=== PATIENT | female | born 2000 | race Caucasian/White ===

== ENCOUNTER → 2020-06-24 08:52 | Outpatient (BNVA) | payer OTHER, SELFPAY | PROVIDERS: Visit Provider Advanced Practice Midwife | DX: Z30.42 Encounter for surveillance of injectable contraceptive (principal) | CPT/HCPCS: 96372 ==

== ENCOUNTER → 2020-09-22 14:47 | Outpatient (BNVA) | payer OTHER, SELFPAY | PROVIDERS: Visit Provider Advanced Practice Midwife | DX: Z30.42 Encounter for surveillance of injectable contraceptive (principal) | CPT/HCPCS: 96372; J1050 ==

== ENCOUNTER → 2020-12-08 09:03 | Outpatient (BNVA) | payer OTHER, SELFPAY | PROVIDERS: Visit Provider Advanced Practice Midwife | DX: Z30.42 Encounter for surveillance of injectable contraceptive (principal) | CPT/HCPCS: 96372; J1050 ==

== ENCOUNTER 2021-02-27 14:01 | Outpatient (REF) | payer OTHER, SELFPAY ==
[2021-02-28 02:37] LABS: CT PCR NOT DETECTED (Not Detect.); NG PCR NOT DETECTED (Not Detect.)
== END 2021-02-27 14:02 | disposition home or self-care (01) ==
LOC: HO.LAB 14:01
PROVIDERS: Visit Provider Advanced Practice Midwife
DX: Z30.42 Encounter for surveillance of injectable contraceptive (principal); Z20.2 Contact with and (suspected) exposure to infections with a predominantly sexual mode of transmission
CPT/HCPCS: 87491; 87591; 88142; 96372

== ENCOUNTER → 2021-05-17 09:12 | Outpatient (BNVA) | payer OTHER, SELFPAY | PROVIDERS: Visit Provider Advanced Practice Midwife | DX: Z30.9 Encounter for contraceptive management, unspecified (principal) | CPT/HCPCS: 96372 ==

== ENCOUNTER → 2021-08-09 14:53 | Outpatient (BNVA) | payer OTHER, SELFPAY | PROVIDERS: Visit Provider Advanced Practice Midwife | DX: Z30.42 Encounter for surveillance of injectable contraceptive (principal) | CPT/HCPCS: 96372 ==

== ENCOUNTER → 2021-10-26 09:07 | Outpatient (BNVA) | payer OTHER, SELFPAY | PROVIDERS: Visit Provider Advanced Practice Midwife | DX: Z30.42 Encounter for surveillance of injectable contraceptive (principal) | CPT/HCPCS: 96372 ==

== ENCOUNTER → 2022-01-17 08:48 | Outpatient (BNVA) | payer OTHER, SELFPAY | PROVIDERS: Visit Provider Advanced Practice Midwife | DX: Z30.42 Encounter for surveillance of injectable contraceptive (principal) | CPT/HCPCS: 96372 ==

== ENCOUNTER 2022-03-02 14:58 | Outpatient (REF) | payer OTHER, SELFPAY ==
[2022-03-03 05:22] LABS: CT PCR NOT DETECTED (Not Detect.); NG PCR NOT DETECTED (Not Detect.)
[2022-03-08 06:46] LABS: HPV mRNA E6/E7 rflx Not Detected (Not Detected)
== END 2022-03-02 14:59 | disposition home or self-care (01) ==
LOC: HO.LAB 14:58
PROVIDERS: Visit Provider Advanced Practice Midwife
DX: R87.610 Atypical squamous cells of undetermined significance on cytologic smear of cervix (ASC-US) (principal); R87.810 Cervical high risk human papillomavirus (HPV) DNA test positive
CPT/HCPCS: 87491; 87591; 87624; 88142

== ENCOUNTER → 2022-04-09 09:35 | Outpatient (BNVA) | payer OTHER, SELFPAY | PROVIDERS: Visit Provider Advanced Practice Midwife | DX: Z30.42 Encounter for surveillance of injectable contraceptive (principal) | CPT/HCPCS: 96372 ==

== ENCOUNTER → 2022-07-02 08:54 | Outpatient (BNVA) | payer OTHER, SELFPAY | PROVIDERS: PCP Physician Assistant; Visit Provider Advanced Practice Midwife | DX: Z30.42 Encounter for surveillance of injectable contraceptive (principal) | CPT/HCPCS: 96372 ==

== ENCOUNTER → 2022-09-24 08:59 | Outpatient (BNVA) | payer OTHER, SELFPAY | PROVIDERS: PCP Physician Assistant; Visit Provider Advanced Practice Midwife | DX: Z30.42 Encounter for surveillance of injectable contraceptive (principal) | CPT/HCPCS: 96372 ==

== ENCOUNTER → 2022-12-11 08:09 | Outpatient (BNVA) | payer OTHER, SELFPAY | PROVIDERS: PCP Physician Assistant; Visit Provider Advanced Practice Midwife | DX: Z30.42 Encounter for surveillance of injectable contraceptive (principal) | CPT/HCPCS: 96372 ==

== ENCOUNTER → 2023-02-28 08:59 | Outpatient (BNVA) | payer OTHER, SELFPAY | PROVIDERS: PCP Physician Assistant; Visit Provider Advanced Practice Midwife | DX: Z30.42 Encounter for surveillance of injectable contraceptive (principal) | CPT/HCPCS: 96372 ==

== ENCOUNTER 2023-04-19 14:06 | Outpatient (REF) | payer OTHER, SELFPAY ==
[2023-04-19 18:14] LABS: CT PCR NOT DETECTED (Not Detect.); NG PCR NOT DETECTED (Not Detect.)
== END 2023-04-19 14:07 | disposition home or self-care (01) ==
LOC: HO.LNP 14:06
PROVIDERS: PCP Physician Assistant; Visit Provider Advanced Practice Midwife
DX: Z20.2 Contact with and (suspected) exposure to infections with a predominantly sexual mode of transmission (principal)
CPT/HCPCS: 0353U

== ENCOUNTER → 2023-04-19 14:06 | Outpatient (AMB) | payer OTHER, SELFPAY ==
[2023-04-19 14:12] VITALS: BP 116/72; BMI 24.7
--- NOTE | 2023-04-19 14:12 | MHC.OFFVIS ---
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 Scribed for FELICITA Ortiz by Nolvia Tolentino medical intern, on 04/19/2023 at 2:30 pm EST. Hydroelectric Component Machinist Required: No Information Interpreted: non-clinical & clinical Hospital Supervisor: Hospital Supervisor Present (Ivana CLEMENT) Accompanied by: Self / Same As Patient Allergies No Known Allergies Allergy (Verified 04/19/23 14:17) Is last menstrual period known: No HPI HPI Comments History of Present Illness Details She is a premenopausal woman presenting for annual exam. She was recently admitted to ED for allergic reaction. She admits to eating healthy and tries to stay active with exercise. Currently sexually active. Uses Depo Provera for BC. Denies vaginal itching and irritation. STD screening offered; she accepts. STD blood work offered; she declines. Denies family hx of breast, colon and ovarian cancer. Last pap smear 03/06/22. She denies any contraindications to control such as: migraines with aura, history of DVT or pulmonary emboli, high blood pressure, liver disease, thrombolic disorders, Lupus, +JASON, or smoking. Reviewed use, side effects and warnings including ACHES. FMHx of DVT and pulmonary emboli. 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 Sexual orientation: Straight/Heterosexual Gender identity: Female Female Reproductive History Menstrual control method: progesterone injection Date of last pap smear: 03/06/22 History of abnormal pap smear: Yes (Ascus,HPV +) Physical Exam Vital Signs: Last Vital Signs BP 116/72 04/19/23 14:12 BMI result Body Mass Index 24.7 Const General: cooperative, healthy appearing, no acute distress, well developed and alert Orientation/consciousness: patient oriented x3 HEENT Head: Yes normal to inspection Eyes General: appearance normal, both eyes and all related structures Neck Neck: Yes normal visual inspection Thyroid: Thyroid normal Chest Chest palpation & inspection: normal inspection of the chest Breast/axilla inspection: normal inspection of the breasts (no puckering, dimpling, peau de orange, retraction, discharge, masses) Breast/axilla palpation: normal palpation of the breasts Resp Effort & Inspection: normal respiratory effort GI Inspection: Yes normal to inspection Palpation (GI): Soft to palpation (to palpation) Rectal Exam - Female: deferred General: Yes bladder normal to inspection External Female Exam: normal external appearance and normal appearance of the urethra Speculum Exam - Vagina: normal appearance of the vagina, normal palpation and normal vaginal discharge Speculum Exam - Cervix: normal appearance of the cervix and normal palpation Bimanual exam- vagina & uterus: normal palpation and normal palpation Bimanual Exam- Adnexa, other: normal adnexae and no masses Skin General skin exam: no rashes or lesions noted Neuro General: patient oriented x3 Cognition (Neuro): normal cognition Extrem General: Yes normal to inspection Psych Attitude: cooperative Thought process: Normal thought process present Assessment & Plan Assessment & Plan (1) Encounter for well woman exam: Code(s): Z01.419 - Encounter for gynecological examination (general) (routine) without abnormal findings Plan: Discussed: Current recommendations for pap smears per ASCCP guidelines Breast awareness and periodic self breast exams. Maintaining a healthy lifestyle including a well balanced diet and routine exercise. Advised to contact about fathers diagnosis of DVT. All of her questions and concerns were addressed to the best of my ability. RTO in one year for AG. She denies any contraindications to control such as: migraines with aura, history of DVT or pulmonary emboli, high blood pressure, liver disease, thrombolic disorders, Lupus, +JASON, or smoking. Reviewed use, side effects and warnings including ACHES. FMHx of DVT. (2) Surveillance for Depo-Provera contraception: Code(s): Z30.42 - Encounter for surveillance of injectable contraceptive Plan: She was instructed to go to ER if she develops loss of vision, severe headache that does not resolve, chest pain, difficulty breathing, abdominal pain, or pain or tenderness in extremity or new breast lumps. Call the office with any concerns. (3) Potential exposure to STD: Code(s): Z20.2 - Contact with and (suspected) exposure to infections with a predominantly sexual mode of transmission Plan: BV testing and GC/CT panel done today. Await results and treat accordingly. Orders: Orders CT NG by PCR Today Z20.2 - Contact with and (suspected) exposure to infections with a predominantly sexual mode of transmission Medications: Refilled medroxyprogesterone (Depo-Provera) 150 mg IM [id number] 1 mL 4RF Coding Level of Care Code Est Pt Prev Care 18-39y(25593) Diagnoses Encounter for well woman exam Z01.419 Surveillance for Depo-Provera contraception Z30.42 Potential exposure to STD Z20.2
== END ==
PROVIDERS: PCP Physician Assistant; Visit Provider Advanced Practice Midwife
DX: Z01.419 Encounter for gynecological examination (general) (routine) without abnormal findings (principal); Z20.2 Contact with and (suspected) exposure to infections with a predominantly sexual mode of transmission
CPT/HCPCS: 99395

== ENCOUNTER 2023-05-24 15:03 | Outpatient (AMB) | payer OTHER, SELFPAY ==
[2023-05-24 15:43] VITALS: BMI 24.9
--- NOTE | 2023-05-24 15:43 | AM.OFFVISNUR ---
Intake Vital Signs 05/24/23 15:43 Height 5 ft 4 in Weight 145 lb 2 oz BMI 24.9 Intake Visit Reasons: DEPO Technical Operations Specialist Required: No Allergies No Known Allergies Allergy (Verified 04/19/23 14:17) Is last menstrual period known: No Post menopausal: No Patient : No Nursing Note Pt is here for scheduled Depo Provera injection. No c/o. Pt tolerated injection well. Pt will schedule her next injection in 12 weeks. No further questions. Office Procedures Depo Questionnaire If YES to any of the following questions, please consult a provider. Date of last injection: 02/28/23 Date of last gynecology exam: 04/19/23 Menstrual pattern since last injection has been: Not Applicable Irregular bleeding?: No Breast lumps or other breast changes?: No Changes in weight or appetite?: No Depression or changes in mood?: No Abnormal hair growth or loss?: No Skin problems (rash, acne, discoloration)?: No Pain at the injection site?: No Headaches?: No Nervousness?: No Abdominal pain or cramping?: No Dizziness or nausea?: No Fatigue or weakness?: No Decrease in sexual drive?: No Chest pain or shortness of breath?: No Swelling in arms or legs?: No Form completed by?: Ginny Curtis licensed massage practitioner Meds Depo-Provera 150 mg/mL intramuscular syringe Performing Provider: Keara Lutz CNM [place] [facility] [place] [facility] Administered by: Ginny Curtis on 05/24/23 15:46 Dose Route Admin Location Dispensed Lot Number Expiration Date [facility] Pole Shaver Helper 150 mg IM left deltoid 1 mL [id number] 06/08/25 73306-227-45 [facility] Coding Level of Care Code Established Pt Est Pt Level 1 (34202) Patient Type Established History Problem Focused Medical Decision Making Straight Forward Time Spent (min) 12 Assessment & Plan Assessment & Plan Orders: Orders AMB Medroxyprogesterone Injection Patient Supplied Today Z30.42 - Encounter for surveillance of injectable contraceptive
== END 2023-05-24 15:40 | disposition home or self-care (01) ==
PROVIDERS: PCP Physician Assistant; Visit Provider Advanced Practice Midwife
DX: Z30.42 Encounter for surveillance of injectable contraceptive (principal)

== ENCOUNTER → 2023-05-24 15:03 | Outpatient (BNVA) | payer OTHER, SELFPAY | PROVIDERS: PCP Physician Assistant; Visit Provider Advanced Practice Midwife | DX: Z30.42 Encounter for surveillance of injectable contraceptive (principal) | CPT/HCPCS: 96372; 99211; J1050 ==

== ENCOUNTER 2023-08-14 09:07 | Outpatient (AMB) | payer OTHER, SELFPAY ==
--- NOTE | 2023-08-14 09:18 | AM.OFFVISNUR ---
Intake Vital Signs 08/14/23 09:19 Height 5 ft 4 in Weight 69.513 kg BMI 26.3 Intake Visit Reasons: DEPO Allergies No Known Allergies Allergy (Verified 04/19/23 14:17) Nursing Note Dania is here today for her scheduled Depo-Provera Inj. She denies any problems or concerns. Pt was advised to schedule her next appt for Inj. in 12 weeks. Office Procedures Depo Questionnaire If YES to any of the following questions, please consult a provider. Date of last injection: 05/24/23 Date of last gynecology exam: 04/19/23 Menstrual pattern since last injection has been: Not Applicable Irregular bleeding?: No Breast lumps or other breast changes?: No Changes in weight or appetite?: No Depression or changes in mood?: No Abnormal hair growth or loss?: No Skin problems (rash, acne, discoloration)?: No Pain at the injection site?: No Headaches?: No Nervousness?: No Abdominal pain or cramping?: No Dizziness or nausea?: No Fatigue or weakness?: No Decrease in sexual drive?: No Chest pain or shortness of breath?: No Swelling in arms or legs?: No Any other problems or concerns?: none voiced Form completed by?: Gigi cortez LPN Office Meds Depo-Provera 150 mg/mL intramuscular syringe Performing Provider: Keara Lutz CNM Performing Location: [facility] [place] [facility] Administered by: Soila Cortez LPN on 08/14/23 09:19 Dose Route Admin Location Dispensed Lot Number Expiration Date [facility] [place] Cook Vegetable 150 mg IM left deltoid 1 mL [id number] 10/09/25 44445-141-22 [facility] Coding Level of Care Code Established Pt Est Pt Level 1 (68606) Patient Type Established History Problem Focused Exam Problem Focused Medical Decision Making Straight Forward Time Spent (min) 15 Assessment & Plan Assessment & Plan Orders: Orders AMB Medroxyprogesterone Injection Patient Supplied Today Z30.42 - Encounter for surveillance of injectable contraceptive
[2023-08-14 09:19] VITALS: BMI 26.3
== END 2023-08-14 09:30 | disposition home or self-care (01) ==
LOC: HO.HWS 09:07
PROVIDERS: PCP Physician Assistant; Visit Provider Advanced Practice Midwife
DX: Z30.42 Encounter for surveillance of injectable contraceptive (principal)

== ENCOUNTER → 2023-08-14 09:07 | Outpatient (BNVA) | payer OTHER, SELFPAY | PROVIDERS: PCP Physician Assistant; Visit Provider Advanced Practice Midwife | DX: Z30.42 Encounter for surveillance of injectable contraceptive (principal) | CPT/HCPCS: 96372; 99211; J1050 ==

== ENCOUNTER 2023-11-05 08:54 | Outpatient (AMB) | payer OTHER, SELFPAY ==
[2023-11-05 09:34] VITALS: BMI 24.7
--- NOTE | 2023-11-05 09:34 | AM.OFFVISNUR ---
Intake Vital Signs 11/05/23 09:34 Height 5 ft 4 in Weight 65.317 kg BMI 24.7 Intake Visit Reasons: DEPO Allergies No Known Allergies Allergy (Verified 04/19/23 14:17) Nursing Note Ivette is here today for her scheduled Depo-provera inj. Pt denies any problems or concerns. Return in 12 wks for next inj. Office Procedures Depo Questionnaire If YES to any of the following questions, please consult a provider. Date of last injection: 08/14/23 Date of last gynecology exam: 04/19/23 Menstrual pattern since last injection has been: Not Applicable Irregular bleeding?: No Breast lumps or other breast changes?: No Changes in weight or appetite?: No Depression or changes in mood?: No Abnormal hair growth or loss?: No Skin problems (rash, acne, discoloration)?: No Pain at the injection site?: No Headaches?: No Nervousness?: No Abdominal pain or cramping?: No Dizziness or nausea?: No Fatigue or weakness?: No Decrease in sexual drive?: No Chest pain or shortness of breath?: No Swelling in arms or legs?: No Form completed by?: Gigi Huang LPN Office Meds Depo-Provera 150 mg/mL intramuscular syringe Performing Provider: Keara Lutz CNM Performing Location: [facility] [place] [facility] Administered by: Soila Huang LPN on 11/05/23 09:34 Dose Route Admin Location Dispensed Lot Number Expiration Date [facility] Motorcycle Service Technician 150 mg IM left deltoid 1 mL [id number] 08/08/24 85318-134-59 [facility] Coding Level of Care Code Established Pt Est Pt Level 1 (49124) Patient Type Established History Problem Focused Exam Problem Focused Medical Decision Making Straight Forward Time Spent (min) 20 Assessment & Plan Assessment & Plan Orders: Orders AMB Medroxyprogesterone Injection Patient Supplied Today Z30.42 - Encounter for surveillance of injectable contraceptive
== END 2023-11-05 09:26 | disposition home or self-care (01) ==
LOC: HO.HWS 08:55
PROVIDERS: PCP Physician Assistant; Visit Provider Advanced Practice Midwife
DX: Z30.42 Encounter for surveillance of injectable contraceptive (principal)

== ENCOUNTER → 2023-11-05 08:54 | Outpatient (BNVA) | payer OTHER, SELFPAY | PROVIDERS: PCP Physician Assistant; Visit Provider Advanced Practice Midwife | DX: Z30.42 Encounter for surveillance of injectable contraceptive (principal) | CPT/HCPCS: 96372; 99211; J1050 ==

== ENCOUNTER 2024-01-28 08:59 | Outpatient (AMB) | payer OTHER, SELFPAY ==
[2024-01-28 09:06] VITALS: BP 124/72; BMI 24.2
--- NOTE | 2024-01-28 09:06 | MHC.OFFVIS ---
Vital Signs 01/28/24 09:06 Height 5 ft 4 in Weight 141 lb BMI 24.2 BP 124/72 Blood Pressure Location Rt brachial Position Sitting Intake Visit Reasons: breast check/DEPO Allergies No Known Allergies Allergy (Verified 01/28/24 09:07) Is last menstrual period known: No (depo ) HPI Comments Details: Ronda is here today for an unscheduled visit while she was having her Depo-Provera she reported to the nurse she was having some breast discomfort. Pain on the left breast medial aspect at 09:00 o'clock for a month and a half, most days, no previous injury, breast biopsy, infection symptoms, nipple discharge or skin changes. Family history of breast cancer. Current Depo Provera use. 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 Sexual orientation: Straight/Heterosexual Gender identity: Female Review of Systems Const All systems reviewed & are unremarkable except as noted in HPI and below Reports as per HPI Eyes Reports no additional complaints ENT Reports no additional complaints Card Reports no additional complaints Resp Reports no additional complaints GI Reports as per HPI and Reports no additional complaints Reports as per HPI Musc Reports no additional complaints Skin/Breast Reports as per HPI Neuro Reports no additional complaints Psych Reports no additional complaints Endo Reports no additional complaints Lai/Lymph Reports no additional complaints Aller/Immun Reports no additional complaints Physical Exam Vital Signs: Last Vital Signs BP 124/72 01/28/24 09:06 BMI result Body Mass Index 24.2 Const General: cooperative, healthy appearing, no acute distress, well developed and alert Orientation/consciousness: patient oriented x3 HEENT Head: Yes normal to inspection Eyes General: appearance normal, both eyes and all related structures Neck Neck: Yes normal visual inspection Thyroid: Thyroid normal Chest Other: Tenderness to the medial aspect of the breast small palpable roundness not well defined at 09:00 o'clock position of left breast Chest palpation & inspection: normal inspection of the chest and other (no puckering, dimpling, peau de orange, retraction, discharge, masses) Breast/axilla inspection: normal inspection of the breasts Breast/axilla palpation: normal palpation of the breasts Resp Effort & Inspection: normal respiratory effort GI Inspection: Yes normal to inspection Palpation (GI): Soft to palpation Rectal Exam - Female: deferred General: Yes bladder normal to palpation External Female Exam: normal external appearance and normal appearance of the urethra Speculum Exam - Vagina: normal appearance of the vagina, normal palpation and normal vaginal discharge Speculum Exam - Cervix: normal appearance of the cervix and normal palpation Bimanual exam- vagina & uterus: normal bimanual exam, normal palpation, uterine size normal, bladder normal to palpation, normal palpation and non-tender Bimanual Exam- Adnexa, other: no masses Skin General skin exam: no rashes or lesions noted Rashes: no rashes Neuro General: patient oriented x3 Cognition (Neuro): normal cognition Extrem General: Yes normal to inspection Psych Attitude: cooperative Thought process: Normal thought process present Assessment & Plan Assessment & Plan (1) Breast pain, left: Code(s): N64.4 - Mastodynia Category: Medical Plan: . (2) Breast pain: Code(s): N64.4 - Mastodynia Category: Medical Plan Discussed common causes for breast pain, workup to include breast ultrasound, All of her questions and concerns were addressed to the best of my ability and shared decision making. She is agreeable to the plan of care. Scheduled breast ultrasound, follow up after to discuss results. If pain or lump area increases in size or is bothersome to call sooner for evaluation. This note is constructed using voice recognition software. While every effort has been made to ensure accuracy, free lance artist errors may have been included. Orders: Orders US breast LT complete Today N64.4 - Mastodynia Coding Level of Care Code Est Pt Level 3 (28784) Diagnoses Breast pain, left N64.4 Breast pain N64.4
== END 2024-01-28 09:19 | disposition home or self-care (01) ==
PROVIDERS: PCP Physician Assistant; Visit Provider Advanced Practice Midwife
DX: N64.4 Mastodynia (principal); Z30.9 Encounter for contraceptive management, unspecified
CPT/HCPCS: 99213

== ENCOUNTER → 2024-01-28 08:59 | Outpatient (BNVA) | payer OTHER, SELFPAY | PROVIDERS: PCP Physician Assistant; Visit Provider Advanced Practice Midwife | DX: Z30.42 Encounter for surveillance of injectable contraceptive (principal); N64.4 Mastodynia | CPT/HCPCS: 96372; J1050 ==

== ENCOUNTER 2024-02-17 12:51 | Outpatient (REF) | payer OTHER, SELFPAY ==
--- NOTE | ~2024-02-17 | US_ITS ---
EXAMINATION: US DIAGNOSTIC ULTRASOUND BREAST, LEFT CLINICAL INFORMATION: 24-year-old female, complaining of 2 left palpable lumps with associated tenderness, pea-sized, 9-10 o'clock axis axis x1 month as well as 4:00 axis. No significant family history. COMPARISON: None available. Baseline study. TECHNIQUE: Ultrasound of the breast is performed with real-time waldron scale imaging and color Doppler. Left breast was imaged from the 7:00 to 11:00 axis, at 1:00 to the 4:00 axis, with help from the patient indicating areas of concern. FINDINGS: Within the 11:00 axis of the left breast, 3 cm from the nipple, there is a minimally complicated cyst with low-level internal echoes, circumscribed borders, wider than tall, good through transmission, measuring 7 x 4 x 3 mm. No internal color Doppler flow seen. No surrounding distortion. This correlates with the upper area of palpable concern. This is probably benign, representing a minimally complicated cyst. Within the 4:00 axis of the left breast, 11 cm from the nipple, there is a benign-appearing intramammary lymph node measuring 5 mm in diameter, correlating with the second area of palpable concern. This has a prominent fatty hilum, thin cortex, and normal adiel morphology. This finding is benign and no further follow-up recommended. No additional abnormalities are detected. US/US breast LT limited mamm only IMPRESSION: 1. Benign lymph node 4:00 axis left breast measuring 5 mm. This correlates with the lateral axis palpable area of concern. 2. Minimally complicated cyst 11:00 axis left breast measuring 7 x 4 x 3 mm. This is probably benign, and represents the medial area of palpable concern. Six-month follow-up targeted left breast ultrasound recommended to ensure stability. Findings and recommendations discussed with the patient by the technologist. ASSESSMENT: BI-RADS 3: Probably Benign-6 month follow-up recommended RECOMMENDATION: Diagnostic targeted left ultrasound in 6 months.
== END 2024-02-17 12:52 | disposition home or self-care (01) ==
LOC: HO.MAMMO 12:51
PROVIDERS: PCP Internal Medicine; Visit Provider Advanced Practice Midwife
DX: N64.4 Mastodynia (principal)
CPT/HCPCS: 76642

== ENCOUNTER → 2024-02-17 13:00 | Outpatient (BNV) | payer OTHER, SELFPAY | PROVIDERS: PCP Internal Medicine; Visit Provider Radiology Diagnostic Radiology | DX: N63.25 Unspecified lump in the left breast, overlapping quadrants (principal) | CPT/HCPCS: 76642 ==

== ENCOUNTER 2024-04-14 09:00 | Outpatient (AMB) | payer OTHER, SELFPAY ==
[2024-04-14 09:09] VITALS: BMI 24.6
--- NOTE | 2024-04-14 09:09 | AM.OFFVISNUR ---
Vital Signs 04/14/24 09:09 Height 5 ft 4 in Weight 64.977 kg BMI 24.6 Intake Visit Reasons: Depo Allergies No Known Allergies Allergy (Verified 01/28/24 09:07) Nursing Note Dania is here today for her scheduled Depo-Provera INJ. NO c/o. pt has AG scheduled for 05/05/24 @ 1pm. Office Procedures Depo Questionnaire If YES to any of the following questions, please consult a provider. Date of last injection: 01/28/24 Date of last gynecology exam: 04/19/23 Menstrual pattern since last injection has been: Not Applicable Irregular bleeding?: No Breast lumps or other breast changes?: No Changes in weight or appetite?: No Depression or changes in mood?: No Abnormal hair growth or loss?: No Skin problems (rash, acne, discoloration)?: No Pain at the injection site?: No Headaches?: No Nervousness?: No Abdominal pain or cramping?: No Dizziness or nausea?: No Fatigue or weakness?: No Decrease in sexual drive?: No Chest pain or shortness of breath?: No Swelling in arms or legs?: No Form completed by?: Gigi Huang LPN Office Meds Depo-Provera 150 mg/mL intramuscular syringe Performing Provider: Keara Lutz CNM Performing Location: [facility] [place] [facility] Administered by: Soila Huang LPN on 04/14/24 09:10 Dose Route Admin Location Dispensed Lot Number Expiration Date [facility] Conceptor 150 mg IM left deltoid 1 mL [id number] 09/08/26 73335-582-48 [facility] Assessment & Plan Assessment & Plan Orders: Orders AMB Medroxyprogesterone Injection Patient Supplied Today Z30.42 - Encounter for surveillance of injectable contraceptive Medications: New Depo-Provera (medroxyprogesterone) 150 mg IM ONCE 1 mL 0RF NS Z30.42 - Encounter for surveillance of injectable contraceptive
== END 2024-04-14 09:08 | disposition home or self-care (01) ==
LOC: HO.HWS 09:00
PROVIDERS: PCP Internal Medicine; Visit Provider Advanced Practice Midwife
DX: Z30.42 Encounter for surveillance of injectable contraceptive (principal)

== ENCOUNTER → 2024-04-14 09:00 | Outpatient (BNVA) | payer OTHER, SELFPAY | PROVIDERS: PCP Internal Medicine; Visit Provider Advanced Practice Midwife | DX: Z30.42 Encounter for surveillance of injectable contraceptive (principal) | CPT/HCPCS: 96372; 99211; J1050 ==

== ENCOUNTER 2024-05-05 12:50 | Outpatient (AMB) | payer OTHER, SELFPAY ==
--- NOTE | 2024-05-05 12:54 | A.OFFVIS_ITS ---
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 Doing well with concerns: Left breast pain, history of left breast cyst and lymph gland, has six-month follow up booked. She tries to eat healthy, lactose intolerant, does not have calcium products in her diet regularly, and stays active with walking. No menses with Depo-Provera. Happy on the method wants to continue. She denies any contraindications to control such as: migraines with aura, history of DVT or pulmonary emboli, high blood pressure, liver disease, thrombolic disorders, Lupus, +JASON, breast cancer, or smoking. Currently is not sexually active. She denies vaginal itching and irritation. STI screening offered; she declines. Denies family history of breast, ovarian or colon cancer. Last pap smear 2021, negative, 2020 negative, prior HPV positive and ASCUS. 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 Sexual orientation: Straight/Heterosexual Gender identity: Female Female Reproductive History Menstrual control method: progesterone injection (Depo 04/14/24) Total pregnancies: 0 Date of last pap smear: 03/02/22 (neg pap and hpv) History of abnormal pap smear: Yes (01/26 ascus +hpv) Review of Systems Const All systems reviewed & are unremarkable except as noted in HPI and below Reports as per HPI Eyes Reports no additional complaints ENT Reports no additional complaints Card Reports no additional complaints Resp Reports no additional complaints GI Reports as per HPI and Reports no additional complaints Reports as per HPI Musc Reports no additional complaints Skin/Breast Reports as per HPI Neuro Reports no additional complaints Psych Reports no additional complaints Endo Reports no additional complaints Lai/Lymph Reports no additional complaints Aller/Immun Reports no additional complaints Physical Exam Vital Signs: Last Vital Signs BP 110/74 05/05/24 12:55 BMI result Body Mass Index 24.4 Const General: cooperative, healthy appearing, no acute distress, well developed and alert Orientation/consciousness: patient oriented x3 HEENT Head: Yes normal to inspection Eyes General: appearance normal, both eyes and all related structures Neck Neck: Yes normal visual inspection Thyroid: Thyroid normal Chest Other: Slight tenderness at the left breast medial aspect approximately 7 o'clock position Chest palpation & inspection: normal inspection of the chest and other (no puckering, dimpling, peau de orange, retraction, discharge, masses) Breast/axilla inspection: normal inspection of the breasts Breast/axilla palpation: normal palpation of the breasts Resp Effort & Inspection: normal respiratory effort GI Inspection: Yes normal to inspection Palpation (GI): Soft to palpation Rectal Exam - Female: deferred General: Yes bladder normal to palpation External Female Exam: normal external appearance and normal appearance of the urethra Speculum Exam - Vagina: normal appearance of the vagina, normal palpation and normal vaginal discharge Speculum Exam - Cervix: normal appearance of the cervix and normal palpation Bimanual exam- vagina & uterus: normal bimanual exam, normal palpation, uterine size normal, bladder normal to palpation, normal palpation and non-tender Bimanual Exam- Adnexa, other: no masses Skin General skin exam: no rashes or lesions noted Rashes: no rashes Neuro General: patient oriented x3 Cognition (Neuro): normal cognition Extrem General: Yes normal to inspection Psych Attitude: cooperative Thought process: Normal thought process present Results Reviewed Results Reviewed: [facility] [address] [place] [address] Ultrasound Report Signed Patient: Dania Ferreira MR#: [id number] : 2000 Acct:[id number] Age/Sex: 24 / F ADM Date: 02/17/24 Loc: HO.MAMMO Attending Dr: Keara Lutz CNM Ordering Physician: Keara Lutz CNM Date of Service: 02/17/24 Procedure(s): US breast LT limited mamm only Accession Number(s): [id number] cc: Keara Lutz CNM; Nihsi Thomson MD~ EXAMINATION: US DIAGNOSTIC ULTRASOUND BREAST, LEFT CLINICAL INFORMATION: 24-year-old female, complaining of 2 left palpable lumps with associated tenderness, pea-sized, 9-10 o'clock axis axis x1 month as well as 4:00 axis. No significant family history. COMPARISON: None available. Baseline study. TECHNIQUE: Ultrasound of the breast is performed with real-time waldron scale imaging and color Doppler. Left breast was imaged from the 7:00 to 11:00 axis, at 1:00 to the 4:00 axis, with help from the patient indicating areas of concern. FINDINGS: Within the 11:00 axis of the left breast, 3 cm from the nipple, there is a minimally complicated cyst with low-level internal echoes, circumscribed borders, wider than tall, good through transmission, measuring 7 x 4 x 3 mm. No internal color Doppler flow seen. No surrounding distortion. This correlates with the upper area of palpable concern. This is probably benign, representing a minimally complicated cyst. Within the 4:00 axis of the left breast, 11 cm from the nipple, there is a benign-appearing intramammary lymph node measuring 5 mm in diameter, correlating with the second area of palpable concern. This has a prominent fatty hilum, thin cortex, and normal adiel morphology. This finding is benign and no further follow-up recommended. No additional abnormalities are detected. US/US breast LT limited mamm only IMPRESSION: 1. Benign lymph node 4:00 axis left breast measuring 5 mm. This correlates with the lateral axis palpable area of concern. 2. Minimally complicated cyst 11:00 axis left breast measuring 7 x 4 x 3 mm. This is probably benign, and represents the medial area of palpable concern. Six-month follow-up targeted left breast ultrasound recommended to ensure stability. Findings and recommendations discussed with the patient by the technologist. ASSESSMENT: BI-RADS 3: Probably Benign-6 month follow-up recommended RECOMMENDATION: Diagnostic targeted left ultrasound in 6 months. 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 Pap due in 1 year. Breast awareness and periodic breast exams. Keep follow up in August for breast evaluation. Reviewed [id number] self-help measures 4 discomfort including Tylenol and arnica gel. Offered referral to breast operations consultant due to findings and ongoing discomfort, she would like to talk to her mom who is a nurse and then agrees to send me a message in her decision whether she would want a sooner consult or just keep the ultrasound follow up appointment. Maintain a healthy lifestyle including a well balanced diet and routine exercise. Discussed importance of calcium and weight-bearing exercises with Depo-Provera use. Reviewed some forms of calcium that can be taken as a supplement in d ietary, handout on calcium food sources provided today. Use condoms for STI and prevention. control hormone use warnings: go to ER if and loss of vision, blindness, severe headache, chest pain or difficulty breathing, severe abdominal pain, or any pain or swelling in an extremity. Rx sent to [facility] pharmacy for Depo-Provera. Patient verbalizes understanding and agrees to the plan of care. She was given opportunity to ask questions and all questions were answered to the best of my ability. 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 This note is constructed using voice recognition software. While every effort has been made to ensure accuracy, breakdown mill operator errors may have been included. Medications: Refilled medroxyprogesterone (Depo-Provera) 150 mg IM [id number] 1 mL 4RF Coding Level of Care Code Est Pt Prev Care 18-39y(31714) Diagnoses Encounter for well woman exam with routine gynecological exam Z01.419 Breast cyst N60.09 Surveillance for Depo-Provera contraception Z3042
[2024-05-05 12:55] VITALS: BP 110/74; BMI 24.4
== END 2024-05-05 14:26 | disposition home or self-care (01) ==
PROVIDERS: PCP Physician Assistant; Visit Provider Advanced Practice Midwife
DX: Z01.419 Encounter for gynecological examination (general) (routine) without abnormal findings (principal); N60.09 Solitary cyst of unspecified breast; Z30.42 Encounter for surveillance of injectable contraceptive
CPT/HCPCS: 99395

== ENCOUNTER → 2024-05-05 12:50 | Outpatient (BNVA) | payer OTHER, SELFPAY | PROVIDERS: PCP Physician Assistant; Visit Provider Advanced Practice Midwife ==

== ENCOUNTER 2024-06-30 08:58 | Outpatient (AMB) | payer OTHER, SELFPAY ==
[2024-06-30 09:15] VITALS: BMI 24.4
--- NOTE | 2024-06-30 09:15 | AM.OFFVISNUR ---
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 No c/o, pt tolerated injection well. She will schedule her next injection in 12 weeks. Pt verbalizes understanding and agrees with plan. No further questions. Office Procedures Depo Questionnaire If YES to any of the following questions, please consult a provider. Date of last injection: 04/14/24 Date of last gynecology exam: 05/05/24 Menstrual pattern since last injection has been: Not Applicable Irregular bleeding?: No Breast lumps or other breast changes?: No Changes in weight or appetite?: No Depression or changes in mood?: No Abnormal hair growth or loss?: No Skin problems (rash, acne, discoloration)?: No Pain at the injection site?: No Headaches?: No Nervousness?: No Abdominal pain or cramping?: No Dizziness or nausea?: No Fatigue or weakness?: No Decrease in sexual drive?: No Chest pain or shortness of breath?: No Swelling in arms or legs?: No Form completed by?: Ginny Curtis auto headlight mechanic Meds Depo-Provera 150 mg/mL intramuscular syringe Performing Provider: Keara Lutz CNM Performing Location[place] [facility] [place] [facility] Administered by: Ginny Curtis on 06/30/24 09:17 Dose Route Admin Location Dispensed Lot Number Expiration Date [facility] Stick Welder 150 mg IM right deltoid 1 mL [id number] 09/08/25 56544-626-03 REES46 Assessment & Plan Assessment & Plan (1) Depot contraception: Code(s): Z30.42 - Encounter for surveillance of injectable contraceptive Category: Medical Plan Schedule next injection in 12 weeks. Orders: Orders AMB Medroxyprogesterone Injection Patient Supplied Today Z30.42 - Encounter for surveillance of injectable contraceptive Medications: New Depo-Provera (medroxyprogesterone) 150 mg IM ONCE 1 mL 0RF NS Z30.42 - Encounter for surveillance of injectable contraceptive Patient Instructions: Schedule next injection in 12 weeks.
== END 2024-06-30 09:13 | disposition home or self-care (01) ==
LOC: HO.HWS 08:58
PROVIDERS: PCP Physician Assistant; Visit Provider Advanced Practice Midwife
DX: Z30.42 Encounter for surveillance of injectable contraceptive (principal)

== ENCOUNTER → 2024-06-30 08:58 | Outpatient (BNVA) | payer OTHER, SELFPAY | PROVIDERS: PCP Physician Assistant; Visit Provider Advanced Practice Midwife | DX: Z30.42 Encounter for surveillance of injectable contraceptive (principal) | CPT/HCPCS: 96372; 99211; J1050 ==

== ENCOUNTER 2024-09-21 08:53 | Outpatient (AMB) | payer OTHER, SELFPAY ==
[2024-09-21 09:13] VITALS: BMI 24.0
--- NOTE | 2024-09-21 09:13 | AM.OFFVISNUR ---
Vital Signs 09/21/24 09:13 Height 5 ft 4 in Weight 140 lb BMI 24.0 Intake Visit Reasons: DEPO Allergies No Known Allergies Allergy (Verified 05/05/24 12:55) Nursing Note Ivette is here today for her scheduled Depo-Provera inj. She denies any complaints at this time. Pt to return in 12 weeks for Next inj. Office Procedures Depo Questionnaire If YES to any of the following questions, please consult a provider. Date of last injection: 06/30/24 Date of last gynecology exam: 05/05/24 Menstrual pattern since last injection has been: Not Applicable Irregular bleeding?: No Breast lumps or other breast changes?: No Changes in weight or appetite?: No Depression or changes in mood?: No Abnormal hair growth or loss?: No Skin problems (rash, acne, discoloration)?: No Pain at the injection site?: No Headaches?: No Nervousness?: No Abdominal pain or cramping?: No Dizziness or nausea?: No Fatigue or weakness?: No Decrease in sexual drive?: No Chest pain or shortness of breath?: No Swelling in arms or legs?: No Form completed by?: Gigi Huang LPN Office Meds Depo-Provera 150 mg/mL intramuscular syringe Performing Provider: Keara Lutz CNM [place] [facility] [place] [facility] Administered by: Solia Huang LPN on 09/21/24 09:13 Dose Route Admin Location Dispensed Lot Number Expiration Date [facility] Administration Clerk 150 mg IM lt. deltoid 1 mL [id number] 12/07/25 35388-885-59 MYLAN Assessment & Plan Assessment & Plan Orders: Orders AMB Medroxyprogesterone Injection Patient Supplied Today Z30.42 - Encounter for surveillance of injectable contraceptive Medications: New Depo-Provera (medroxyprogesterone) 150 mg IM ONCE 1 mL 0RF NS Z30.42 - Encounter for surveillance of injectable contraceptive
== END 2024-09-21 09:27 | disposition home or self-care (01) ==
PROVIDERS: PCP Physician Assistant; Visit Provider Advanced Practice Midwife
DX: Z30.42 Encounter for surveillance of injectable contraceptive (principal)

== ENCOUNTER → 2024-09-21 08:53 | Outpatient (BNVA) | payer OTHER, SELFPAY | PROVIDERS: PCP Physician Assistant; Visit Provider Advanced Practice Midwife | DX: Z30.42 Encounter for surveillance of injectable contraceptive (principal) | CPT/HCPCS: 96372; 99211; J1050 ==

== ENCOUNTER 2024-12-14 08:49 | Outpatient (AMB) | payer OTHER, SELFPAY ==
[2024-12-14 09:05] VITALS: BMI 24.0
--- NOTE | 2024-12-14 09:05 | AM.OFFVISNUR ---
Vital Signs 12/14/24 09:05 Height 5 ft 4 in Weight 140 lb BMI 24.0 Intake Visit Reasons: DEPO Allergies No Known Allergies Allergy (Verified 05/05/24 12:55) Nursing Note Georgia is here today for her scheduled Depo-Provera INJ. She denies an y problems or concerns. Follow up in 12 weeks for next injection. Office Procedures Depo Questionnaire If YES to any of the following questions, please consult a provider. Date of last injection: 09/21/24 Date of last gynecology exam: 05/05/24 Menstrual pattern since last injection has been: Not Applicable Irregular bleeding?: Not Applicable Breast lumps or other breast changes?: No Changes in weight or appetite?: No Depression or changes in mood?: No Abnormal hair growth or loss?: No Skin problems (rash, acne, discoloration)?: No Pain at the injection site?: No Headaches?: No Nervousness?: No Abdominal pain or cramping?: No Dizziness or nausea?: No Fatigue or weakness?: No Decrease in sexual drive?: No Chest pain or shortness of breath?: No Swelling in arms or legs?: No Form completed by?: Gigi Huang LPN Office Meds Depo-Provera 150 mg/mL intramuscular syringe Performing Provider: Keara Lutz CNM Performing Location: [facility] [place] [facility] Administered by: Soila Huang LPN on 12/14/24 09:06 Dose Route Admin Location Dispensed Lot Number Expiration Date [facility] Channel Man 150 mg IM left deltoid 1 mL [id number] 01/06/26 83822-833-69 MYLAN Assessment & Plan Assessment & Plan Orders: Orders AMB Medroxyprogesterone Injection Patient Supplied Today Z30.9 - Encounter for contraceptive management, unspecified Medications: New Depo-Provera (medroxyprogesterone) 150 mg IM ONCE 1 mL 0RF NS Z30.9 - Encounter for contraceptive management, unspecified Coding Level of Care Code Established Pt Est Pt Level 1 (72660) Patient Type Established History Problem Focused Exam Problem Focused Medical Decision Making Straight Forward Time Spent (min) 20
--- OUTSIDE RECORDS SUMMARY | 2024-12-14 09:32 | XMS_ITS ---
Author Organization [facility] Address [address] [place] [address] Care Team Providers Care Manager Endoscopy Name Role Phone Nishi Thomson Primary Care Provider Celestine Sutherland Unavailable [phone] Allergies Allergen (clinical drug ingredient) Drug/Non Drug Allergy documented on EMR Reaction Allergy Type Onset Date Status Gluten Gluten Unknown Allergy Active lactose Lactose (Intolerance) Unknown Drug Allergy Active No Known Drug Allergy Unknown Drug Allergy Active REASON FOR VISIT migraine Medications Medication SIG (Take, Route, Frequency, Duration) Notes Start Date End Date Status Nortriptyline HCl 10 MG TAKE 2 CAPSULES BY MOUTH ONCE DAILY Oral Once a day for 90 days Active Nurtec 75 MG 1 tablet on the tongue and allow to dissolve Orally every other day for 30 days Active Emgality 120 MG/ML Inject 1 autoinjector Subcutaneous every 27-30 days for 90 days Active Propranolol HCl 20 MG 1 tablet Orally On ce a day at bedtime x1 week, then increase to twice a day and continue for 30 days 07/15/2024 Active predniSONE 20 MG standing order as directed Orally As needed per building materials sales attendant 01/10/2023 Active Famotidine 40 MG 1 tablet Orally Twice a day PRN Active Rizatriptan Benzoate 10 MG 1 tablet Oral prn at onset of migraine. May repeat once after 2 hrs if headache returns. for 30 days PRN 06/27/2021 Active Depo-Provera 150 MG/ML 1 ml Intramuscular last depo 08/09/21 Active EPINEPHrine (Anaphylaxis) 30 MG/30ML as directed Injection As needed for anaphylaxis per building materials sales attendant 01/10/2023 Active Xolair 150 MG/ML 2 injections Subcutaneous once per month per building materials sales attendant 12/27/2022 Active Ondansetron HCl 8 MG 1 tablet as needed Orally q6h prn nausea for 30 day(s) PRN Active ZyrTEC Allergy 10 MG 1 tablet Orally at bedtime Active Acetaminophen Extra Strength 500 MG 1 tablet as needed Orally every 6 hrs PRN Active Ibuprofen Childrens 100 MG/5ML 20 ml with food or milk as needed Orally prn headache difficulty swallowing pills Active Social History Tobacco Use: Social History Observation Description Date Details (start date - stop date) Never Smoker NA - NA Sex Assigned At : Social History Observation Description Sex Assigned At Female Tobacco Control (Standard) Question Answer Notes Tobacco use: Nonsmoker Problems Problem Type SNOMED Code ICD Code Onset Dates Problem Status W/U Status Risk Notes Problem Trigeminal neuralgia ([id number]) Trigeminal neuralgia (G50.0) Active confirmed Problem Myalgia of auxiliary muscles, 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 [address] [place] [address] 08/20/2024 Celestine Poole Migraine without aur a, intractable, without status migrainosus G43.019 ; Occipital neuralgia M54.81 ; Trigeminal neuralgia G50.0 and Myalgia of auxiliary muscles, head and neck M79.12 Assessments Encounter Date Diagnosis (ICD Code) Assessment Notes Treatment Notes Treatment Clinical Notes Section Notes 08/20/2024 Migraine without aura, intractable, without status migrainosus (ICD-10 - G43.019) Plan: -Continue above medications as prescribed. -Pt with tenderness to scalp and bilateral occipital nerves on exam causing radiating pain up over head into left eye. Pt pain pattern consistent with occipital neuralgia, will continue with occipital nerve block and trigger point injections. 08/20/2024 Occipital neuralgia (ICD-10 - M54.81) 08/20/2024 Trigeminal neuralgia (ICD-10 - G50.0) 08/20/2024 Myalgia of auxiliary muscles, head and neck (ICD-10 - M79.12) Plan Of Treatment Medication Medication Name Sig Start Date Stop Date Notes Nortriptyline HCl 10 MG TAKE 2 CAPSULES BY MOUTH ONCE DAILY Oral Once a day for 90 days Nurtec 75 MG 1 tablet on the tong ue and allow to dissolve Orally every other day for 30 days Emgality 120 MG/ML Inject 1 autoinjecto r Subcutaneous every 27-30 days for 90 days Treatment Notes Assessment Notes Migraine without aura, intra ctable, without status migrainosus Plan: -Continue above medications as prescribed. -Pt with tenderness to scalp and bilateral occipital nerves on exam causing radiating pain up over head into left eye. Pt pain pattern consistent with occipital neuralgia, will continue with occipital nerve block and trigger point injections. Next Appt Details Follow Up: 1 month, Reason: Procedure Notes * Category Sub-Category Detail Notes Trigeminal Block Consent Informed consen t obtained. The procedures are understood by the patient. The risks and benefits were discussed as explained on our consent form. All questions were answered to her satisfaction. Treatment In a sitting positio n, The area over the injection sites were prepped with alcohol utilizing sterile technique.Using a 30-gauge, 1/2 inch needle, I then injected the trigger point with approximately 4 mL of a solution containing equal parts of 2% buvivacaine, 40mg/mL Depomedrol, and 30 mg/mL Ketorolac. Negative aspiration was performed. Excellent hemostasis was maintained throughout. Post-injection precautions were reviewed with the patient., Injection sites , Inject 0.5 mL Left Frontalis x 4 site, Inject 0.5 mL Left Epicranial Eponeurosis x 2 sites, Inject 0.5 mL Left parietal x 2 sites Occipital Nerve Block Consent Informed c onsent obtained. The procedure risks, hazards and alternatives were discussed with the patient and proper consent was obtained. All questions were answered to the patients satisfaction.The procedures are understood by the patient. Treatment The skin was prepped in the usual sterile fashion. Using a 30-gauge, 1/2 inch needle. Using a 30-gauge, 1/2 inch needle, I then injected the sites with approximately 4 mL of a solution containing equal parts of 0.25% Bupivacaine 2.5 mg/mL, Methyprednisilone 40mg/mL and Ketorolac 30 mg/mLInjected into the lesser and greater Occipital sites , Patient information: Procedural Pause Procedural pause con ducted to verify: correct patient identity, procedure to be performed, correct side and site, correct patient position, and special requirements Post Procedure Following the proced ure, the patient noted a substantial reduction in the pre-procedure pain. They have been instructed in post-procedure care Progress Notes * Eric CANOOB: [birth year] (24 yo F)Acc No.[id number]:08/20/2024 Patient:?Dania CANO Provider:?Celestine Poole MD?Resourc e:[facility] :2000???Age:24 Y???Sex:Female D ate:08/20/2024 Address:[address] [place], [place] [id number] Pcp:Nishi Flores Subjective: * Chief Complaints: * ???Migraine * HPI: ???Headache:? Katherine is a 24 year old pleasant female here today for trigger point injections-nerve blocks.? She had no ae's from her first trigger point injections. Dania states that she had no headache for two weeks after.? After discussing the benefits of adding Ketorolac she agreed to add to the mix. She reports level 4/10 headache and stated her headache are in the occipital area and moves forward to the parietal and temporal regions on the left side only. We discussed the use for Nerve Blocks and the frequency of the treatment. * ROS:?General / Constitutional:?Patient denies?change in appetite, chills, fatigue, fever, headache, lightheadedness, sleep disturbance, weakness.? * Medical History:? * Surgical History:? * Hospitalization/Major Diagno stic Procedure:? * Social History:?Tobacco Use:?Tobacco Control (Standard)?Tobacco use:?Nonsmoker.? * Medications:?TakingZyrTEC Al lergy 10 MG Tablet 1 tablet Orally at bedtime Ondansetron HCl 8 MG Tablet 1 tablet as needed Orally q6h prn nausea , Notes to Pharmacist: PRNIbuprofen Childrens 100 MG/5ML Suspension 20 ml with food or milk as needed Orally prn headache , Notes to Pharmacist: difficulty swallowing pillsAcetaminophen Extra Strength 500 MG Tablet 1 tablet as needed Orally every 6 hrs , Notes to Pharmacist: PRNFamotidine 40 MG Tablet 1 tablet Orally Twice a day , Notes to Pharmacist: PRNDepo-Provera 150 MG/ML Suspension 1 ml Intramuscular , Notes to Pharmacist: last depo 08/09/21Rizatriptan Benzoate 10 MG Tablet 1 tablet Oral prn at onset of migraine. May repeat once after 2 hrs if headache returns. , Notes to Pharmacist: PRNXolair 150 MG/ML Solution Prefilled Syringe 2 injections Subcutaneous once per month per building materials sales attendant EPINEPHrine (Anaphylaxis) 30 MG/30ML Solution as directed Injection As needed for anaphylaxis per allergistpredniSONE 20 MG Tablet standing order as directed Orally As needed per allergistPropranolol HCl 20 MG Tablet 1 tablet Orally Once a day at bedtime x1 week, then increase to twice a day and continue Nurtec 75 MG Tablet Disintegrating 1 tablet on the tongue and allow to dissolve Orally every other day Nortriptyline HCl 10 MG Capsule TAKE 2 CAPSULES BY MOUTH ONCE DAILY Oral Once a day Emgality 120 MG/ML Solution Auto-injector Inject 1 autoinjector Subcutaneous every 27-30 days Medication List reviewed and reconciled with the patientTaking ZyrTEC Allergy 10 MG Tablet 1 tablet Orally at bedtime Taking Ondansetron HCl 8 MG Tablet 1 tablet as needed Orally q6h prn nausea , Notes to Pharmacist: PRNTaking Ibuprofen Childrens 100 MG/5ML Suspension 20 ml with food or milk as needed Orally prn headache , Notes to Pharmacist: difficulty swallowing pillsTaking Acetaminophen Extra Strength 500 MG Tablet 1 tablet as needed Orally every 6 hrs , Notes to Pharmacist: PRNTaking Famotidine 40 MG Tablet 1 tablet Orally Twice a day , Notes to Pharmacist: PRNTaking Depo-Provera 150 MG/ML Suspension 1 ml Intramuscular , Notes to Pharmacist: last depo 08/09/21Taking Rizatriptan Benzoate 10 MG Tablet 1 tablet Oral prn at onset of migraine. May repeat once after 2 hrs if headache returns. , Notes to Pharmacist: PRNTaking Xolair 150 MG/ML Solution Prefilled Syringe 2 injections Subcutaneous once per month per building materials sales attendant Taking EPINEPHrine (Anaphylaxis) 30 MG/30ML Solution as directed Injection As needed for anaphylaxis per allergistTaking predniSONE 20 MG Tablet standing order as directed Orally As needed per allergistTaking Propranolol HCl 20 MG Tablet 1 tablet Orally Once a day at bedtime x1 week, then increase to twice a day and continue Taking Nurtec 75 MG Tablet Disintegrating 1 tablet on the tongue and allow to dissolve Orally every other day Taking Nortriptyline HCl 10 MG Capsule TAKE 2 CAPSULES BY MOUTH ONCE DAILY Oral Once a day Taking Emgality 120 MG/ML Solution Auto- injector Inject 1 autoinjector Subcutaneous every 27-30 days Medication List reviewed and reconciled with the patient * Allergies:?No Known Drug All ergyGlutenLactose (Intolerance)no[Allergies Verified] Objective: * Vitals:? * Examination: ???General Examination: ?General appearance:?alert, pleasant, well-nourished and in no acute distress, female, comfortable, cooperative.?Neurology: ?Cortical functions:?alert and oriented x 3, comprehension and language intact, speech clear and coherent.?Cranial nerves:?cranial nerve II-XII function is normal.?Motor strength:?no evidence of atrophy, wasting and/or spasticity of muscles, movements are normal.?Reflexes:?normal and 1-2+ and symmetrical.?Cerebellar signs:?finger to nose test is normal.?Tremors:?absent.?Gait and station:?within normal limits.?Speech:?speech clear and coherent.? Assessment: * Assessment: 1.?Migraine without aura, in tractable, without status migrainosus - G43.019 (Primary)???2.?Occipital neuralgia - M54.81???3.?Trigeminal neuralgia - G50.0???4.?Myalgia of auxiliary muscles, head and neck - M79.12??? Plan: * Treatment: * Procedures:?Trigeminal Block:?Consent?Informed consent obtained. The procedures are understood by the patient. The risks and benefits were discussed as explained on our consent form. All questions were answered to her satisfaction..?Treatment?In a sitting position , The area over the injection sites were prepped with alcohol utilizing sterile technique. Using a 30-gauge, 1/2 inch needle, I then injected the trigger point with approximately 4 mL of a solution containing equal parts?of 2% buvivacaine, 40mg/mL Depomedrol, and 30 mg/mL Ketorolac. Negative aspiration was performed.? Excellent hemostasis was maintained throughout. Post-injection precautions were reviewed with the patient., .?Injection sites?,Inject 0.5 mL Left Frontalis x 4 site ,Inject 0.5 mL Left Epicranial Eponeurosis x 2 sites ,?Inject 0.5 mL Left?parietal x 2 sites .?Occipital Nerve Block:?Consent?Informed consent obtained. The procedure risks, hazards and alternatives were discussed with the patient and proper consent was obtained. All questions were answered to the patients satisfaction. The procedures are understood by the patient..?Treatment?The skin was prepped in the usual sterile fashion. Using a 30-gauge, 1/2 inch needle.?Using a 30-gauge, 1/2 inch needle, I then injected the sites with approximately 4 mL of a solution containing equal parts of 0.25% Bupivacaine 2.5 mg/mL, Methyprednisilone 40mg/mL and Ketorolac 30 mg/mL Injected into the lesser and greater Occipital sites , Patient information:?.?Post Procedure?Following the procedure, the patient noted a substantial reduction in the pre-procedure pain. They have been instructed in post-procedure care.?Procedural Pause?Procedural pause conducted to verify: correct patient identity, procedure to be performed, correct side and site, correct patient position, and special requirements.? * Procedure Codes:?43730 NERVE BLOCK,GR OCCIPITAL [id number] Injection, anesthetic agent, Trigeminal [id number] Inj, bupivacaine, nos, 0.5mg, Units: 2.00 J1010 INJ METHYLPREDNISOLONE ACTAT 1MG, Units: 40.00 J1885 TORODOL IM , PER 15 MG * Follow Up:?1 month * Billing Information: * Visit Code:? 35443 OFFICE VISIT,EST PT,LEVEL 3. Modifiers: 25 * Procedure Codes:? 84911 NERVE BLOCK,GR OCCIPITAL NERVE. 50050 Injection, anesthetic agent, Trigeminal Nerve. J0665 Inj, bupivacaine, nos, 0.5mg. Units: 2.00. J1010 INJ METHYLPREDNISOLONE ACTAT 1MG. Units: 40.00. J1885 TORODOL IM , PER 15 MG. * Sign off status: Completed true * Provider:?Celestine Poole MD Date:?08/09 Generated for Elena hernández/Morgan/eTransmitting on:?12/14/2024 09:32 AM EDT History and Physical Notes * Examination Category Sub-Category Detail Notes Category Not es Neurology Cortical functions: alert and or iented x 3, comprehension and language intact, speech clear and coherent Cranial nerves: cranial nerve II-XII function is normal Motor strength: no evidence of atrop hy, wasting and/or spasticity of muscles, movements are normal Reflexes: normal and 1-2+ and symmetrical Cerebellar signs: finger to nose test is normal Tremors: absent Gait and station: within normal limits Speech: speech clear and coh erent General Examination General appearance: alert, p leasant, well-nourished and in no acute distress, female, comfortable, cooperative
--- OUTSIDE RECORDS SUMMARY | 2024-12-14 09:32 | XMS_ITS ---
Author Organization [facility] Address [address] [place] [address] Care Team Providers Care Head Of Store Operations Name Role Phone Nishi Thomson Primary Care Provider Celestine Sutherland Unavailable [phone] Brenda Odonnell Unavailable [phone] Allergies Allergen (clinical drug ingredient) Drug/Non Drug Allergy documented on EMR Reaction Allergy Type Onset Date Status Gluten Gluten Unknown Allergy Active lactose Lactose (Intolerance) Unknown Drug Allergy Active No Known Drug Allergy Unknown Drug Allergy Active REASON FOR VISIT Migraine follow up Medications Medication SIG (Take, Route, Frequency, Duration) Notes Start Date End Date Status Ibuprofen Childrens 100 MG/5ML 20 ml with food or milk as needed Orally prn headache difficulty swallowing pills Active Ondansetron HCl 8 MG 1 tablet as needed Orally q6h prn nausea for 30 day(s) PRN Active Acetaminophen Extra Strength 500 MG 1 tablet as needed Orally every 6 hrs PRN Active Depo-Provera 150 MG/ML 1 ml Intramuscular last depo 08/09/21 Active Famotidine 40 MG 1 tablet Orally Twice a day PRN Active ZyrTEC Allergy 10 MG 1 tablet Orally at bedtime Active Propranolol HCl 20 MG 1 tablet Orally On ce a day at bedtime x1 week, then increase to twice a day and continue for 30 days 07/15/2024 Active Nurtec 75 MG 1 tablet on the tongue and allow to dissolve Orally every other day for 30 days Active Nortriptyline HCl 10 MG TAKE 2 CAPSULES BY MOUTH ONCE DAILY Oral Once a day for 90 days Active Emgality 120 MG/ML Inject 1 autoinjector Subcutaneous every 27-30 days for 90 days Active predniSONE 20 MG standing order as directed Orally As needed per alterations expert 01/10/2023 Active EPINEPHrine (Anaphylaxis) 30 MG/30ML as directed Injection As needed for anaphylaxis per alterations expert 01/10/2023 Active Xolair 150 MG/ML 2 injections Subcutaneous once per month per alterations expert 12/27/2022 Active Rizatriptan Benzoate 10 MG 1 tablet Oral prn at onset of migraine. May repeat once after 2 hrs if headache returns. for 30 days PRN 06/27/2021 Active Social History Tobacco Use: Social History Observation Description Date Details (start date - stop date) Never Smoker NA - NA Sex Assigned At : Social History Observation Description Sex Assigned At Female Tobacco Control (Standard) Question Answer Notes Tobacco use: Nonsmoker Encounters Encounter Location Date Provider Diagnosis [facility] [address] [place] [address] 08/25/2024 Brenda Odonnell Migraine without aur a, intractable, without status migrainosus G43.019 ; Occipital neuralgia M54.81 ; Trigeminal neuralgia G50.0 and Myalgia of auxiliary muscles, head and neck M79.12 Assessments Encounter Date Diagnosis (ICD Code) Assessment Notes Treatment Notes Treatment Clinical Notes Section Notes 08/25/2024 Migraine without aura, intractable, without status migrainosus (ICD-10 - G43.019) Plan: -Continue above medications as prescribed. -Pt with tenderness to scalp and bilateral occipital nerves on exam causing radiating pain up over head into left eye. Pt pain pattern consistent with occipital neuralgia, will continue with occipital nerve block and trigger point injections. Plan: -Continue above medications as prescribed. -Pt with tenderness to scalp and bilateral occipital nerves on exam causing radiating pain up over head into left eye. Pt pain pattern consistent with occipital neuralgia, will plan for occipital nerve block and trigger point injections. -Reviewed visit today and prior notes in detail with Dr. Poole. Pt has been c/o left sided headaches for many years. Dr. Poole advises adding propranolol titrating up until improvement of migraines at night and HR lowers. HR is typically ranging from high 80s to low 100s. Will call pt to update her on Dr. Poole's recommendations. Continue current medications as prescribed. Follow up next available for nerve block and then in 4W or sooner as needed. Patient agrees with plan. All questions and concerns addressed. Patient instructed to maintain headache log. Patient advised to contact office for any change in headache pattern, increase in headache frequency, duration, or severity. Medication reconciliation completed. Previous office visit note reviewed. Patient presents for evaluation and management. Pt was seen and evaluated by Brenda GUZMAN under the direct supervision of Dr. Celestine Poole who was consulted after the visit. He agrees with the assessment and plan. Pt consents to treatment in office. 08/25/2024 Occipital neuralgia (ICD-10 - M54.81) Patient presents for evaluation and management. Pt was seen and evaluated by Brenad GUZMAN under the direct supervision of Dr. Celestine Poole who was consulted after the visit. He agrees with the assessment and plan. Pt consents to treatment in office. 08/25/2024 Trigeminal neuralgia (ICD-10 - G50.0) Patient presents for evaluation and management. Pt was seen and evaluated by Brenda GUZMAN under the direct supervision of Dr. Celestine Poole who was consulted after the visit. He agrees with the assessment and plan. Pt consents to treatment in office. 08/25/2024 Myalgia of auxiliary muscles, head and neck (ICD-10 - M79.12) Patient presents for evaluation and management. Pt was seen and evaluated by Brenda GUZMAN under the direct supervision of Dr. Celestine Poole who was consulted after the visit. He agrees with the assessment and plan. Pt consents to treatment in office. Plan Of Treatment Medication Medication Name Sig Start Date Stop Date Notes Nurtec 75 MG 1 tablet on the tong ue and allow to dissolve Orally every other day for 30 days Nortriptyline HCl 10 MG TAKE 2 CAPSULES BY MOUTH ONCE DAILY Oral Once a day for 90 days Emgality 120 MG/ML Inject 1 autoinjecto [...] occipital nerve block and trigger point injections. Plan: -Continue above medications as prescribed. -Pt with tenderness to scalp and bilateral occipital nerves on exam causing radiating pain up over head into left eye. Pt pain pattern consistent with occipital neuralgia, will plan for occipital nerve block and trigger point injections. -Reviewed visit today and prior notes in detail with Dr. Poole. Pt has been c/o left sided headaches for many years. Dr. Poole advises adding propranolol titrating up until improvement of migraines at night and HR lowers. HR is typically ranging from high 80s to low 100s. Will call pt to update her on Dr. Poole's recommendations. Continue current medications as prescribed. Follow up next available for nerve block and then in 4W or sooner as needed. Patient agrees with plan. All questions and concerns addressed. Patient instructed to maintain headache log. Patient advised to contact office for any change in headache pattern, increase in headache frequency, duration, or severity. Medication reconciliation completed. Previous office visit note reviewed. Progress Notes * Eric CANOOB: [birth year] (24 yo F)Acc No.[id number]:08/25/2024 Progress Notes Patient:?Dania CANO Provider:?Brenda Odonnell, MSN, AUTOMATIC EQUIPMENT TECHNICIAN, AGNP-C :2000???Age:24 Y???Sex:Female D ate:08/25/2024 Address:[address] [place], [place] [id number] Pcp:Nishi Flores Subjective: * Chief Complaints: * ???1. Migraine follow up. * HPI: ???Headache:? Katherine is a 24 [...] Blocks and the frequency of the treatment. ? 24-year-old female presenting for migraine follow up. Last visit 01/15/24. Patient reports a significant decrease in migraines since switching from nurtec for abortive to Nurtec every other day. She is taking rizatriptan less since switching to Nurtec every other day. She reports a lot of pain free days. She continues with Emgailty monthly. Patient uses Tylenol as first line rescue which provides improvement. Will use Rizatriptan if at home, but uses sparingly due to increased fatigue. Triggers for patient include school, increased stress, candy, and lack of sleep.? She also takes nortriptyline 10mg 2 caps at bedtime for migraines for many years. She added this to emgality which helped improve effects of injection. She tried topamax but had significant weight loss. Migraines started in 2020, she had headaches as a child all the time. She denies h/o head injury or infection.? She does not remember exact moment they started. She had an MRI in 01/2021 which was normal, has not had imaging since then.? Headaches are usually left sided and if they get severe will migraine to right side.? She gets sound sensitivity. Pain is mostly left forehead and into left eyebrow and left eye which is a new location for her pain, this started in 04/2024. She has??pressure in her left eye. Denies any blurry vision, double vision, floaters or aura. Denies numbness, tingling, weakness, confusion, brain fog. Pain is rarely in occipital area, she does have neck tension. Pain will wake her up at night, and can be severe. Headaches most of the time wake her up at night, 90% of headaches, she states rarely 10% she will get them during the day.? H/A sometimes improve as the day goes on. Denies needing to prop her head up on pillows. She has to put pressure on her head . Propping up her head worsenings dizziness and nausea, movement aggravates pain and sx. Headaches have been waking her up at night for last year and a half. Pt is not sure if bending forward makes it worse.? Patient reports that she sleeping fair, averages about 5 or 6?hours per night, gets warm at night and moves in bed. She has tried melatonin without relief. Has not tried CBD gummies.? Denies medication changes or side effects Denies headache symptoms today.? Journals: Feb: 4x1=4 Total = 4 Mar: 4x1=4 Total = 4 Apr: 6x1=6, 4x1=4, 3x1=3 Total = 13 January: 3x2=6 April: 2x2, 3x1=7 March 2x4, 3x1 = 11 Aux1 =4 Sep: 0 Oct: 7x1 trigger was sugar drank some soda = 7 07/10-07/14: 4x1. * ROS:?General / Constitutional:?Patient denies?change in appetite, chills, fatigue, fever, headache, lightheadedness, sleep disturbance, weakness.?Neurologic:?Patient denies?balance difficulty, confusion, difficulty speaking, dizziness, fainting, gait abnormality, headache, irritability, tingling / numbness, tremor.? * Medical History:?Migraines, Unknown anaphylactic allergy, Insomnia. * Surgical History:?lacrimal d ucts 04/1999, [place] teeth removed , Ingrown toenails , Mole removal 08/19/23. 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 * Family History:?Father: marta malcolm 52 yrs, diagnosed with Essential hypertension.?Mother: alive 50 yrs.?Maternal Grand Father: diagnosed with Other malignant neoplasm without specification of site.?2 brother(s) , 1 sister(s) - healthy. .? Father- HTN maternal grandmother- Lung and liver cancer maternal grandfather-Kidney and bone cancer Paternal grandfather- Diabetes, pace maker,. * Social History:?Tobacco Use:?Tobacco Control (Standard)?Tobacco use:?Nonsmoker.? * Medications:?Taking ZyrTEC A llergy 10 MG Tablet 1 tablet Orally at bedtime , Taking Ondansetron HCl 8 MG Tablet 1 tablet as needed Orally q6h prn nausea , Notes to Pharmacist: PRN, Taking Ibuprofen Childrens 100 MG/5ML Suspension 20 ml with food or milk as needed Orally prn headache , Notes to Pharmacist: difficulty swallowing pills, Taking Acetaminophen Extra Strength 500 MG Tablet 1 tablet as needed Orally every 6 hrs , Notes to Pharmacist: PRN, Taking Famotidine 40 MG Tablet 1 tablet Orally Twice a day , Notes to Pharmacist: PRN, Taking Depo-Provera 150 MG/ML Suspension 1 ml Intramuscular , Notes to Pharmacist: last depo 12/01/21, Taking Rizatriptan Benzoate 10 MG Tablet 1 tablet Oral prn at onset of migraine. May repeat once after 2 hrs if headache returns. , Notes to Pharmacist: PRN, Taking Xolair 150 MG/ML Solution Prefilled Syringe 2 injections Subcutaneous once per month per alterations expert , Taking EPINEPHrine (Anaphylaxis) 30 MG/30ML Solution as directed Injection As needed for anaphylaxis per alterations expert, Taking predniSONE 20 MG Tablet standing order as directed Orally As needed per alterations expert, Taking Propranolol HCl 20 MG Tablet 1 tablet Orally Once a day at bedtime x1 week, then increase to twice a day and continue , Taking Nurtec 75 MG Tablet Disintegrating 1 tablet on the tongue and allow to dissolve Orally every other day , Taking Nortriptyline HCl 10 MG Capsule TAKE 2 CAPSULES BY MOUTH ONCE DAILY Oral Once a day , Taking Emgality 120 MG/ML Solution Auto-injector Inject 1 autoinjector Subcutaneous every 27-30 days * Allergies:?No Known Drug All ergy, Gluten, Lactose (Intolerance). Objective: * Vitals:? * Examination: ???General Examination: ?General appearance:?alert, pleasant, well-nourished and in no acute distress, female, comfortable, cooperative.?Neurology: ?Cortical functions:?alert and oriented x 3, comprehension and language intact, speech clear and coherent.?Motor strength:?no evidence of atrophy, wasting and/or spasticity of muscles, movements are normal.?Tremors:?absent.?Gait and station:?within normal limits.?Speech:?speech clear and coherent.? Assessment: * Assessment: 1.?Migraine without aura, in tractable, without status migrainosus - G43.019 (Primary)???2.?Occipital neuralgia - M54.81???3.?Trigeminal neuralgia - G50.0???4.?Myalgia of auxiliary muscles, head and neck - M79.12??? Patient presents for evaluat ion and management. Pt was seen and evaluated by Brneda GUZMAN under the direct supervision of Dr. Celestine Poole who was consulted after the visit. He agrees with the assessment and plan. Pt consents to treatment in office. Plan: * Treatment: * Billing Information: * Visit Code:? * Procedure Codes:? * Electronic signature of Brenda Odonnell APRN on 12/14/2024 at 09:32 AM EDT Sign off status: Pending * Provider:?RADHA Pemberton, FOUZIA, AGNP-C Date:?08/25/2024 Generated for Elena hernández/Morgan/eTransmitting on:?12/14/2024 09:32 AM EDT History and Physical Notes * HPI (History of Present Illness) Category Sub-Category Detail Notes Category Not es Headache 24-year-old female presenting for migraine follow up. Last visit 01/15/24. Patient reports a significant decrease in migraines since switching from nurtec for abortive to Nurtec every other day. She is taking rizatriptan less since switching to Nurtec every other day. She reports a lot of pain free days. She continues with Emgailty monthly. Patient uses Tylenol as first line rescue which provides improvement. Will use Rizatriptan if at home, but uses sparingly due to increased fatigue. Triggers for patient include school, increased stress, candy, and lack of sleep. She also takes nortriptyline 10mg 2 caps at bedtime for migraines for many years. She added this to emgality which helped improve effects of injection. She tried topamax but had significant weight loss. Migraines started in 2020, she had headaches as a child all the time. She denies h/o head injury or infection. She does not remember exact moment they started. She had an MRI in 01/2021 which was normal, has not had imaging since then. Headaches are usually left sided and if they get severe will migraine to right side. She gets sound sensitivity. Pain is mostly left forehead and into left eyebrow and left eye which is a new location for her pain, this started in 04/2024. She has pressure in her left eye. Denies any blurry vision, double vision, floaters or aura. Denies numbness, tingling, weakness, confusion, brain fog. Pain is rarely in occipital area, she does have neck tension. Pain will wake her up at night, and can be severe. Headaches most of the time wake her up at night, 90% of headaches, she states rarely 10% she will get them during the day. H/A sometimes improve as the day goes on. Denies needing to prop her head up on pillows. She has to put pressure on her head . Propping up her head worsenings dizziness and nausea, movement aggravates pain and sx. Headaches have been waking her up at night for last year and a half. Pt is not sure if bending forward makes it worse. Patient reports that she sleeping fair, averages about 5 or 6 hours per night, gets warm at night and moves in bed. She has tried melatonin without relief. Has not tried CBD gummies. Denies medication changes or side effects Denies headache symptoms today. Journals: Oct: 4x1=4 Total = 4 Mar: 4x1=4 Total = 4 Apr: 6x1=6, 4x1=4, 3x1=3 Total = 13 May: 3x2=6 April: 2x2, 3x1=7 March 2x4, 3x1 = 11 Aux1 =4 Sep: 0 Oct: 7x1 trigger was sugar drank some soda = 7 07/10-07/14: 4x1 Examination Category Sub-Category Detail Notes Category Not es Neurology Cortical functions: alert and or iented x 3, comprehension and language intact, speech clear and coherent Motor strength: no evidence of atrop hy, wasting and/or spasticity of muscles, movements are normal Tremors: absent Gait and station: within normal limits Speech: speech clear and coh erent General Examination General appearance: alert, p leasant, well-nourished and in no acute distress, female, comfortable, cooperative
--- OUTSIDE RECORDS SUMMARY | 2024-12-14 09:33 | XMS_ITS | Clinical Summary ---
Author Organization [facility] it Address [address] [place] [address] Care Team Providers Care Botany Laboratory Assistant Name Role Phone Nishi Foster MD Primary Care Prov ider Allergies No known active allergies Medications galcanezumab-gnlm (Emgality Pen) 120 mg/mL injection pen 4 Active omalizumab (Xolair) 150 mg/mL syringe subcutaneous syringe 4 Active rimegepant (Nurtec) 75 mg dispersible tablet PUT 1 TAB ON TONGUE & ALLOW TO DISSOLVE AT ONSET OF MIGRAINE FOR 30 DAYS. LIMIT 1 DOSE IN 24 HOURS 4 Active EPINEPHrine (EpiPen) 0.3 mg/0.3 mL injection Inject into the muscle. Active nortriptyline (PAMELOR) 10 mg capsule Take 1 capsule (10 mg total) by mouth at bedtime. 1 Active rizatriptan (MAXALT) 10 mg tablet Take 1 tablet (10 mg total) by mouth if needed. 1 Active FAMOTIDINE ORAL Take 25 mg by mouth at bedtime. Active ondansetron (ZOFRAN) 8 mg tablet Take 1 tablet (8 mg total) by mouth if needed. Active medroxyPROGESTERo ne 150 mg/mL injection Inject 1 mL into the muscle Every 3 Months. 8 Active Active Problems Problem Noted Date Diagnosed Date Lactose intolerance 06/13/2021 Migraine without status migrainosus, not intract able 06/13/2021 Immunizations Name Administration Dates Next Due Influenza Quadravalent, MDCK , 0.5ml, preservative free (Flucelvax) 6mo and older 06/13/2021 Tdap Tetanus diptheria acell ular pertussis (Boostrix; Adacel) 7yo and older 08/25/2020 Surgical History Surgery Date Site/Laterality Comments WISDOM TOOTH EXTRACTION PROCEDURE: HISTORICAL WISDOM TEETH EXTRACTION OTHER SURGICAL HISTORY PROCEDURE: RI WEDGE EXCISION SKIN NAIL FOLD OTHER SURGICAL HISTORY PROCEDURE: RI UNLISTED PROCEDURE LACRIMAL SYSTEM Medical History Medical History Date Comments Migraine headache DX:Migraine he adache Lactose intolerance DX:Lactose i ntolerance Family History Medical History Relation Name Comments No Known Problems Brother 1 No Known Problems Brother 2 Other: DVT Father Other: Pulm emb Father negative wor kup Other: DVT Father's side Other: CA Unknown Maternal Grandmother No Known Problems Mother Dementia Paternal Grandmother Other: Kidney Disease Paternal Grandmother No Known Problems Sister 1 No Known Problems Sister 2 Breast cancer Neg Hx Colon cancer Neg Hx Ovarian cancer Neg Hx Relation Name Status Comments Brother 1 Alive Brother 2 Alive Father Father's side Maternal Grandfather Maternal Grandmother Mother Alive Paternal Grandfather Alive Paternal Grandmother Sister 1 Alive Sister 2 Alive Social History Tobacco Use Types Packs/Day Years Used Date Smoking Tobacco: Never Smokeless Tobacco: Never Alcohol Use Standard Drinks/Week Comments No 0 (1 standard drink = 0.6 oz pur e alcohol) Comments Unknown Sex and Gender Information Value Date Recorded Sex Assigned at Not on file Legal Sex Female 11:01 AM EST Gender Identity Not on file Sexual Orientation Not on file Obstetrics History Last Filed Vital Signs Vital Sign Reading Time Taken Comments Blood Pressure 110/62 06/19/2024 7:43 AM EDT Pulse 110 06/19/2024 7:43 AM EDT Temperature - - Respiratory Rate - - Oxygen Saturation - - Inhaled Oxygen Concentration - - Weight 64.9 kg (143 lb) 06/19/2024 7:43 AM EDT Height 162.6 cm (5' 4 ) 06/19/2024 7:43 AM EDT Body Mass Index 24.55 06/19/2024 7:43 AM EDT Plan of Treatment Upcoming Encounters Date Type Department Care Team (Late st Contact Info) Description 06/18/2025 3:00 PM EDT Office Visit Adult Medicine [address] [phone] Nishi Foster MD [address] [place] [id number] Health Maintenance Due Date Last Done Comments HPV Vaccines (1 - 3-dose series) 2013 Hepatitis B Vaccines (1 of 3 - 19+ 3-dose series) 2017 Depression Screening 08/18/2022 HIV Screening 08/18/2022 Hepatitis C Screening 08/18/2022 Social Influencers of Health Screening 08/18/2022 COVID-19 Vaccine (3 - 2023-2 5 season) 2024 10/04/2020, 09/13/2020 Influenza Vaccine (Season Ended) 2025 06/13/2021 Cervical Cancer Screening: P ap Smear 06/19/2026 06/19/2023 Cholesterol Screening (Lipid Panel) 06/19/2029 06/19/2024, 06/19/2024 DTaP,Tdap,and Td Vaccines (2 - Td or Tdap) 08/25/2030 08/25/2020 HIB Vaccines Aged Out No longer eligi ble based on patient's age to complete this topic Hepatitis A Vaccines Aged Out No long er eligible based on patient's age to complete this topic IPV Vaccines Aged Out No longer eligi ble based on patient's age to complete this topic MMR Vaccines Aged Out No longer eligi ble based on patient's age to complete this topic Meningococcal ACWY Vaccine Aged Out N o longer eligible based on patient's age to complete this topic Meningococcal B Vacine Aged Out No lo nger eligible based on patient's age to complete this topic Pneumococcal Vaccine: Pediatrics (0 to 5 Years) and At-Risk Patients (6 to 64 Years) Aged Out No longer eligible b ased on patient's age to complete this topic RSV Immunization Patients Under 20 months Aged Out No longer eligible b ased on patient's age to complete this topic Varicella Vaccines Aged Out No longer eligible based on patient's age to complete this topic Procedures Procedure Name Priority Date/Time Associated Diagnosis Comments LIPID PANEL Routine 06/19/2024 HM PAP SMEAR Routine 06/19/2023 from Last 3 Months or Most Recently Relevant to Health Maintenance Results * Lipid panel (06/19/2024) LDL/HDL Ratio 3 0 - 4 Triglycerides 108 0 - 150 mg/dL Cholesterol 162 0 - 200 mg/dL HDL 48 >=40 mg/dL LDL Cholesterol 93 0 - 100 mg/dL Blood Venous blood specimen / Unknown us Historical Provider LAB BLOOD ORDERABLES Amy l Result * Hm Pap Smear (06/19/2023) HM Pap smear Abstracted, No Interpretation us Historical Provider HEALTH MAINTENANCE Final Result from Last 3 Months or Most Recently Relevant to Health Maintenance [place] [place] [address] Care Teams Botany Laboratory Assistant Relationship Specialty Start Date End Date Nishi Foster MD PCP - General Internal Medicine 06/18/22
--- OUTSIDE RECORDS SUMMARY | 2024-12-14 09:33 | XMS_ITS | Patient Health Record ---
Author Organization [facility] Address [address] [place] [address] Care Team Providers Care Assembler Lay Ups Name Role Phone Nishi Thomson Primary Care Provider Celestine Sutherland Unavailable [phone] Jennifer Martinez Unavailable [phone] Brenda Odonnell Unavailable [phone] Allergies Allergen (clinical drug ingredient) Drug/Non Drug Allergy documented on EMR Reaction Allergy Type Onset Date Status Gluten Gluten Unknown Allergy Active lactose Lactose (Intolerance) Unknown Drug Allergy Active No Known Drug Allergy Unknown Drug Allergy Active Reason For Referral No Information Medications Medication SIG (Take, Route, Frequency, Duration) Notes Start Date End Date Status Nurtec 75 MG 1 tablet on the tongue and allow to dissolve Orally every other day for 30 days Active Acetaminophen Extra Strength 500 MG 1 tablet as needed Orally every 6 hrs PRN Active Depo-Provera 150 MG/ML 1 ml Intramuscular last depo 08/09/21 Active Famotidine 40 MG 1 tablet Orally Twice a day PRN Active Nortriptyline HCl 10 MG TAKE 2 CAPSULES BY MOUTH ONCE DAILY Oral Once a day for 90 days Active Xolair 150 MG/ML 2 injections Subcutaneous once per month per corporate travel counselor 12/27/2022 Active Emgality 120 MG/ML Inject 1 autoinjector Subcutaneous every 27-30 days for 90 days Active Rizatriptan Benzoate 10 MG 1 tablet Oral prn at onset of migraine. May repeat once after 2 hrs if headache returns. for 30 days PRN 06/27/2021 Active predniSONE 20 MG standing order as directed Orally As needed per corporate travel counselor 01/10/2023 Active EPINEPHrine (Anaphylaxis) 30 MG/30ML as directed Injection As needed for anaphylaxis per corporate travel counselor 01/10/2023 Active ZyrTEC Allergy 10 MG 1 tablet Orally at bedtime Active Propranolol HCl 20 MG 1 tablet Orally On ce a day at bedtime x1 week, then increase to twice a day and continue for 30 days 07/15/2024 Active Ibuprofen Childrens 100 MG/5ML 20 ml with food or milk as needed Orally prn headache difficulty swallowing pills Active Ondansetron HCl 8 MG 1 tablet as needed Orally q6h prn nausea for 30 day(s) PRN Active Social History Tobacco Use: Social History Observation Description Date Details (start date - stop date) Never Smoker NA - NA Sex Assigned At : Social History Observation Description Sex Assigned At Female Tobacco Control (Standard) Question Answer Notes Tobacco use: Nonsmoker Section Notes: Level of disability Work loss in last 3 months: 4 days missed, 6-10 days. Partial days missed, 6-10 days. Days of bedrest in last 1 month: Full bed rest 1-to days. Partial bedrest 1-2 days. 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 Partial days missed, 6-10 days. Days of bedrest in last 1 month: Full bed rest 1-to days. Partial bedrest 1-2 days. 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 Partial days missed, 6-10 days. Days of bedrest in last 1 month: Full bed rest 1-to days. Partial bedrest 1-2 days. Problems Problem Type SNOMED Code ICD Code Onset Dates Problem Status W/U Status Risk Notes Problem Migraine without aura, not refractory (077407146) Migraine without aura, not intractable, without status migrainosus (G43.009) Active confirmed Problem Refractory migraine without aura (155794050) Migraine without aura, intractable, without status migrainosus (G43.019) Active confirmed Problem Insomnia (460209227) Insomnia, unspecified (G47.00) Active confirmed Problem Trigeminal neuralgia (91212273) Trigeminal neuralgia (G50.0) Active confirmed Problem Occipital neuralgia (86018988) Occipital neuralgia (M54.81) Active confirmed Problem Myalgia of auxiliary muscles, 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 [address] [place] [phone] 07/14/2024 Brenda Plazasamy Migraine without aur a, intractable, without status migrainosus G43.019 and Occipital neuralgia M54.81 [facility] [address] [place] [phone] 01/15/2024 Jennifer [place] Migraine without aur a, intractable, without status migrainosus G43.019 [facility] [address] [place] [phone] 07/21/2024 Celestine Poole Migraine without aur a, intractable, without status migrainosus G43.019 ; Occipital neuralgia M54.81 and Myalgia of auxiliary muscles, head and neck M79.12 [facility] [address] [place] [phone] 08/20/2024 Celestine Baileyley Migraine without aur a, intractable, without status migrainosus G43.019 ; Occipital neuralgia M54.81 ; Trigeminal neuralgia G50.0 and Myalgia of auxiliary muscles, head and neck M79.12 [facility] [address] [place] [address] 03/19/2024 Celestine Poole Migraine without aur a, not intractable, without status migrainosus G43.009 [facility] [address] [place] [address] 07/14/2024 Celestine Poole [facility]. [address] [place] [address] 07/14/2024 Brenda Odonnell Assessments Encounter Date Diagnosis (ICD Code) Assessment Notes Treatment Notes Treatment Clinical Notes Section Notes 01/15/2024 Migraine without aura, intractable, without status migrainosus (ICD-10 - G43.019) Continue current medications as prescribed. Follow up in 6 months or sooner as needed. Patient agrees with plan. All questions and concerns addressed. Patient instructed to maintain headache log. Patient advised to contact office for any change in headache pattern, increase in headache frequency, duration, or severity. Medication reconciliation completed. Previous office visit note reviewed. 03/19/2024 Migraine without aura, not intractable, without status migrainosus (ICD-10 - G43.009) 07/14/2024 Migraine without aura, intractable, without status migrainosus [...] plan. Pt consents to treatment in office. 07/14/2024 Occipital neuralgia (ICD-10 - M54.81) Patient presents for evaluation and management. Pt was seen and evaluated by Brenda GUZMAN under the direct supervision of Dr. Celestine Poole who was consulted after the visit. He agrees with the assessment and plan. Pt consents to treatment in office. 07/21/2024 Migraine without aura, intractable, without status migrainosus [...] plan. Pt consents to treatment in office. 07/21/2024 Occipital neuralgia (ICD-10 - M54.81) Patient presents for evaluation and management. Pt was seen and evaluated by Brenda GUZMAN under the direct supervision of Dr. Celestine Poole who was consulted after the visit. He agrees with the assessment and plan. Pt consents to treatment in office. 08/20/2024 Migraine without aura, intractable, without status [...] M54.81) 08/20/2024 Trigeminal neuralgia (ICD-10 - G50.0) 07/21/2024 Myalgia of auxiliary muscles, head and neck (ICD-10 - M79.12) Patient presents for evaluation and management. Pt was seen and evaluated by Brenda GUZMAN under the direct supervision of Dr. Celestine Poole who was consulted after the visit. He agrees with the assessment and plan. Pt consents to treatment in office. 08/20/2024 Myalgia of auxiliary muscles, head and neck (ICD-10 - M79.12) 08/25/2024 Patient presents for evaluation and management. Pt was seen and evaluated by Brenda GUZMAN under the direct supervision of Dr. Celestine Poole who was consulted after the visit. He agrees with the assessment and plan. Pt consents to treatment in office. Plan Of Treatment No Information Insurance Providers Payer Name Payer Address Payer Phone Subscriber Number Group Number Insured Name Patient Relationship to Insured Coverage Start Date Coverage End Date [facility] [address] [place] DE GUZMAN [id number] Dania Ferreira Self - patient is the insured Medical (General) History Medical History History ICD Code Migraines Unknown anaphylactic allergy Insomnia Surgical History Surgery Date(Month/Year) lacrimal ducts 04/1999 Hunter teeth removed Ingrown toenails Mole removal 08/19/23 Hospitalization History Reason Date(Month/Year) anaphylactic reaction 06/2022
--- OUTSIDE RECORDS SUMMARY | 2024-12-14 09:33 | XMS_ITS ---
Author Organization [facility] Address [address] [place] [address] Care Team Providers Care Coagulation Operator Name Role Phone Nishi Thomson Primary Care Provider Celestine Sutherland Unavailable [phone] Allergies Allergen (clinical drug ingredient) Drug/Non Drug Allergy documented on EMR Reaction Allergy Type Onset Date Status Gluten Gluten Unknown Allergy Active lactose Lactose (Intolerance) Unknown Drug Allergy Active No Known Drug Allergy Unknown Drug Allergy Active REASON FOR VISIT migraine Medications Medication SIG (Take, Route, Frequency, Duration) Notes Start Date End Date Status Xolair 150 MG/ML 2 injections Subcutaneous once per month per oncology nurse 12/27/2022 Active EPINEPHrine (Anaphylaxis) 30 MG/30ML as directed Injection As needed for anaphylaxis per oncology nurse 01/10/2023 Active predniSONE 20 MG standing order as directed Orally As needed per oncology nurse 01/10/2023 Active Nortriptyline HCl 10 MG TAKE 2 CAPSULES BY MOUTH ONCE DAILY Oral Once a day for 90 days Active Emgality 120 MG/ML Inject 1 autoinjector Subcutaneous every 27-30 days for 90 days Active Depo-Provera 150 MG/ML 1 ml Intramuscular last depo 08/09/21 Active Rizatriptan Benzoate 10 MG 1 tablet Oral prn at onset of migraine. May repeat once after 2 hrs if headache returns. for 30 days PRN 06/27/2021 Active Nurtec 75 MG 1 tablet on the tongue and allow to dissolve Orally every other day for 30 days Active Acetaminophen Extra Strength 500 MG 1 tablet as needed Orally every 6 hrs PRN Active Famotidine 40 MG 1 tablet Orally Twice a day PRN Active Ondansetron HCl 8 MG 1 tablet as needed Orally q6h prn nausea for 30 day(s) PRN Active Ibuprofen Childrens 100 MG/5ML 20 ml with food or milk as needed Orally prn headache difficulty swallowing pills Active Propranolol HCl 20 MG 1 tablet Orally On ce a day at bedtime x1 week, then increase to twice a day and continue for 30 days 07/15/2024 Active ZyrTEC Allergy 10 MG 1 tablet Orally at bedtime Active Social History Tobacco Use: Social History Observation Description Date Details (start date - stop date) Never Smoker NA - NA Sex Assigned At : Social History Observation Description Sex Assigned At Female Tobacco Control (Standard) Question Answer Notes Tobacco use: Nonsmoker Vital Signs Blood pressure systolic 120 mm Hg 07/21/20 24 Blood pressure diastolic 89 mm Hg 024 Heart Rate 97 /min 07/21/2024 Height 64 in 07/21/2024 Weight 136.4 lbs 07/21/2024 BMI 23.41 kg/m2 07/21/2024 Weight-kg 61.87 kg 07/21/2024 Encounters Encounter Location Date Provider [facility] [address] [place] [phone] 07/21/2024 Celestine Poole Migraine without aur a, intractable, without status migrainosus G43.019 ; Occipital neuralgia M54.81 and Myalgia of auxiliary muscles, head and neck M79.12 Assessments Encounter Date Diagnosis (ICD Code) Assessment Notes Treatment Notes Treatment Clinical Notes Section Notes 07/21/2024 Migraine without aura, intractable, without status [...] Pt consents to treatment in office. 07/21/2024 Myalgia of auxiliary muscles, head and [...] Subcutaneous every 27-30 days for 90 days Nurtec 75 MG 1 tablet on the tong ue and allow to dissolve Orally every other day for 30 days Treatment Notes Assessment Notes Migraine without [...] reconciliation completed. Previous office visit note reviewed. Next Appt Details Follow Up: 1 month, Reason: Procedure Notes * Category Sub-Category Detail Notes Trigger Point Injection Procedure: After e risks and benefits of the procedure were discussed with the patient and consent to treat was obtained., The skin was prepped in the usual sterile fashion. Using a 30-gauge, 1/2 inch needle, I then injected the trigger point with approximately 4 mL of a solution containing equal parts of 0.25% Bupivacaine 2.5 mg/mL, Methyprednisilone 40mg/mL. The needle was removed.Occipital trigger point injection, x 4Parietal trigger point injections, x 3Temporalis trigger poit injections, x 3Medication used:, 0.25% Bupivacaine 2.5 mg/mL,,, Methylprednisolone 40mg/mL, Patient information: Trigger point injections can help relieve pain so you can start to function. A combination of a local anesthetic and steroid compound can provide maximum relief and aid healing.How often: Most physicians recommend one injection every eight weeks for six months. We perfer every four to five weeks for migraine/headache., Progress Notes * Eric CANOOB: [birth year] (24 yo F)Acc No.[id number]:07/21/2024 Patient:?Dania CANO Provider:?Celestine Poole MD?Resourc e:Sarita Braxton :2000???Age:24 Y???Sex:Female D ate:07/21/2024 Address:[address] [place] [address], [facility] [place], [id number] Pcp:Nishi Flores Subjective: * Chief Complaints: * ???Migraine * HPI: ???Headache:? Katherine is a 24 year old female here today for trigger point injections- nerve blocks. She was referred to me from Brenda. She reports level 2/10 headache and stated her headache are in [...] 2 injections Subcutaneous once per month per oncology nurse EPINEPHrine (Anaphylaxis) 30 MG/30ML Solution as directed Injection As needed for anaphylaxis per allergistpredniSONE 20 MG Tablet standing order as directed Orally As needed per allergistNurtec 75 MG Tablet Disintegrating 1 tablet on the tongue and allow to dissolve Orally every other day , stop date 01/10/2025Nortriptyline HCl 10 MG Capsule TAKE 2 CAPSULES BY MOUTH ONCE DAILY Oral Once a day Emgality 120 MG/ML Solution Auto-injector Inject 1 autoinjector Subcutaneous every 27-30 days , stop date 07/09/2025Propranolol HCl 20 MG Tablet 1 tablet Orally Once a day at bedtime x1 week, then increase to twice a day and continue Medication List reviewed and reconciled with the [...] 2 injections Subcutaneous once per month per oncology nurse Taking EPINEPHrine (Anaphylaxis) 30 MG/30ML Solution as directed Injection As needed for anaphylaxis per allergistTaking predniSONE 20 MG Tablet standing order as directed Orally As needed per allergistTaking Nurtec 75 MG Tablet Disintegrating 1 tablet on the tongue and allow to dissolve Orally every other day , stop date 01/10/2025Taking Nortriptyline HCl 10 MG Capsule TAKE 2 CAPSULES BY MOUTH ONCE DAILY Oral Once a day Taking Emgality 120 MG/ML Solution Auto- injector Inject 1 autoinjector Subcutaneous every 27-30 days , stop date 07/09/2025Taking Propranolol HCl 20 MG Tablet 1 tablet Orally Once a day at bedtime x1 week, then increase to twice a day and continue Medication List reviewed and reconciled with the patient * Allergies:?No Known Drug All ergyGlutenLactose (Intolerance)no[Allergies Verified] Objective: * Vitals:?BP:120/89mm Hg, HR:9 7/min, Wt:136.4lbs, Wt-k.87 kg, Ht: 64 in, BMI:23.41Index, Body Surface Area: 1.67. * Examination: ???General Examination: ?General appearance:?alert, pleasant, [...] status migrainosus - G43.019 (Primary)???2.?Occipital neuralgia - M54.81???3.?Myalgia of auxiliary muscles, head and neck - M79.12??? Patient presents for evaluat ion and management. Pt was seen and evaluated by Brenda GUZMAN under the direct supervision of Dr. Celestine oPole who was consulted after the visit. He agrees with the assessment and plan. Pt consents to treatment in office. Plan: * Treatment: * Procedures:?Trigger Point Injection:?Procedure:?After the risks and benefits of the procedure were discussed with the patient and consent to treat was obtained. , The skin was prepped in the usual sterile fashion. Using a 30-gauge, 1/2 inch needle, I then injected the trigger point with approximately 4 mL of a solution containing equal parts of 0.25% Bupivacaine 2.5 mg/mL, Methyprednisilone 40mg/mL. The needle was removed. Occipital trigger point injection, x 4 Parietal trigger point injections, x 3 Temporalis trigger poit injections, x 3 Medication used:, 0.25% Bupivacaine 2.5 mg/mL,,, Methylprednisolone 40mg/mL , Patient information: Trigger point injections can help relieve pain so you can start to function. A combination of a local anesthetic and steroid compound can provide maximum relief and aid healing. How often: Most physicians recommend one injection every eight weeks for six months. We perfer every four to five weeks for migraine/headache., .? * Procedure Codes:?30498 RICHAR ER POINT,3 OR MORE [id number] Inj, bupivacaine, nos, 0.5ydW3929 INJ METHYLPREDNISOLONE ACTAT 1MG, Units: 40.00 * Follow Up:?1 month * Billing Information: * Visit Code:? 34485 OFFICE VISIT,EST PT,LEVEL 3. Modifiers: 25 * Procedure Codes:? 74982 TRIGGER POINT,3 OR MORE MUSCLE. J0665 Inj, bupivacaine, nos, 0.5mg. J1010 INJ METHYLPREDNISOLONE ACTAT 1MG. Units: 40.00. * Sign off status: Completed true * Provider:?Celestine Poole MD Date:?07/10 Generated for Elena hernández/Morgan/eTransmitting on:?12/14/2024 09:32 AM [...]
== END 2024-12-14 09:25 | disposition home or self-care (01) ==
LOC: HO.HWS 08:49
PROVIDERS: PCP Physician Assistant; Visit Provider Advanced Practice Midwife
DX: Z30.9 Encounter for contraceptive management, unspecified (principal)

== ENCOUNTER → 2024-12-14 08:49 | Outpatient (BNVA) | payer BC, SELFPAY | PROVIDERS: PCP Physician Assistant; Visit Provider Advanced Practice Midwife | DX: Z30.9 Encounter for contraceptive management, unspecified (principal) | CPT/HCPCS: 96372; 99211; J1050 ==

== ENCOUNTER 2025-03-11 08:58 | Outpatient (AMB) | payer BC, SELFPAY ==
--- OUTSIDE RECORDS SUMMARY | 2025-03-11 09:09 | XMS_ITS | Patient Health Record ---
Author Organization [facility] [place] Address [address] [place] [address] Care Team Providers Care Butcher Supervisor Name Role Phone Coral Lawrence MD Primary Care Provider Hiral Treviño Unavailable [phone] Reason For Referral No Information Medications Medication SIG (Take, Route, Frequency, Duration) Notes Start Date End Date Status Keflex 500 MG 1 capsule Orally abiola ry 12 hrs; Duration: 07 days 09/17/2017 Not-Taking Night Splint AFO - L1930 as directed 03/05/2017 Not-Taking Cephalexin 250 MG/5ML 10 ml Orally every 12 hrs; Duration: 07 days 02/05/2017 Not-Takin g Social History Tobacco Use: Social History Observation Description Date Details (start date - stop date) Never Smoker NA - NA Tobacco Use/Smoking Question Answer Notes Are you a: nonsmoker Additional Findings: Tobacco Non-User Current no n-smoker Alcohol Screen Question Answer Notes Did you have a drink containing alcohol in the p ast year? No Points 0 Interpretation Negative Tobacco use other than smoking: Question Answer Notes Are you an other tobacco user? No Problems Problem Type SNOMED Code ICD Code Onset Dates Problem Status W/U Status Risk Notes Problem Equinus contracture of right ankle (M24.571) Active confirmed Plan Of Treatment Pending Test Test Name Order Date X ray : Foot, right 3V 02/05/2017 88930-Bozbtjmh Plate 07/20/2015 36968-Ymqsrxld Plate 08/03/2015 28807-Znzazhla Plate 11/19/2016 34020-YMG 02/05/2017 91431-DHW 09/17/2017 24923- Debride <25 sq cm 10/02/2017 32838- Debride <25 sq cm 02/19/2017 Insurance Providers Payer Name Payer Address Payer Phone Subscriber Number Group Number Insured Name Patient Relationship to Insured Coverage Start Date [facility]age End Date [facility] [address] [place] [id number] Dania Ferreira Self - patient is the insured Medical (General) History Medical History History ICD Code Chicken pox Warts Surgical History Surgery Date(Month/Year) eye surgery, tear ducs Ingrown Toe Nail NICHOLAS great toes 09/17/17
--- OUTSIDE RECORDS SUMMARY | 2025-03-11 09:09 | XMS_ITS | Encounter Summary ---
Author Organization [facility] Address [address] [place] [address] Care Team Providers Care Load Dispatcher Local Name Role Phone Karen Sorto MD Primary Care Provider Nishi Adams MD Primary Care Prov ider Encounter Details Date Type Department Care Team Description 06/19/2021 Release of Information Medical Records [address] [place] [id number] Abstract, Provider Social History Tobacco Use Types Packs/Day Years Used Date Smoking Tobacco: Never Smokeless Tobacco: Never Alcohol Use Standard Drinks/Week Comments No 0 (1 standard drink = 0.6 oz pur e alcohol) Sex Assigned at Date Recorded Female 06/18/2022 9:50 AM E DT COVID-19 Exposure Response Date Recorded In the last month, have you been in contact with someone who was confirmed or suspected to have Coronavirus / COVID-19? No / Unsure 06/13/2021 1:59 PM EDT documented as of this encounter Plan of Treatment Not on file documented as of this encounter Visit Diagnoses Not on filedocumented in this encounter Care Teams Load Dispatcher Local Relationship Specialty Start Date End Date Karen Sorto MD PCP - General Internal Medicine 06/12/21 06/17/22 Nishi Thomson MD [address] [place] [id number] PCP - General Internal Medicine 06/18/22 documented as of this encounter
--- OUTSIDE RECORDS SUMMARY | 2025-03-11 09:09 | XMS_ITS | Clinical Summary ---
Author Organization [address] Address [address] [place] [phone] Phone Care Team Providers Care Telemarketer Name Role Phone Nishi Foster MD Primary [...] without status migrainosus, not intract able 06/13/2021 Encounters Date Type Department Care Team Description 01/13/2025 Telephone Adult Medicine [address], [place] [phone] Nishi Foster MD Referral (Neurology ) 01/11/2025 Telephone Adult Medicine [address] [phone] Nishi Foster MD Referral from Last 3 Months Immunizations Name Administration Dates Next Due Influenza Quadravalent, MDCK , 0.5ml, preservative free (Flucelvax) 6mo and older 06/13/2021 Tdap Tetanus diptheria acell ular pertussis (Boostrix; Adacel) 7yo and older 08/25/2020 Surgical History Surgery Date Site/Laterality Comments WISDOM TOOTH EXTRACTION PROCEDURE: HISTORICAL WISDOM TEETH EXTRACTION OTHER SURGICAL HISTORY PROCEDURE: DE WEDGE EXCISION SKIN NAIL FOLD OTHER SURGICAL HISTORY PROCEDURE: DE UNLISTED PROCEDURE LACRIMAL SYSTEM Medical History Medical [...] 3:00 PM EDT Office Visit Adult Medicine [facility] [address] [place] [address] Nishi Foster MD [address] [place] [address] Health Maintenance Due Date Last Done Comments Hepatitis B Vaccines (1 of 3 - [...] on patient's age to complete this topic HPV Vaccines Aged Out No longer eligi ble [...] age to complete this topic Meningococcal B Vaccine Aged Out No l onger eligible based on patient's age to complete [...] mg/dL Blood Venous blood specimen / Unknown Historical Provider LAB BLOOD ORDERABLES Amy l Result * Pap Smear (06/19/2023) Pap smear Abstracted, No Interpretation us Historical Provider HEALTH MAINTENANCE Final Result from Last 3 Months or Most Recently Relevant to Health Maintenance Insurance [facility] Care Teams Telemarketer Relationship Specialty Start Date End Date Nishi Foster MD PCP - General Internal Medicine 06/18/22
--- OUTSIDE RECORDS SUMMARY | 2025-03-11 09:09 | XMS_ITS | Patient Health Record ---
Author Organization [facility] Address [address] [place] [address] Care Team Providers Care First Aid Nurse Name Role Phone Nishi Thomson Primary Care Provider Celestine Sutherland Unavailable [phone] Brenda Odonnell Unavailable [phone] Allergies Allergen (clinical drug ingredient) Drug/Non Drug Allergy documented on EMR Reaction Allergy Type Onset Date Status Gluten Gluten Unknown Allergy Active lactose Lactose (Intolerance) Unknown Drug Allergy Active No Known Drug Allergy Unknown Drug Allergy Active Reason For Referral Reason OFFICE VISIT Diagnosis 1 Migraine without aur a, not intractable, without status migrainosus (G43.009) Referred Organization [facility]. Referred Provider Celestine Poole Referred Address [address] [place] [phone], Referred Provider Specialty Neurology Referral Priority Routine Medications Medication SIG (Take, Route, Frequency, Duration) Notes Start Date End Date Status Ondansetron 8 MG 1 tablet on the tongue and allow to dissolve as needed Orally Once a day for nausea for 30 days Active Promethazine HCl 25 MG 1 tablet as needed Orally every 6 hours for 30 days Monitor for drowsiness. OK to take with ondansetron as needed Active Famotidine 40 MG 1 tablet Orally Twice a day PRN Active Depo-Provera 150 MG/ML 1 ml Intramuscular Active Xolair 150 MG/ML 2 injections Subcutaneous once per month per hog scalder 12/27/2022 Active acetaZOLAMIDE 125 MG As directed Orally 1 tablet in AM and 2 tablets at bedtime for 90 days Active EPINEPHrine (Anaphylaxis) 30 MG/30ML as directed Injection As needed for anaphylaxis per hog scalder 01/10/2023 Active Nortriptyline HCl 10 MG 3 capsules Oral Once a day at bedtime for 90 days Active predniSONE 20 MG As directed, every morning with food. Orally 3 tabs for 4 days, 2 tabs for 4 days, 1 tab for 4 days, 1/2 tab for 4 days. for 30 days Not-Taking predniSONE 20 MG standing order as directed Orally As needed per hog scalder 01/10/2023 Not-Taking Ajovy 225 MG/1.5ML Inject 1 autoinjector Subcutaneous q27-30 days for 30 days 02/18/2025 Active Rizatriptan Benzoate 10 MG 1/2 to 1 tablet along with 2 tabs ibuprofen Oral as needed at onset of migraine. May repeat once after 2 hrs if headache returns. for 30 days PRN 06/27/2021 Not-Taking ZyrTEC Allergy 10 MG 1 tablet Orally at bedtime Active Ondansetron HCl 8 MG 1 tablet as needed Orally q6h prn nausea for 30 day(s) PRN Not-Taking Ibuprofen Childrens 100 MG/5ML 20 ml with food or milk as needed Orally prn headache difficulty swallowing pills Active Nurtec 75 MG 1 tablet on the tongue and allow to dissolve Orally every other day for 30 days May take up to 18 tabs per month Active Acetaminophen Extra Strength 500 MG 1 tablet as needed Orally every 6 hrs PRN Active Social History Tobacco Use: Social [...] Partial bedrest 1-2 days. Works at an [employer], in school, studying accounting no smoking Level of disability Work loss in last 3 months: 4 days missed, 6-10 days. Partial days missed, 6-10 days. Days of bedrest in last 1 month: Full bed rest 1-to days. Partial bedrest 1-2 days. Works at an [employer], in school, studying accounting no smoking Level of disability Work loss in last 3 months: 1 day missed Days of bedrest in last 3 months: Full bed rest 1 day. Works at an [employer], in school, studying accounting no smoking Level of disability Work loss in last 3 months: 1 day missed Days of bedrest in last 3 months: Full bed rest 1 day. 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 Works at an [employer], in school, studying accounting no smoking Level of disability Work loss in last 3 months: 1 day missed Days of bedrest in last 3 months: Full bed rest 1 day. Works at an [employer], in school, studying accounting no smoking Lives with her parents and y ounger siblings Level of disability Work loss in last 3 months: 4 days missed, 6-10 days. Partial days missed, 6-10 days. Days of bedrest in last 1 month: Full bed rest 1-to days. Partial bedrest 1-2 days. 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, Problems Problem Type SNOMED Code ICD Code Onset Dates Problem Status W/U Status Risk Notes Problem Migraine without aura, not refractory (388062925) Migraine without aura, not intractable, without status migrainosus (G43.009) Active confirmed Problem Refractory migraine without aura (083511782) Migraine without aura, intractable, without status migrainosus (G43.019) Active confirmed Problem Chronic intractable migraine without aura (729375799513863) Chronic migraine without aura, intractable, without status migrainosus (G43.719) Active confirmed Problem Insomnia (371182782) Insomnia, unspecified (G47.00) Active confirmed Problem Trigeminal neuralgia (60572063) Trigeminal neuralgia (G50.0) Active confirmed Problem Occipital neuralgia (80042830) Occipital neuralgia (M54.81) Active confirmed Problem Screening for cardiovascular system disease (832419255) Encounter for screening for cardiovascular disorders (Z13.6) Active confirmed Problem Myalgia of auxiliary muscles, 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 [address] [place] [address] 12/29/2024 Celestine Poole Occipital neuralgia M54.81 ; Trigeminal neuralgia G50.0 ; Myalgia of auxiliary muscles, head and neck M79.12 and Chronic migraine without aura, intractable, without status migrainosus G43.719 [facility] [address] [place] [phone] 07/21/2024 Celestine Poole Migraine without aur a, intractable, without status migrainosus G43.019 ; Occipital neuralgia M54.81 and Myalgia of auxiliary muscles, head and neck M79.12 [facility] [address] [place] [phone] 08/20/2024 Celestine Poole Migraine without aur a, intractable, without status migrainosus G43.019 ; Occipital neuralgia M54.81 ; Trigeminal neuralgia G50.0 and Myalgia of auxiliary muscles, head and neck M79.12 [facility] [address] [place] [address] 01/11/2025 Brenda Jaegle Occipital neuralgia M54.81 ; Chronic migraine without aura, intractable, without status migrainosus G43.719 ; Trigeminal neuralgia G50.0 and Myalgia of auxiliary muscles, head and neck M79.12 [facility] [address] [place] [address] 01/21/2025 Brenda Jaegle Occipital neuralgia M54.81 ; Chronic migraine without aura, intractable, without status migrainosus G43.719 ; Trigeminal neuralgia G50.0 and Myalgia of auxiliary muscles, head and neck M79.12 [facility] [address] [place] [address] 01/26/2025 Brenda Jaegle Occipital neuralgia M54.81 ; Chronic migraine without aura, intractable, without status migrainosus G43.719 ; Trigeminal neuralgia G50.0 ; Myalgia of auxiliary muscles, head and neck M79.12 and Encounter for screening for cardiovascular disorders Z13.6 [facility] [address] [place] [address] 02/04/2025 Brenda Jaegle Occipital neuralgia M54.81 ; Chronic migraine without aura, intractable, without status migrainosus G43.719 ; Trigeminal neuralgia G50.0 ; Myalgia of auxiliary muscles, head and neck M79.12 and Syncope and collapse R55 [facility] [address] [place] [address] 02/18/2025 Brenda Jaegle Occipital neuralgia M54.81 ; Chronic migraine without aura, intractable, without status migrainosus G43.719 ; Trigeminal neuralgia G50.0 ; Myalgia of auxiliary muscles, head and neck M79.12 and Syncope and collapse R55 [facility] [address] [place] [address] 03/19/2024 Celestine Poole Migraine without aur a, not intractable, without status migrainosus G43.009 [facility] [address] [place] [address] 07/14/2024 Celestine Poole [facility] [address] [place] [address] 07/14/2024 Brenda Odonnell [facility] [address] [place] [address] 01/19/2025 Celestine Poole [facility] [address] [place] [address] 01/20/2025 Celestine Poole [facility] [address] [place] [address] 02/03/2025 Celestine Poole [facility] [address] [place] [address] 02/10/2025 Celestine Poole [facility] [address] [place] [address] 02/10/2025 Celestine Poole [facility] [address] [place] [address] 02/18/2025 Celestine Poole [facility] [address] [place] [address] 02/18/2025 Celestine Poole [facility] [address] [place] [address] 03/04/2025 Celestine Poole Assessments Encounter Date Diagnosis (ICD Code) Assessment Notes Treatment Notes Treatment Clinical Notes Section Notes 03/19/2024 Migraine without aura, not intractable, without [...] injections. 08/20/2024 Occipital neuralgia (ICD-10 - M54.81) 12/29/2024 Trigeminal neuralgia (ICD-10 - G50.0) Patient presents for evaluation and management. Pt was seen and evaluated by Brenda GUZMAN under the direct supervision of Dr. Celestine Poole who was consulted after the visit. He agrees with the assessment and plan. Pt consents to treatment in office. 12/29/2024 Occipital neuralgia (ICD-10 - M54.81) Patient presents for evaluation and management. Pt was seen and evaluated by Brenda GUZMAN under the direct supervision of Dr. Celestine Poole who was consulted after the visit. He agrees with the assessment and plan. Pt consents to treatment in office. 01/11/2025 Chronic migraine without aura, intractable, without status migrainosus (ICD-10 - G43.719) Pt with poorly controlled migraines over the past 6 months. She is getting some temporary relief from nerve blocks. Pt does not recall her last headache free day. Will send in prednisone taper 8 day as pt responded to this in the past. Pt will call office if she would like to extend taper. -Prednisone taper 8 day -Continue Emgality monthly -Continue Nurtec every other day, advised to take additional 2 tabs per month as abortive, samples given. NTE 1 tab in 24h. -Continue Rizatriptan for now. Advised taking 1/2 tab with 2 tabs Ibuprofen during day time to reduce side effects. -Zavzpret sample given in office with some immediate relief, pt will call for prescription if needed -Continue with Nerve block PRN -Start ondansetron dissolvable tabs due to vomiting. F/U: 2W telehealth. Patient agrees with plan. All questions and concerns addressed. Patient instructed to maintain headache logs. Patient advised to contact office for any change in headache pattern, increase in frequency, duration, or severity of headaches. Medication reconciliation completed. Previous office visit note reviewed. Patient presents for evaluation and management. Pt was seen and evaluated by Brenda GUZMAN under the supervision of Dr. Celestine Poole who was in the office at the time of the visit and available for consultation as needed. Pt consents to treatment in office. 01/11/2025 Occipital neuralgia (ICD-10 - M54.81) Patient presents for evaluation and management. Pt was seen and evaluated by Brenda GUZMAN under the supervision of Dr. Celestine Poole who was in the office at the time of the visit and available for consultation as needed. Pt consents to treatment in office. 01/21/2025 Occipital neuralgia (ICD-10 - M54.81) Patient presents for evaluation and management. Pt was seen and evaluated by Brenda GUZMAN under the direct supervision of Dr. Celestine Poole who was consulted after the visit. He agrees with the assessment and plan. Pt consents to treatment via telehealth. 01/26/2025 Occipital neuralgia (ICD-10 - M54.81) Patient presents for evaluation and management. Pt was seen and evaluated by Brenda GUZMAN under the direct supervision of Dr. Celestine Poole who was consulted after the visit and agrees with treatment plan. Sarita Braxton RN performed nerve block procedures. 02/04/2025 Occipital neuralgia (ICD-10 - M54.81) Patient presents for evaluation and management. Pt was seen and evaluated by Brenda GUZMAN under the direct supervision of Dr. Poole who was consulted after the visit and agrees with the plan. Pt consents to virtual visit. 02/18/2025 Occipital neuralgia (ICD-10 - M54.81) Patient presents for evaluation and management. Pt was seen and evaluated by Brenda GUZMAN under the direct supervision of Dr. Poole who was consulted after the visit and agrees with the plan. Pt consents to virtual visit. 02/18/2025 Chronic migraine without aura, intractable, without status migrainosus (ICD-10 - G43.719) Pt with worsening pain over the past 2 weeks, she did have slight improvement in severity with increase in acetazolamide to 125mg BID; however, pain is still debilitating. She is not able to work due to severe pain, needing to lie down for at least half the day. She is not able to look at her phone for more than a few minutes due to screens triggering a migraine. -Pt would benefit from changing from Emgality to Ajovy as Emgality is no longer providing any improvement in migraines. Will send in Rx, educated on use. -Pt will also retrial slow titration upward of acetazolamide given that she is not experiencing any side effects at current dose. She will increase to 1 tab in AM and 2 tabs at bedtime -Continue Nortriptyline 30mg, cannot titrate up due to side effects. Would not taper off due to insomnia. Advised pt contact her PCP regarding management of insomnia as this can be a trigger for migraines. -Pt will email our office [place] paperwork. -MRI and MRV scheduled 02/27/25. Given that pt has had a change in severity and in headache pattern will obtain an MRI of brain w/wo contrast. Additionally, pt has a family history of DVT and PE in her father and 2 paternal uncles. Will order MRV to r/o thrombosis as cause of pain. -Continue promethazine 25mg oral tab every 6 hours for nausea and vomiting. -Continue Nurtec every other day, advised to take additional 2 tabs per month as abortive, samples given at last visit. NTE 1 tab in 24h. -Continue with Nerve block PRN -Continue ondansetron dissolvable tabs due to vomiting. OK to take prior to promethazine if needed -Consider Botox if no improvement with above. Reviewed procedure with patient. F/U: 4W or sooner PRN. Patient agrees with plan. All questions and concerns addressed. Patient instructed to maintain headache logs. Patient advised to contact office for any change in headache pattern, increase in frequency, duration, or severity of headaches. Medication reconciliation completed. Previous office visit note reviewed. Patient presents for evaluation and management. Pt was seen and evaluated by Brenda GUZMAN under the direct supervision of Dr. Poole who was consulted after the visit and agrees with the plan. Pt consents to virtual visit. 02/04/2025 Chronic migraine without aura, intractable, without status migrainosus (ICD-10 - G43.719) Pt with significant improvement in migraine 2 days after receiving nerve block and 1 day after starting acetazolamide 125mg 1 tab at bedtime. She does continue on prednisone taper. Pt now with very minimal pain, peak pain 3/10, easily aborted with Tylenol. Previously she had poorly controlled migraines over the past 6 months with an intractable migraine since 01/15/25 with pain as high as 8-9/10 up until 01/28. It is concerning that pt is having significant side effects from her current medication regimen including disturbing nightmares, very bothersome dry mouth, tachycardia and chest pain. Most of these symptoms are likely due to temporary dose escalation of nortriptyline. Will continue to titrate down from 40mg to 30mg. Pt previously was on 20mg without side effects. Will reduce acetazolamide given syncopal episodes started after starting medication, reduce down to 125mg 1 tab at bedtime. Discussed patient and evaluation with Dr. Poole, he agrees with above plan. I discussed with the patient and with Dr. Poole that her syncopal episodes are consistent with POTS. Pt would benefit from evaluation by a POTS specialist/cardio logist. She will call her PCP about these episodes. She has a h/o syncopal episodes but has not been evaluated. We discussed she possibly has EDS as this syndrome is commonly seen with POTS and migraine. Pt denies hypermobility, will eval further at next visit. Given that pt has had a change in severity and in headache pattern will obtain an MRI of brain w/wo contrast. Additionally, pt has a family history of DVT and PE in her father and 2 paternal uncles. Will order MRV to r/o thrombosis as cause of pain. -Reduce Acetazolamide 125mg to 1 tab at bedtime -Continue Prednisone taper done 02/11/25, recommended by Dr. Poole -Continue promethazine 25mg oral tab every 6 hours for nausea and vomiting. -Continue Nurtec every other day, advised to take additional 2 tabs per month as abortive, samples given at last visit. NTE 1 tab in 24h. -Continue with Nerve block PRN -Continue ondansetron dissolvable tabs due to vomiting. OK to take prior to promethazine if needed -Reduce nortriptyline to 30mg at bedtime. Reassuring EKG showed sinus tachycardia reviewed by Dr. Poole. Will continue to titrate down medication until side effects resolve. -Consider Botox or changing Emgality to Ajovy -Order MRI of brain w/wo contrast and MRV. Will f/u on PA. -Pt to look into [facility] paperwork and will call our office to have us complete. F/U: Next week via telehealth. Patient agrees with plan. All questions and concerns addressed. Patient instructed to maintain headache logs. Patient advised to contact office for any change in headache pattern, increase in frequency, duration, or severity of headaches. Medication reconciliation completed. Previous office visit note reviewed. Patient presents for evaluation and management. Pt was seen and evaluated by Brenda GUZMAN under the direct supervision of Dr. Poole who was consulted after the visit and agrees with the plan. Pt consents to virtual visit. 02/04/2025 Trigeminal neuralgia (ICD-10 - G50.0) Patient presents for evaluation and management. Pt was seen and evaluated by Brenda GUZMAN under the direct supervision of Dr. Poole who was consulted after the visit and agrees with the plan. Pt consents to virtual visit. 01/26/2025 Chronic migraine without aura, intractable, without status migrainosus (ICD-10 - G43.719) Pt with poorly controlled migraines over the past 6 months with an intractable migraine since 01/15/25 with pain as high as 8-9/10, now reduced to 5-6/10 though still vomiting 2x per day. Pt unsure of trigger, typically is stress or sugar. She does feel migraine location has migrated mostly focused to left V1 area, typically her migraines were her entire left head. Neuro exam performed WNL except for bilateral fine hand tremor she states she has had for 2 months. Given that pt has had a change in severity and in headache pattern will obtain an MRI of brain w/wo contrast. Additionally, pt has a family history of DVT and PE in her father and 2 paternal uncles. Will order MRV to r/o thrombosis as cause of pain. Will also start pt on acetazolamide. Pt did have occipital nerve block today as she did have tenderness to palpation of bilateral occipital grooves L>R causing radiating pain overhead. Will f/u next week on effectiveness. -Start Acetazolamide 125mg 1 tab at bedtime x3 days, then increase to 2 tabs at bedtime x3 days, then increase to 1 tab in AM and 2 tabs at bedtime -Continue Prednisone taper by 16 days, recommended by Dr. Poole -Continue promethazine 25mg oral tab every 6 hours for nausea and vomiting. If pt unable to tolerate she will call in for suppository. -Continue Nurtec every other day, advised to take additional 2 tabs per month as abortive, samples given at last visit. NTE 1 tab in 24h. -Continue with Nerve block PRN -Continue ondansetron dissolvable tabs due to vomiting. OK to take prior to promethazine if needed -Reduce nortriptyline to 40mg at bedtime. EKG performed today due to pt reporting occasional chest pain and palpitations and heart rate monitoring alarming HR in 120s multiple times per day. Dr. Poole reviewed EKG which showed sinus tachycardia. -Consider Botox or changing Emgality to Ajovy -Order MRI of brain w/wo contrast and MRV. F/U: Next week via telehealth. Patient agrees with plan. All questions and concerns addressed. Patient instructed to maintain headache logs. Patient advised to contact office for any change in headache pattern, increase in frequency, duration, or severity of headaches. Medication reconciliation completed. Previous office visit note reviewed. Patient presents for evaluation and management. Pt was seen and evaluated by Brenda GUZMAN under the direct supervision of Dr. Celestine Poole who was consulted after the visit and agrees with treatment plan. Sarita Braxton RN performed nerve block procedures. 01/26/2025 Trigeminal neuralgia (ICD-10 - G50.0) Patient presents for evaluation and management. Pt was seen and evaluated by Brenda GUZMAN under the direct supervision of Dr. Celestine Poole who was consulted after the visit and agrees with treatment plan. Sarita Braxton RN performed nerve block procedures. 01/21/2025 Chronic migraine without aura, intractable, without status migrainosus (ICD-10 - G43.719) Pt with poorly controlled migraines over the past 6 months and is now in an intractable severe migraine rating 8-9/10 with vomiting episodes throughout the day since Saturday01/15/25. Pt unsure of trigger, typically is stress or sugar. No new neurological or red flag symptoms. Pt denies any chance she is . Advised test as pt does not get her period. Pt does not recall her last headache free day. -Pt would benefit from IV fluids and IV medication to treat acutely such as Zofran and toradol, unfortunately she does not live close to our office. Recommended going to the ER. Pt declies. -Extend Prednisone taper by 16 days, recommended by Dr. Poole -Start promethazine 25mg oral tab every 6 hours for nausea and vomiting. If pt unable to tolerate she will call in for suppository. -Continue Nurtec every other day, advised to take additional 2 tabs per month as abortive, samples given at last visit. NTE 1 tab in 24h. -Continue with Nerve block PRN -Continue ondansetron dissolvable tabs due to vomiting. OK to take prior to promethazine if needed -Increase nortriptyline to 50mg at bedtime. Reviewed side effects of drowsiness and tachycardia/palpi tations. -Consider Botox or changing Emgality to Ajovy -Consider imaging to evaluate for secondary headache causes as there is no clear reasoning for why headaches have increased. Will perform neurologic exam next week. F/U: Next week in office. Patient agrees with plan. All questions and concerns addressed. Patient instructed to maintain headache logs. Patient advised to contact office for any change in headache pattern, increase in frequency, duration, or severity of headaches. Medication reconciliation completed. Previous office visit note reviewed. Patient presents for evaluation and management. Pt was seen and evaluated by Brenda GUZMAN under the direct supervision of Dr. Celestine Poole who was consulted after the visit. He agrees with the assessment and plan. Pt consents to treatment via telehealth. 01/11/2025 Trigeminal neuralgia (ICD-10 - G50.0) Patient presents for evaluation and management. Pt was seen and evaluated by Brenda GUZMAN under the supervision of Dr. Celestine Poole who was in the office at the time of the visit and available for consultation as needed. Pt consents to treatment in office. 12/29/2024 Myalgia of auxiliary muscles, head and neck (ICD-10 - M79.12) Patient presents for evaluation and management. Pt was seen and evaluated by Brenda GUZMAN under the direct supervision of Dr. Celestine Poole who was consulted after the visit. He agrees with the assessment and plan. Pt consents to treatment in office. 08/20/2024 Trigeminal neuralgia (ICD-10 - G50.0) 07/21/2024 [...] muscles, head and neck (ICD-10 - M79.12) 01/21/2025 Trigeminal neuralgia (ICD-10 - G50.0) Patient presents for evaluation and management. Pt was seen and evaluated by Brenda GUZMAN under the direct supervision of Dr. Celestine Poole who was consulted after the visit. He agrees with the assessment and plan. Pt consents to treatment via telehealth. 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 Pt was seen and evaluated by Brenda GUZMAN under the supervision of Dr. Celestine Poole who was in the office at the time of the visit and available for consultation as needed. Pt consents to treatment in office. 12/29/2024 Chronic migraine without aura, intractable, without status migrainosus (ICD-10 - G43.719) Patient presents for evaluation and management. Pt was seen and evaluated by Brenda GUZMAN under the direct supervision of Dr. Celestine Poole who was consulted after the visit. He agrees with the assessment and plan. Pt consents to treatment in office. 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 Pt was seen and evaluated by Brenda GUZMAN under the direct supervision of Dr. Celestine Poole who was consulted after the visit and agrees with treatment plan. Sarita Braxton RN performed nerve block procedures. 02/18/2025 Trigeminal neuralgia (ICD-10 - G50.0) Patient presents for evaluation and management. Pt was seen and evaluated by Brenda GUZMAN under the direct supervision of Dr. Poole who was consulted after the visit and agrees with the plan. Pt consents to virtual visit. 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 Pt was seen and evaluated by Brenda GUZMAN under the direct supervision of Dr. Poole who was consulted after the visit and agrees with the plan. Pt consents to virtual visit. 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 Pt was seen and evaluated by Brenda GUZMAN under the direct supervision of Dr. Poole who was consulted after the visit and agrees with the plan. Pt consents to virtual visit. 02/04/2025 Syncope and collapse (ICD-10 - R55) See above. Advise pt f/u with PCP regarding syncopal episodes. We will reduce her medications. She needs to be evaluated for POTS. Patient presents for evaluation and management. Pt was seen and evaluated by Brenda GUZMAN under the direct supervision of Dr. Poole who was consulted after the visit and agrees with the plan. Pt consents to virtual visit. 01/26/2025 Encounter for screening for cardiovascular disorders (ICD-10 - Z13.6) See above. ECG performed and reviewed by Dr. Poole given palpitations and report of occasional chest pains. Patient presents for evaluation and management. Pt was seen and evaluated by Brenda GUZMAN under the direct supervision of Dr. Celestine Poole who was consulted after the visit and agrees with treatment plan. Sarita Braxton RN performed nerve block procedures. 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 Pt was seen and evaluated by Brenda GUZMAN under the direct supervision of Dr. Celestine Poole who was consulted after the visit. He agrees with the assessment and plan. Pt consents to treatment via telehealth. 02/18/2025 Syncope and collapse (ICD-10 - R55) See above. Advise pt f/u with PCP regarding syncopal episodes. She has not had any further episodes since reducing nortriptyline. Patient presents for evaluation and management. Pt was seen and evaluated by Brenda GUZMAN under the direct supervision of Dr. Poole who was consulted after the visit and agrees with the plan. Pt consents to virtual visit. 01/11/2025 Other Patient presents for evaluation and management. Pt was seen and evaluated by Brenda GUZMAN under the supervision of Dr. Celestine Poole who was in the office at the time of the visit and available for consultation as needed. Pt consents to treatment in office. 02/04/2025 Other Patient presents for evaluation and management. Pt was seen and evaluated by Brenda GUZMAN under the direct supervision of Dr. Poole who was consulted after the visit and agrees with the plan. Pt consents to virtual visit. 08/25/2024 Patient presents for evaluation and management. Pt was seen and evaluated by Brenda GUZMAN under the direct supervision of Dr. Celestine Poole who was consulted after the visit. He agrees with the assessment and plan. Pt consents to treatment in office. Plan Of Treatment Next Appt Details Provider Name:Brenda Blas, 0 03/18/2025 03:30:00 PM, [address] [place] [address], [phone], Insurance Providers Payer Name Payer Address Payer Phone Subscriber Number Group Number Insured Name Patient Relationship to Insured Coverage Start Date Coverage End Date [place] OF [place] [address] [place], [place] [id number] Dania Ferreira Self - patient is the insured Medical (General) History Medical History History ICD Code Migraines Unknown anaphylactic allergy Insomnia Surgical History Surgery Date(Month/Year) lacrimal ducts 04/1999 [place] teeth removed Ingrown toenails Mole removal 08/19/23 Hospitalization History Reason Date(Month/Year) anaphylactic reaction 06/2022
[2025-03-11 09:11] VITALS: BMI 23.3
--- NOTE | 2025-03-11 09:11 | AM.OFFVISNUR ---
Vital Signs 03/11/25 09:11 Height 5 ft 4 in Weight 135 lb 8 oz BMI 23.3 Intake Visit Reasons: DEPO Allergies No Known Allergies Allergy (Verified 05/05/24 12:55) Nursing Note Dania is here today for her scheduled Depo-provera inj. She denies any problems or concerns. Pt is scheduled for her AG in the next few months. Follow up in 12 wks for next inj. Office Procedures Depo Questionnaire If YES to any of the following questions, please consult a provider. Date of last injection: 12/14/24 Date of last gynecology exam: 05/05/24 Menstrual pattern since last injection has been: Not Applicable Irregular bleeding?: No Breast lumps or other breast changes?: No Changes in weight or appetite?: Yes (lost 2 lbs) Depression or changes in mood?: No Abnormal hair growth or loss?: No Skin problems (rash, acne, discoloration)?: No Pain at the injection site?: No Headaches?: No Nervousness?: No Abdominal pain or cramping?: No Dizziness or nausea?: No Fatigue or weakness?: No Decrease in sexual drive?: No Chest pain or shortness of breath?: No Swelling in arms or legs?: No Any other problems or concerns?: none voiced Form completed by?: Gigi Huang LPN Office Meds Depo-Provera 150 mg/mL intramuscular syringe Performing Provider: Keara Lutz CNM Performing Location: [facility] Administered by: Soila Huang LPN on 03/11/25 09:11 Dose Route Admin Location Dispensed Lot Number Expiration Date [facility] Barrel Filler 150 mg IM rt. deltoid 1 mL [id number] 01/06/26 65376-583-76 MYLAN Total Dispensed Waste 1 mL 0 % Assessment & Plan Assessment & Plan Orders: Orders AMB Medroxyprogesterone Injection Patient Supplied Today Z30.9 - Encounter for contraceptive management, unspecified Coding Level of Care Code Established Pt Est Pt Level 1 (06399) Patient Type Established History Problem Focused Exam Problem Focused Medical Decision Making Straight Forward Time Spent (min) 20
== END 2025-03-11 09:44 | disposition home or self-care (01) ==
PROVIDERS: PCP Physician Assistant; Visit Provider Advanced Practice Midwife
DX: Z30.9 Encounter for contraceptive management, unspecified (principal)

== ENCOUNTER → 2025-03-11 08:58 | Outpatient (BNVA) | payer BC, SELFPAY | PROVIDERS: PCP Physician Assistant; Visit Provider Advanced Practice Midwife | DX: Z30.013 Encounter for initial prescription of injectable contraceptive (principal) | CPT/HCPCS: 96372; 99211; J1050 ==

== ENCOUNTER 2025-04-07 14:16 | Outpatient (REF) | payer BC, SELFPAY ==
[2025-04-07 22:31] LABS: CT PCR NOT DETECTED (Not Detect.); NG PCR NOT DETECTED (Not Detect.)
[2025-04-07 23:30] LABS: Bacterial Vaginosis PCR NEGATIVE (Negative); Candida Group PCR NOT DETECTED (Not Detect); Candida glab krusei PCR DETECTED (Not Detect); Trichomonas vaginalis PCR NOT DETECTED (Not Detect)
== END 2025-04-07 14:17 | disposition home or self-care (01) ==
LOC: HO.LNP 14:16
PROVIDERS: PCP Physician Assistant; Visit Provider Advanced Practice Midwife
DX: Z01.419 Encounter for gynecological examination (general) (routine) without abnormal findings (principal); R19.00 Intra-abdominal and pelvic swelling, mass and lump, unspecified site; Z11.3 Encounter for screening for infections with a predominantly sexual mode of transmission; Z11.51 Encounter for screening for human papillomavirus (HPV)
CPT/HCPCS: 81515; 87491; 87591; 87626; 88175

== ENCOUNTER 2025-04-07 14:16 | Outpatient (AMB) | payer BC, SELFPAY ==
[2025-04-07 14:22] VITALS: BP 98/60; BMI 22.9
--- NOTE | 2025-04-07 14:22 | MHC.OFFVIS ---
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/do not carmelita Sales Estimator Required: No Allergies No Known Allergies Allergy (Verified 04/07/25 14:25) Medication List - Last Reconciled 04/07/25 by Soila Huang LPN acetazolamide 125 mg PO BID acetazolamide ER 2,000 mg PO DAILY cetirizine (Zyrtec) 10 mg PO DAILY PRN epinephrine IM famotidine 20 mg PO BID fremanezumab-vfrm (Ajovy Syringe) 225 mg subcut QMONTH medroxyprogesterone (Depo-Provera) 150 mg IM [id number] nortriptyline 20 mg PO BEDTIME omalizumab (Xolair) mg subcut rizatriptan take 1 tab at onset of headache; if no relief may repeat 1 tab after at least 2 hrs; max = 3 tabs/24 hr PO Is last menstrual period known: No Post menopausal: No Patient : No Do you need a note to return to daycare/school/sports/work: No HPI Comments Details: Patient is a premenopausal woman presenting for annual examination. Life Skills Trainer concerns: none. Current Depo user. Currently is sexually active, uses condoms consistently. She denies vaginal itching or irritation. STI screening offered; she accepts, declines blood work. She denies any contraindications to control such as: migraines with aura, history of DVT or pulmonary emboli, high blood pressure, liver disease, thrombolic disorders, Lupus, +JASON, breast cancer, or smoking. She tries to eat healthy and stays active with exercise. No history of constipation, pelvic pain, rectal pain or bleeding, denies any changes in stool of including dark tarry stools. Denies family history of ovarian or colon cancer. FH breast cancer. Last pap smear 2021, negative. 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 Sexual orientation: Straight/Heterosexual Gender identity: Female Review of Systems Const All systems reviewed & are unremarkable except as noted in HPI and below Reports as per HPI Eyes Reports no additional complaints ENT Reports no additional complaints Card Reports no additional complaints Resp Reports no additional complaints GI Reports as per HPI and Reports no additional complaints Reports as per HPI Musc Reports no additional complaints Skin/Breast Reports as per HPI Neuro Reports no additional complaints Psych Reports no additional complaints Endo Reports no additional complaints Lai/Lymph Reports no additional complaints Aller/Immun Reports no additional complaints Physical Exam Vital Signs: Last Vital Signs BP 98/60 04/07/25 14:22 BMI result Body Mass Index 22.9 Const General: cooperative, healthy appearing, no acute distress, well developed and alert Orientation/consciousness: patient oriented x3 HEENT Head: Yes normal to inspection Eyes General: appearance normal, both eyes and all related structures Neck Neck: Yes normal visual inspection Thyroid: Thyroid normal Chest Chest palpation & inspection: normal inspection of the chest and other (no puckering, dimpling, peau de orange, retraction, discharge, masses) Breast/axilla inspection: normal inspection of the breasts Breast/axilla palpation: normal palpation of the breasts Resp Effort & Inspection: normal respiratory effort GI Inspection: Yes normal to inspection Palpation (GI): Soft to palpation Rectal Exam - Female: deferred General: Yes bladder normal to palpation External Female Exam: normal external appearance and normal appearance of the urethra Speculum Exam - Vagina: normal appearance of the vagina, normal palpation and normal vaginal discharge Speculum Exam - Cervix: normal appearance of the cervix and normal palpation Bimanual exam- vagina & uterus: normal bimanual exam, normal palpation, uterine size normal, bladder normal to palpation, normal palpation and non-tender Bimanual Exam- Adnexa, other: no masses and Other (2 cm firm rubbery mass noted midline deep pelvis) Skin General skin exam: no rashes or lesions noted Rashes: no rashes Neuro General: patient oriented x3 Cognition (Neuro): normal cognition Extrem General: Yes normal to inspection Psych Attitude: cooperative Thought process: Normal thought process present Assessment & Plan Assessment & Plan (1) Encounter for well woman exam with routine gynecological exam: Code(s): Z01.419 - Encounter for gynecological examination (general) (routine) without abnormal findings Category: Medical Plan: Discussed: Current recommendations for pap smears per ASCCP guidelines. Pap obtained, GC chlamydia and BV panel obtained. Breast awareness and periodic breast exams. Maintain a healthy lifestyle including a well balanced diet and routine exercise. Use condoms for STI and prevention. Patient verbalizes understanding and agrees to the plan of care. She was given opportunity to ask questions and all questions were answered to the best of my ability. 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 This note is constructed using voice recognition software. While every effort has been made to ensure accuracy, cafe attendant errors may have been included. (2) Surveillance for Depo-Provera contraception: Code(s): Z30.42 - Encounter for surveillance of injectable contraceptive Category: Medical Plan: Continue with Depo-Provera. control hormone use warnings: go to ER if and loss of vision, blindness, severe headache, chest pain or difficulty breathing, severe abdominal pain, or any pain or swelling in an extremity. The patient expressed understanding and agreement with the plan of care. All of her questions and concerns were addressed to the best of my ability. (3) Pelvic mass: Code(s): R19.00 - Intra-abdominal and pelvic swelling, mass and lump, unspecified site Category: Medical Plan Plan pelvic ultrasound, report any abnormal symptoms including rectal pain, bleeding, abdominal pain. Follow up pending results. The patient expressed understanding and agreement with the plan of care. All of her questions and concerns were addressed to the best of my ability. Total time I personally spent on visit and management today: ?15 minutes. Time spent included review of pertinent office notes in the electronic health record; review of laboratory and imaging results; review of personal family medical history; performing physical exam; discussing diagnosis and plan of care with the patient; documenting the encounter in the EMR. Orders: Orders US pelvic and transvaginal Today R19.00 - Intra-abdominal and pelvic swelling, mass and lump, unspecified site Medications: Refilled medroxyprogesterone (Depo-Provera) 150 mg IM [id number] 1 mL 4RF Coding Level of Care Code Est Pt Prev Care 18-39y(91214) Diagnoses Encounter for well woman exam with routine gynecological exam Z01.419 Surveillance for Depo-Provera contraception Z30.42 Pelvic mass R19.00
--- OUTSIDE RECORDS SUMMARY | 2025-04-07 14:57 | XMS_ITS | Encounter Summary ---
Author Organization [facility] Address [address] [place] [address] Care Team Providers Care Server Engineer Name Role Phone Karen Sorto MD Primary Care Provider Nishi Adams MD Primary Care Prov ider Encounter Details Date Type Department Care Team Description 06/19/2021 Release of Information Medical Records [address] [place] [id number] Abstract, Provider Social History Tobacco Use Types [...] on filedocumented in this encounter Care Teams Server Engineer Relationship Specialty Start Date End Date Karen Sorto MD PCP - General Internal Medicine 06/12/21 06/17/22 Nishi Thomson MD [address] [place] [id number] PCP - General Internal Medicine 06/18/22 documented as of this encounter
--- OUTSIDE RECORDS SUMMARY | 2025-04-07 14:58 | XMS_ITS | Clinical Summary ---
Author Organization [address] Address [address] [place] [phone] Phone Care Team Providers Care Herb Digger Name Role Phone Nishi Foster MD Primary [...] Care Team Description 01/13/2025 Telephone Adult Medicine [address], [place] [phone] Nishi Foster MD Referral (Neurology ) 01/11/2025 Telephone Adult Medicine [address] [phone] Nishi Foster MD Referral from Last 3 Months Immunizations Name Administration Dates Next Due Influenza Quadravalent, MDCK , 0.5ml, preservative free (Flucelvax) 6mo and older 06/13/2021 Tdap Tetanus diptheria acell ular pertussis (Boostrix; Adacel) 7yo and older 08/25/2020 Surgical History Surgery Date Site/Laterality Comments WISDOM TOOTH EXTRACTION PROCEDURE: HISTORICAL WISDOM TEETH EXTRACTION OTHER SURGICAL HISTORY PROCEDURE: [place] WEDGE EXCISION SKIN NAIL FOLD OTHER SURGICAL HISTORY PROCEDURE: [place] UNLISTED PROCEDURE LACRIMAL SYSTEM Medical History Medical [...] 3:00 PM EDT Office Visit Adult Medicine [facility] [address] [place] [phone] Nishi Foster MD [address] [place] [address] Health Maintenance Due Date Last Done Comments Hepatitis B Vaccines (1 of 3 - 19+ 3-dose series) 2017 HIV Screening 08/18/2022 Hepatitis C Screening 08/18/2022 Social Influencers of Health Screening 08/18/2022 COVID-19 Vaccine ( - 2023-2 5 season) 2024 10/04/2020, 09/13/2020 Depression Screening 09/09/2024 Influenza Vaccine (#1) 2025 06/13/2021 Cervical Cancer Screening: P ap [...] 5 Years) and At-Risk Patients (6 to 49 Years) Aged Out No longer eligible b [...] Most Recently Relevant to Health Maintenance Insurance [facility] Care Teams Herb Digger Relationship Specialty Start Date End Date Nishi Foster MD PCP - General Internal Medicine 06/18/22
--- OUTSIDE RECORDS SUMMARY | 2025-04-07 14:58 | XMS_ITS | Patient Health Record ---
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 [address] [place] [id number] Dania Ferreira Self - patient is the insured Medical (General) History Medical History History ICD Code Chicken pox Warts Surgical History Surgery Date(Month/Year) eye surgery, tear ducs Ingrown Toe Nail NICHOLAS great toes 09/17/17
== END 2025-04-07 15:11 | disposition home or self-care (01) ==
LOC: HO.HWS 14:17
PROVIDERS: PCP Physician Assistant; Visit Provider Advanced Practice Midwife
DX: Z01.419 Encounter for gynecological examination (general) (routine) without abnormal findings (principal); Z30.42 Encounter for surveillance of injectable contraceptive; R19.00 Intra-abdominal and pelvic swelling, mass and lump, unspecified site
CPT/HCPCS: 99395; 99459

== ENCOUNTER 2025-04-08 13:53 | Outpatient (REF) | payer BC, SELFPAY ==
--- OUTSIDE RECORDS SUMMARY | 2025-04-06 06:00 | XMS_ITS ---
Author Organization [facility] Address [address] [place] [address] Care Team Providers Care Garbage Collector Name Role Phone Nishi Thomson Primary Care Provider Celestine Sutherland Unavailable [phone] REASON FOR VISIT NB Medications Medication SIG (Take, Route, Frequency, Duration) Notes Start Date End Date Status Rizatriptan Benzoate 10 MG 1/2 to 1 tablet along with 2 tabs ibuprofen Oral as needed at onset of migraine. May repeat once after 2 hrs if headache returns.; Duration: 30 days PRN 06/27/2021 Not-Taking predniSONE 20 MG standing order as directed Orally As needed per agricultural consultant 01/10/2023 Not-Taking predniSONE 20 MG As directed, every morning with food. Orally 3 tabs for 4 days, 2 tabs for 4 days, 1 tab for 4 days, 1/2 tab for 4 days.; Duration: 30 days Not-Taking Ondansetron HCl 8 MG 1 tablet as needed Orally q6h prn nausea; Duration: 30 day(s) PRN Not-Taking EPINEPHrine (Anaphylaxis) 30 MG/30ML as directed Injection As needed for anaphylaxis per agricultural consultant 01/10/2023 Active Acetaminophen Extra Strength 500 MG 1 tablet as needed Orally every 6 hrs PRN Active Ibuprofen Childrens 100 MG/5ML 20 ml with food or milk as needed Orally prn headache difficulty swallowing pills Active Xolair 150 MG/ML 2 injections Subcutaneous once per month per agricultural consultant 12/27/2022 Active Depo-Provera 150 MG/ML 1 ml Intramuscular Active Famotidine 40 MG 1 tablet Orally Twice a day PRN Active ZyrTEC Allergy 10 MG 1 tablet Orally at bedtime Active Promethazine HCl 25 MG 1 tablet as needed Orally every 6 hours; Duration: 30 days Monitor for drowsiness. OK to take with ondansetron as needed Not-Taking Eletriptan Hydrobromide 40 MG 1/2 tablet to 1 tablet at onset of migraine with 2 tabs Ibuprofen Orally as needed, may repeat 2nd tab 2 hours later if migraine persists; Duration: 30 days Do not combine triptans Stopping rizatriptan Active acetaZOLAMIDE 125 MG As directed Orally 2 tabs in AM and 4 tabs at bedtime x1 week, then increase to 3 tabs in AM and 4 tabs at bedtime x1 week, then increase to 4 tabs twice a day and continue. Only increase as tolerated.; Duration: 30 days Active Ajovy 225 MG/1.5ML Inject 1 autoinjector Subcutaneous q27-30 days; Duration: 90 days Active Nortriptyline HCl 10 MG 3 capsules Oral Once a day at bedtime; Duration: 90 days Active Ondansetron 8 MG 1 tablet on the tongue and allow to dissolve as needed Orally Once a day for nausea; Duration: 30 days Active Nurtec 75 MG 1 tablet on the tongue and allow to dissolve Orally every other day; Duration: 30 days May take up to 18 tabs per month Active Social History Sex Assigned At : Social History Observation Description Sex Assigned At Female Vital Signs Blood pressure systolic 110 mm Hg 04/06/20 25 Blood pressure diastolic 88 mm Hg 025 Heart Rate 119 /min 04/06/2025 Height 64 in 04/06/2025 Weight 131.7 lbs 04/06/2025 BMI 22.6 kg/m2 04/06/2025 Weight-kg 59.74 kg 04/06/2025 Encounters Encounter Location Date Provider Diagnosis [facility], [address] [place] [phone] 04/06/2025 Celestine Poole Plan Of Treatment Next Appt Details Provider Name:Brenda Odonnell, 0 05/05/2025 02:30:00 PM, [address] [place] [address], [phone], Progress Notes * Eric CANOOB: [birth year] (25 yo F)Acc No.[id number]:04/06/2025 Patient: Dania PORTILLO Provider: Reinier Poole MD Resource:Sarita Braxton :2000 A ge:25 Y S ex:Female Date:04/06/2025 Address:[address] [place] [address] [place], [phone] Pcp:Nishi Flores Subjective: * Chief Complaints: * 1 . NB. * Medical History: * Medications: T aking Nurtec 75 MG Tablet Disintegrating 1 tablet on the tongue and allow to dissolve Orally every other day May take up to 18 tabs per month, Taking Ondansetron 8 MG Tablet Disintegrating 1 tablet on the tongue and allow to dissolve as needed Orally Once a day for nausea , Taking Nortriptyline HCl 10 MG Capsule 3 capsules Oral Once a day at bedtime , Taking Ajovy 225 MG/1.5ML Solution Auto-injector Inject 1 autoinjector Subcutaneous q27-30 days , Taking acetaZOLAMIDE 125 MG Tablet As directed Orally 2 tabs in AM and 4 tabs at bedtime x1 week, then increase to 3 tabs in AM and 4 tabs at bedtime x1 week, then increase to 4 tabs twice a day and continue. Only increase as tolerated. , Taking Eletriptan Hydrobromide 40 MG Tablet 1/2 tablet to 1 tablet at onset of migraine with 2 tabs Ibuprofen Orally as needed, may repeat 2nd tab 2 hours later if migraine persists Do not combine triptans, Notes to Pharmacist: Stopping rizatriptan, Taking ZyrTEC Allergy 10 MG Tablet 1 tablet Orally at bedtime , Taking Ibuprofen Childrens 100 MG/5ML Suspension 20 [...] 150 MG/ML Suspension 1 ml Intramuscular , Taking Xolair 150 MG/ML Solution Prefilled Syringe 2 injections Subcutaneous once per month per agricultural consultant , Taking EPINEPHrine (Anaphylaxis) 30 MG/30ML Solution as directed Injection As needed for anaphylaxis per agricultural consultant, Not-Taking Promethazine HCl 25 MG Tablet 1 tablet as needed Orally every 6 hours Monitor for drowsiness. OK to take with ondansetron as needed, Not-Taking Ondansetron HCl 8 MG Tablet 1 tablet as needed Orally q6h prn nausea , Notes to Pharmacist: PRN, Not-Taking predniSONE 20 MG Tablet As directed, every morning with food. Orally 3 tabs for 4 days, 2 tabs for 4 days, 1 tab for 4 days, 1/2 tab for 4 days. , Not-Taking predniSONE 20 MG Tablet standing order as directed Orally As needed per agricultural consultant, Not-Taking Rizatriptan Benzoate 10 MG Tablet 1/2 to 1 tablet along with 2 tabs ibuprofen Oral as needed at onset of migraine. May repeat once after 2 hrs if headache returns. , Notes to Pharmacist: PRN Objective: * Vitals: B P:110/88mm Hg, HR:119/min, Wt:131.7lbs, Wt-k.74 kg, Ht: 64 in, BMI:22.6Index, Body Surface Area: 1.64. Assessment: Plan: * Treatment: * Billing Information: * Visit Code: * Procedure Codes: * [place], [id number] on 04/08/2025 at 02:05 PM EDT Sign off status: Pending * Provider: Reinier Poole MD Date: 04/06/2025 Generated for Elena hernández/Morgan/Jvitting on: 04/08/2025 02:05 PM EDT
--- NOTE | ~2025-04-08 | US_ITS ---
EXAMINATION: US PELVIS TRANSABDOMINAL AND TRANSVAGINAL HISTORY: R19.00 - Intra-abdominal and pelvic swelling, mass and lump, unspecified... COMPARISON: There are no prior studies available for comparison. TECHNIQUE: Transabdominal and endovaginal real-time 2D waldron-scale ultrasound was performed. FINDINGS: Uterus: The uterus is normal in size, measuring 5.1 x 2.3 x 4.0 cm. Myometrium has a normal echotexture. No fibroids are identified. Endometrium: The endometrial stripe measures 4 mm in thickness. Right ovary: The right ovary measures 3.2 x 1.8 x 1.9 cm. The right ovary is normal in size and echotexture. Left ovary: The left ovary measures 2.7 x 1.7 x 2.0 cm. The left ovary is normal in size and echotexture. Pelvic fluid: none. US/US pelvic and transvaginal IMPRESSION: Unremarkable pelvic ultrasound. Electronically signed by: Pratik Marroquin MD 04/08/2025 02:40 PM EDT
--- OUTSIDE RECORDS SUMMARY | 2025-04-08 14:06 | XMS_ITS | Clinical Summary ---
Author Organization [address] Address [address] [place] [phone] Phone Care Team Providers Care Yeast Maker Name Role Phone Nishi Foster MD Primary [...] Care Team Description 01/13/2025 Telephone Adult Medicine [address], [place] [phone] Nishi Foster MD Referral (Neurology ) 01/11/2025 Telephone Adult Medicine [address] [phone] Nishi Foster MD Referral from Last 3 [...] 3:00 PM EDT Office Visit Adult Medicine [facility] [address] [place] [address] Nishi Foster MD [address] [place] [address] Health Maintenance Due Date Last Done Comments [...] Recently Relevant to Health Maintenance Insurance [facility] Care Teams Yeast Maker Relationship Specialty Start Date End Date Nishi Foster MD PCP - General Internal Medicine 06/18/22
== END 2025-04-08 13:54 | disposition home or self-care (01) ==
LOC: HO.HMGCX 13:53
PROVIDERS: PCP Internal Medicine; Visit Provider Advanced Practice Midwife
DX: R19.00 Intra-abdominal and pelvic swelling, mass and lump, unspecified site (principal)
CPT/HCPCS: 76830; 76856

== ENCOUNTER → 2025-04-08 13:59 | Outpatient (BNV) | payer BC, SELFPAY | PROVIDERS: PCP Internal Medicine; Visit Provider Radiology Diagnostic Radiology | DX: R19.00 Intra-abdominal and pelvic swelling, mass and lump, unspecified site (principal) | CPT/HCPCS: 76830; 76856 ==

== ENCOUNTER 2025-04-13 12:03 | Outpatient (AMB) | payer BC, SELFPAY ==
--- NOTE | 2025-04-13 12:05 | A.OFFVIS_ITS ---
Intake Visit Reasons: U/S f/u Allergies No Known Allergies Allergy (Verified 04/07/25 14:25) HPI Comments Details: Patient is here today for a follow up on her pelvic ultrasound. History of a pelvic mass noted on last exam. She reports she has had UTI symptoms since the test after experiencing a full bladder for the procedure. Overall she denies any pelvic pain symptoms. 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 Sexual orientation: Straight/Heterosexual Gender identity: Female Review of Systems Const All systems reviewed & are unremarkable except as noted in HPI and below Physical Exam Const General: cooperative, healthy appearing and no acute distress Orientation/consciousness: patient oriented x3 GI Inspection: Yes normal to inspection Palpation (GI): Soft to palpation and Other GI palpation findings present (Nontender) Rectal Exam - Female: visual inspection normal General: Yes bladder normal to palpation External Female Exam: normal appearance of the urethra Speculum Exam - Vagina: normal appearance of the vagina, normal palpation and normal vaginal discharge Speculum Exam - Cervix: normal appearance of the cervix and normal palpation Bimanual exam- vagina & uterus: normal bimanual exam, normal palpation, uterine size normal, bladder normal to palpation, normal palpation, uterine shape normal and non-tender Bimanual Exam- Adnexa, other: normal adnexae and Other (1cm firm, rubbery mass posterior, mid deep pelvis) Neuro General: patient oriented x3 Results AMB Urinalysis, Automated UA Leukoctes Pal/uL Last Edit by Soila Huang LPN on 04/13/25 12:33 UA Nitrite Last Edit by Soila Huang LPN on 04/13/25 12:33 UA Urobilinogen mg/dL Last Edit by Soila Huang LPN on 04/13/25 12: 33 UA Protein 0.3 mg/dL Last Edit by Soila Huang LPN on 04/13/25 12:33 UA pH Last Edit by Soila Huang LPN on 04/13/25 12:33 UA Blood Sai/uL Last Edit by Soila Huang LPN on 04/13/25 12:33 UA Specific [place] 1.025 Last Edit by Soila Huang LPN on 04/13/25 12:33 UA Ketone Positive Last Edit by Soila Huang LPN on 04/13/25 12:33 UA Bilirubin 17 mg/dL Last Edit by Soila Huang LPN on 04/13/25 12:3 3 UA Glucose mg/dL Last Edit by Soila Huang LPN on 04/13/25 12:33 Results Reviewed Results Reviewed: [facility] [address] [place] [address] [place] [address] Ultrasound Report Signed Patient: Dania Ferreira MR#: [id number] : 2000 Acct:[id number] Age/Sex: 25 / F ADM Date: 04/08/25 Loc: HO.HMGCX Attending Dr: Keara Lutz CNM Ordering Physician: Keara Lutz CNM Date of Service: 04/08/25 Procedure(s): US pelvic and transvaginal Accession Number(s): [id number] cc: Keara Lutz CNM; Nishi Thomson MD~ EXAMINATION: US PELVIS TRANSABDOMINAL AND TRANSVAGINAL HISTORY: R19.00 - Intra-abdominal and pelvic swelling, mass and lump, unspecified... COMPARISON: There are no prior studies available for comparison. TECHNIQUE: Transabdominal and endovaginal real-time 2D waldron-scale ultrasound was performed. FINDINGS: Uterus: The uterus is normal in size, measuring 5.1 x 2.3 x 4.0 cm. Myometrium has a normal echotexture. No fibroids are identified. Endometrium: The endometrial stripe measures 4 mm in thickness. Right ovary: The right ovary measures 3.2 x 1.8 x 1.9 cm. The right ovary is normal in size and echotexture. Left ovary: The left ovary measures 2.7 x 1.7 x 2.0 cm. The left ovary is normal in size and echotexture. Pelvic fluid: none. US/US pelvic and transvaginal IMPRESSION: Unremarkable pelvic ultrasound. Electronically signed by: Pratik Marroquin MD 04/08/2025 02:40 PM EDT RP Dictated By: Pratik Marroquin MD Signed By: <Electronically signed by Pratik Marroquin MD in OV> 04/08/25 1440 DD/ 1408 TD/TT: 04/08/25 1429 Specialist Physician: Assessment & Plan Assessment & Plan (1) Pelvic mass: Code(s): R19.00 - Intra-abdominal and pelvic swelling, mass and lump, unspecified site Category: Medical Plan: Discussed: Ultrasound findings- Unremarkable findings. Due to exam findings, possible limitations with ultrasound in locating area of concern, plan pelvic MRI for further evaluation. Await results for plan of care. The patient expressed understanding and agreement with the plan of care. All of her questions and concerns were addressed to the best of my ability. (2) Sensation of pressure in bladder area: Code(s): R39.89 - Other symptoms and signs involving the genitourinary system Plan Urine dip does not indicate any leukocytes, blood or nitrates. Advised to hydrate well, and to avoid any bladder irritants, consider use of [id number] bladder medication, follow up if bladder symptoms persist. The patient expressed understanding and agreement with the plan of care. All of her questions and concerns were addressed to the best of my ability. This note is constructed using voice recognition software. While every effort has been made to ensure accuracy, marina manager errors may have been included. Orders: Orders MR pelvis wo/w con Today R19.00 - Intra-abdominal and pelvic swelling, mass and lump, unspecified site AMB Urinalysis Automated Today R39.14 - Feeling of incomplete bladder emptying Coding Level of Care Code Est Pt Level 3 (41557) Diagnoses Pelvic mass R19.00 Sensation of pressure in bladder area R39.89
--- OUTSIDE RECORDS SUMMARY | 2025-04-13 12:51 | XMS_ITS | Encounter Summary ---
Author Organization [facility] Address [address] [place] [address] Care Team Providers Care Jewellery Designer Name Role Phone Karen Sorto MD Primary Care Provider Nishi Adams MD Primary Care Prov ider Encounter Details Date Type Department Care Team Description 06/19/2021 Release of Information Medical Records [address] [place] [id number] Abstract, Provider Social History Tobacco Use Types [...] on filedocumented in this encounter Care Teams Jewellery Designer Relationship Specialty Start Date End Date Karen Sorto MD PCP - General Internal Medicine 06/12/21 06/17/22 Nishi Thomson MD [address] [place] [id number] PCP - General Internal Medicine 06/18/22 documented as of this encounter
--- OUTSIDE RECORDS SUMMARY | 2025-04-13 12:51 | XMS_ITS | Patient Health Record ---
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 Name Role Phone Coral Lawrence MD Primary Care Provider Hiral Treviño Unavailable [phone] Reason For Referral No Information Medications Medication [...] Problem Status W/U Status Risk Notes Problem Plantarflexion deformity of right foot (finding) (2558834519721534) Equinus contracture of right ankle (M24.571) Active confirmed Plan Of Treatment Pending Test Test Name Order Date X ray : Foot, right 3V 02/05/2017 [id number] Plate 07/20/2015 [id number]-Ywqsfcbn Plate 08/03/2015 90178-Udxeuagk Plate 11/19/2016 [id number] 02/05/2017 [id number] 09/17/2017 07667- Debride <25 sq cm 10/02/2017 63122- Debride <25 sq cm 02/19/2017 Insurance Providers Payer Name Payer Address Payer Phone Subscriber Number Group Number Insured Name Patient Relationship to Insured Coverage Start Date Coverage End Date [employer] ([facility]) [address] [place] [id number] Dania Ferreira Self - patient is the insured Medical (General) History Medical History History ICD Code Chicken pox Warts Surgical History Surgery Date(Month/Year) eye surgery, tear ducs Ingrown Toe Nail NICHOLAS great toes 09/17/17
--- OUTSIDE RECORDS SUMMARY | 2025-04-13 12:51 | XMS_ITS | Patient Health Record ---
Author Organization [facility] Address [address] [place] [address] Care Team Providers Care Body Masker Name Role Phone Nishi Thomson Primary Care Provider Celestine Sutherland Unavailable [phone] Brenda Odonnell Unavailable [phone] Allergies Allergen (clinical drug ingredient) Drug/Non Drug Allergy documented on EMR Reaction Allergy Type Onset Date Status Gluten Gluten Unknown Allergy Active lactose Lactose (Intolerance) Unknown Drug Allergy Active No Known Drug Allergy Unknown Drug Allergy Active Reason For Referral Reason OFFICE VISIT Diagnosis 1 Migraine without aur a, not intractable, without status migrainosus (G43.009) Referred Organization [employer]. 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 OK to take with ondansetron as needed Not-Taking Rizatriptan Benzoate 10 MG 1/2 to 1 tablet along with 2 tabs ibuprofen Oral as needed at onset of migraine. May repeat once after 2 hrs if headache returns.; Duration: 30 days PRN 06/27/2021 Not-Taking predniSONE 20 MG standing order as directed Orally As needed per crushing machine operator 01/10/2023 Not-Taking predniSONE 20 MG As directed, every morning with food. Orally 3 tabs for 4 days, 2 tabs for 4 days, 1 tab for 4 days, 1/2 tab for 4 days.; Duration: 30 days Not-Taking Ondansetron HCl 8 MG 1 tablet as needed Orally q6h prn nausea; Duration: 30 day(s) PRN Not-Taking Nurtec 75 MG 1 tablet on the tongue and allow to dissolve Orally every other day; Duration: 30 days May take up to 18 tabs per month Active Nortriptyline HCl 10 MG 3 capsules Oral Once a day at bedtime; Duration: 90 days Active Ondansetron 8 MG 1 tablet on the tongue and allow to dissolve as needed Orally Once a day for nausea; Duration: 30 days Active acetaZOLAMIDE 125 MG As directed Orally 2 tabs in AM and 4 tabs at bedtime x1 week, then increase to 3 tabs in AM and 4 tabs at bedtime x1 week, then increase to 4 tabs twice a day and continue. Only increase as tolerated.; Duration: 30 days Active Ajovy 225 MG/1.5ML Inject 1 autoinjector Subcutaneous q27-30 days; Duration: 90 days Active Eletriptan Hydrobromide 40 MG 1/2 tablet to 1 tablet at onset of migraine with 2 tabs Ibuprofen Orally as needed, may repeat 2nd tab 2 hours later if migraine persists; Duration: 30 days Do not combine triptans Stopping rizatriptan Active Social History Tobacco Use: Social History [...] Partial bedrest 1-2 days. 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 Partial days missed, 6-10 days. Days of bedrest in last 1 month: Full bed rest 1-to days. Partial bedrest 1-2 days. Works at an [employer], in school, studying accounting no smoking Level of disability Work loss in last 3 months: 1 day missed Days of bedrest in last 3 months: Full bed rest 1 day. Works at an [employer], in school, studying accounting no smoking Level of disability Work loss in last 3 months: 1 day missed Days of bedrest in last 3 months: Full bed rest 1 day. Works at an [employer], in school, studying accounting no smoking Level of disability Work loss in last 3 months: 1 day missed Days of bedrest in last 3 months: Full bed rest 1 day. Works at an [employer], in school, studying accounting no smoking Level of disability Work loss in last 3 months: 1 day missed Days of bedrest in last 3 months: Full bed rest 1 day. 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, Problems Problem Type SNOMED Code ICD Code Onset Dates Problem Status W/U Status Risk Notes Problem Migraine without aura, not refractory (873397330) Migraine without aura, not intractable, without status migrainosus (G43.009) Active confirmed Problem Refractory migraine without aura (823694780) Migraine without aura, intractable, without status migrainosus (G43.019) Active confirmed Problem Chronic intractable migraine without aura (713525947074355) Chronic migraine without aura, intractable, without status migrainosus (G43.719) Active confirmed Problem Insomnia (543653748) Insomnia, unspecified (G47.00) Active confirmed Problem Trigeminal neuralgia (75732777) Trigeminal neuralgia (G50.0) Active confirmed Problem Occipital neuralgia (58462042) Occipital neuralgia (M54.81) Active confirmed Problem Screening for cardiovascular system disease (303355507) Encounter for screening for cardiovascular disorders (Z13.6) Active confirmed Problem Myalgia of auxiliary muscles, 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) Active confirmed Vital Signs Heart Rate 119 /min 04/06/2025 Blood pressure diastolic 88 mm Hg 04/06/2025 Weight-kg 59.74 kg 04/06/2025 Height 64 in 04/06/2025 Blood pressure systolic 110 mm Hg 04/06/2025 Weight 131.7 lbs 04/06/2025 BMI 22.6 kg/m2 04/06/2025 Encounters Encounter Location Date [facility] [address] [place] [phone] 07/14/2024 Brenda Jaegnahid Migraine without aur a, intractable, without status migrainosus G43.019 and Occipital neuralgia M54.81 [facility] [address] [place] [phone] 12/29/2024 Celestine Baileyley Occipital neuralgia M54.81 ; Trigeminal neuralgia G50.0 ; Myalgia of auxiliary muscles, head and neck M79.12 and Chronic migraine without aura, intractable, without status migrainosus G43.719 [facility] [address] [place] [phone] 07/21/2024 Celestine Poole Migraine without aur a, intractable, without status migrainosus G43.019 ; Occipital neuralgia M54.81 and Myalgia of auxiliary muscles, head and neck M79.12 [facility] [address] [place] [phone] 08/20/2024 Celestine Virgilio Migraine without aur a, intractable, without status migrainosus G43.019 ; Occipital neuralgia M54.81 ; Trigeminal neuralgia G50.0 and Myalgia of auxiliary muscles, head and neck M79.12 [facility] [address] [place] [phone] 01/11/2025 Brenda Jaegle Occipital neuralgia M54.81 ; Chronic migraine without aura, intractable, without status migrainosus G43.719 ; Trigeminal neuralgia G50.0 and Myalgia of auxiliary muscles, head and neck M79.12 [facility] [place] [address] [place] [phone] 01/21/2025 Brenda Jaegle Occipital neuralgia M54.81 ; Chronic migraine without aura, intractable, without status migrainosus G43.719 ; Trigeminal neuralgia G50.0 and Myalgia of auxiliary muscles, head and neck M79.12 [facility] [place] [address] [place] [phone] 01/26/2025 Brenda Jaegle Occipital neuralgia M54.81 ; Chronic migraine without aura, intractable, without status migrainosus G43.719 ; Trigeminal neuralgia G50.0 ; Myalgia of auxiliary muscles, head and neck M79.12 and Encounter for screening for cardiovascular disorders Z13.6 [facility] [address] [place] [phone] 02/04/2025 Brenda Jaegle Occipital neuralgia M54.81 ; Chronic migraine without aura, intractable, without status migrainosus G43.719 ; Trigeminal neuralgia G50.0 ; Myalgia of auxiliary muscles, head and neck M79.12 and Syncope and collapse R55 [facility] [address] [place] [phone] 02/18/2025 Brenda Jaegle Occipital neuralgia M54.81 ; Chronic migraine without aura, intractable, without status migrainosus G43.719 ; Trigeminal neuralgia G50.0 ; Myalgia of auxiliary muscles, head and neck M79.12 and Syncope and collapse R55 [facility] [address] [place] [phone] 03/18/2025 Brenda Jaegle Occipital neuralgia M54.81 ; Chronic migraine without aura, intractable, without status migrainosus G43.719 ; Trigeminal neuralgia G50.0 and Myalgia of auxiliary muscles, head and neck M79.12 [facility] [address] [place] [phone] 04/01/2025 Brenda Jaegle Occipital neuralgia M54.81 ; Chronic migraine without aura, intractable, without status migrainosus G43.719 ; Trigeminal neuralgia G50.0 and Myalgia of auxiliary muscles, head and neck M79.12 [facility] [address] [place] [address] 04/06/2025 Celestine Poole Occipital neuralgia M54.81 ; Chronic migraine without aura, intractable, without status migrainosus G43.719 ; Trigeminal neuralgia G50.0 and Myalgia of auxiliary muscles, head and neck M79.12 [facility] [address] [place] [address] 07/14/2024 Celestine Poole [facility] [address] [place] [phone] 07/14/2024 Brenda Odonenll [facility] [address] [place] [phone] 01/19/2025 Celestine Poole [facility] [address] [place] [phone] 01/20/2025 Celestine Poole [facility] [address] [place] [phone] 02/03/2025 Celestine Poole [facility] [address] [place] [phone] 02/10/2025 Celestine Poole [facility] [address] [place] [phone] 02/10/2025 Celestine Poole [facility] [address] [place] [phone] 02/18/2025 Celestine Poole [facility] [address] [place] [phone] 02/18/2025 Celestine Poole [facility] [address] [place] [phone] 03/04/2025 Celestine Poole Assessments Encounter Date Diagnosis (ICD Code) Assessment Notes Treatment Notes Treatment Clinical Notes Section Notes 07/14/2024 Migraine without aura, intractable, without status [...] the plan. Pt consents to virtual visit. 03/18/2025 Occipital neuralgia (ICD-10 - M54.81) Patient presents for evaluation and management. Pt was seen and evaluated by Brenda GUZMAN. Pt consents to virtual visit. 04/01/2025 Occipital neuralgia (ICD-10 - M54.81) Patient presents for evaluation and management. Pt was seen and evaluated by Brenda GUZMAN. Pt consents to virtual visit. 04/06/2025 Chronic migraine without aura, intractable, without status migrainosus (ICD-10 - G43.719) Pt with improvement in migraine severity and respond to rescue medications since starting Ajovy and increasing acetazolamide. She does continue with daily migraines scoring them 4-5/10 which is an improvement from 5-6/10. -Increase Acetazolamide 125mg 2 tabs in AM and 4 tabs HS x1 week, then increase by 1 tab each week to goal of 4 tabs BID and continue. Will convert to 250mg tabs once stabilized. -Schedule nerve block next week per patient request as she responded well to her last injections on 01/26/25. Pt aware she should have moderate pain at time of procedure. -Continue Ajovy, pt has only had 2 injections so far, due next week, tolerating well. -Continue Nortriptyline 30mg, cannot titrate up due to side effects. Would not taper off due to insomnia. Pt will try melatonin. Advised pt contact her PCP regarding management of insomnia as this can be a trigger for migraines. Would like to have her come off nortriptyline ultimately to help with nightmares. -Start Eletriptan instead of rizatriptan PRN migraine due to sedating side effects of rizatriptan. Pt aware not to take both triptans. -Continue promethazine 25mg oral tab every 6 hours for nausea and vomiting. -Continue Nurtec every other day, advised to take additional 2 tabs per month as abortive, samples given at last visit. NTE 1 tab in 24h. -Continue ondansetron dissolvable tabs due to vomiting. OK to take prior to promethazine if needed -Consider Botox if no improvement with above. Reviewed procedure with patient. F/U: next week for nerve block, 4W for office visit. Patient agrees with plan. All questions and concerns addressed. Patient instructed to maintain headache logs. Patient advised to contact office for any change in headache pattern, increase in frequency, duration, or severity of headaches. Medication reconciliation completed. Previous office visit note reviewed. Patient presents for evaluation and management. Pt was seen and evaluated by Brenda GUZMAN. Pt consents to virtual visit. 04/06/2025 Occipital neuralgia (ICD-10 - M54.81) Patient presents for evaluation and management. Pt was seen and evaluated by Brenda GUZMAN. Pt consents to virtual visit. 04/06/2025 Trigeminal neuralgia (ICD-10 - G50.0) Patient presents for evaluation and management. Pt was seen and evaluated by Brenda GUZMAN. Pt consents to virtual visit. 04/01/2025 Chronic migraine without aura, intractable, without status migrainosus (ICD-10 - G43.719) Pt with improvement in migraine severity and respond to rescue medications since starting Ajovy and increasing acetazolamide. She does continue with daily migraines scoring them 4-5/10 which is an improvement from 5-6/10. -Increase Acetazolamide 125mg 2 tabs in AM and 4 tabs HS x1 week, then increase by 1 tab each week to goal of 4 tabs BID and continue. Will convert to 250mg tabs once stabilized. -Schedule nerve block next week per patient request as she responded well to her last injections on 01/26/25. Pt aware she should have moderate pain at time of procedure. -Continue Ajovy, pt has only had 2 injections so far, due next week, tolerating well. -Continue Nortriptyline 30mg, cannot titrate up due to side effects. Would not taper off due to insomnia. Pt will try melatonin. Advised pt contact her PCP regarding management of insomnia as this can be a trigger for migraines. Would like to have her come off nortriptyline ultimately to help with nightmares. -Start Eletriptan instead of rizatriptan PRN migraine due to sedating side effects of rizatriptan. Pt aware not to take both triptans. -Continue promethazine 25mg oral tab every 6 hours for nausea and vomiting. -Continue Nurtec every other day, advised to take additional 2 tabs per month as abortive, samples given at last visit. NTE 1 tab in 24h. -Continue ondansetron dissolvable tabs due to vomiting. OK to take prior to promethazine if needed -Consider Botox if no improvement with above. Reviewed procedure with patient. F/U: next week for nerve block, 4W for office visit. Patient agrees with plan. All questions and concerns addressed. Patient instructed to maintain headache logs. Patient advised to contact office for any change in headache pattern, increase in frequency, duration, or severity of headaches. Medication reconciliation completed. Previous office visit note reviewed. Patient presents for evaluation and management. Pt was seen and evaluated by Brenda GUZMAN. Pt consents to virtual visit. 03/18/2025 Chronic migraine without aura, intractable, without status migrainosus (ICD-10 - G43.719) Pt with improvement in migraine severity and respond to rescue medications since starting Ajovy and increasing acetazolamide. She does continue with daily migraines scoring them 5-6/10. We reviewed her MRI and MRV findings today in detail. We discussed that Dr. 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 No acute clot. Given these findings will continue to increase acetazolamide as pt is tolerating well to see if she responds. We also discussed hematology consult given concern for old thrombosis and family history of DVT in her father and paternal uncles. Pt will ask her father where he went to see a leadite worker and will plan to refer there for a genetic work up. -Increase Acetazolamide 125mg 2 tabs BID x1 week, then increase to 2 tabs in AM and 3 tabs at bedtime x1 week , then increase to 2 tabs in AM and 4 tabs at bedtime and continue. Will convert to 250mg tabs once stabilized. -Schedule nerve block next week per patient request as she responded well to her last injections on 01/26/25. -Continue Ajovy, pt has only had 1 injection so far, due next week, tolerating well. -Continue Nortriptyline 30mg, cannot titrate up due to side effects. Would not taper off due to insomnia. Pt will try melatonin. Advised pt contact her PCP regarding management of insomnia as this can be a trigger for migraines. Would like to have her come off nortriptyline ultimately to help with nightmares. -Start Eletriptan instead of rizatriptan PRN migraine due to sedating side effects of rizatriptan. Pt aware not to take both triptans. -Continue promethazine 25mg oral tab every 6 [...] with above. Reviewed procedure with patient. F/U: 2W or sooner PRN. Patient agrees with plan. All questions and concerns addressed. Patient instructed to maintain headache logs. Patient advised to contact office for any change in headache pattern, increase in frequency, duration, or severity of headaches. Medication reconciliation completed. Previous office visit note reviewed. Patient presents for evaluation and management. Pt was seen and evaluated by Brenda GUZMAN. Pt consents to virtual visit. 03/18/2025 Trigeminal neuralgia (ICD-10 - G50.0) Patient presents for evaluation and management. Pt was seen and evaluated by Brenda GUZMAN. Pt consents to virtual visit. 02/18/2025 Chronic [...] for migraines. -Pt will email our office FMLA paperwork. -MRI and MRV scheduled 02/27/25. Given [...] f/u on PA. -Pt to look into [facility] paperwork and will call our office [...] the plan. Pt consents to virtual visit. 04/01/2025 Trigeminal neuralgia (ICD-10 - G50.0) Patient presents for evaluation and management. Pt was seen and evaluated by Brenda GUZMAN. Pt consents to virtual visit. 03/18/2025 Myalgia of auxiliary muscles, head and neck (ICD-10 - M79.12) Patient presents for evaluation and management. Pt was seen and evaluated by Brenda GUZMAN. Pt consents to virtual visit. 04/06/2025 Myalgia of auxiliary muscles, head and neck (ICD-10 - M79.12) Patient presents for evaluation and management. Pt was seen and evaluated by Brenda GUZMAN. Pt consents to virtual visit. 04/01/2025 Myalgia of auxiliary muscles, head and neck (ICD-10 - M79.12) Patient presents for evaluation and management. Pt was seen and evaluated by Brenda GUZMAN. Pt consents to virtual visit. 02/18/2025 Myalgia [...] the plan. Pt consents to virtual visit. 03/18/2025 Other See above. Advi se pt f/u with PCP regarding syncopal episodes. She has not had any further episodes since reducing nortriptyline. Patient presents for evaluation and management. Pt was seen and evaluated by Brenda GUZMAN. Pt consents to virtual visit. 08/25/2024 Patient presents for evaluation and management. Pt was seen and evaluated by Brenda GUZMAN under the direct supervision of Dr. Celestine Poole who was consulted after the visit. He agrees with the assessment and plan. Pt consents to treatment in office. Plan Of Treatment Next Appt Details Provider Name:Brenda Odonnell, Deep 05/05/2025 02:30:00 PM, [address] [place], [phone], Insurance Providers Payer Name Payer Address Payer Phone Subscriber Number Group Number Insured Name Patient Relationship to Insured Coverage Start Date Coverage End Date BC OF MD/O [address] [place], [place] [id number] Dania Ferreira Self - patient is the insured Medical (General) History Medical History History ICD Code Migraines Unknown anaphylactic allergy Insomnia Surgical History Surgery Date(Month/Year) lacrimal ducts 04/1999 [place] teeth removed Ingrown toenails Mole removal 08/19/23 Hospitalization History Reason Date(Month/Year) anaphylactic reaction 06/2022
== END 2025-04-13 12:30 | disposition home or self-care (01) ==
LOC: HO.HWS 12:03
PROVIDERS: PCP Physician Assistant; Visit Provider Advanced Practice Midwife
DX: R19.00 Intra-abdominal and pelvic swelling, mass and lump, unspecified site (principal); R39.89 Other symptoms and signs involving the genitourinary system; R39.14 Feeling of incomplete bladder emptying
CPT/HCPCS: 99213

== ENCOUNTER → 2025-04-13 12:03 | Outpatient (BNVA) | payer BC, SELFPAY | PROVIDERS: PCP Physician Assistant; Visit Provider Advanced Practice Midwife | DX: R39.89 Other symptoms and signs involving the genitourinary system (principal) | CPT/HCPCS: 81003 ==

== ENCOUNTER → 2025-05-13 15:55 | Outpatient (BNV) | payer BC, SELFPAY | PROVIDERS: Visit Provider Radiology Diagnostic Radiology | DX: R19.00 Intra-abdominal and pelvic swelling, mass and lump, unspecified site (principal) | CPT/HCPCS: 72197 ==

== ENCOUNTER 2025-05-13 15:56 | Outpatient (REF) | payer BC, SELFPAY ==
--- NOTE | ~2025-05-13 | MR_ITS ---
CLINICAL HISTORY: R19.00 - Intra-abdominal and pelvic swelling, mass and lump, unspecified... U/S in 03/2025 was negative. Per pt, the doctor felt a mass when performing exam manually in 04/2025 MRI of the pelvis with and without IV contrast. COMPARISON: US pelvis dated 04/08/25 at 14:05 EDT FINDINGS: Anteverted uterus appears normal in size. No focal uterine mass identified. Endometrium is normal in thickness with endometrial stripe measuring up to 5 mm. Multiple normal physiologic appearing follicles present on the ovaries bilaterally. Right ovary measures 2.9 x 2.1 x 2.1 cm. Left ovary measures 2.5 x 1.3 x 1.7 cm. No surrounding inflammatory changes. No adnexal mass identified. Visualized portions of the bowel in the lower abdomen/pelvis are unremarkable. No bowel obstruction. No inguinal pelvic lymphadenopathy. Visualized bones are unremarkable. No abnormal enhancement. IMPRESSION: 1. No cause for patient's symptoms identified. No uterine or adnexal mass identified. No abnormal enhancement. This document has been electronically signed by: Lamin Pappas MD on 05/13/2025 17:07:58
--- OUTSIDE RECORDS SUMMARY | 2025-05-13 16:37 | XMS_ITS | Clinical Summary ---
Author Organization [facility] [address] [place] [address] [place] [phone] Phone Care Team Providers Care Home Health Caregiver Name Role Phone Nishi Foster MD Primary [...] WISDOM TEETH EXTRACTION OTHER SURGICAL HISTORY PROCEDURE: MN WEDGE EXCISION SKIN NAIL FOLD OTHER SURGICAL HISTORY PROCEDURE: MN UNLISTED PROCEDURE LACRIMAL SYSTEM Medical History Medical [...] Upcoming Encounters Date Type Department Care Team ([facility] st Contact Info) Description 06/18/2025 3:00 PM EDT Office Visit Adult Medicine [address] [phone] Nishi Foster MD [address] [place] [phone] Health Maintenance Due Date Last Done Comments [...] Procedure Name Priority Date/Time Associated Diagnosis Comments ..LAB TO CALL RESULTS Routine 04/08/2025 3:06 PM EDT PELVIC ULTRASOUND Routine 04/08/2025 7:0 6 AM EDT EXTERNAL CLINICAL LAB 04/07/2025 LIPID PANEL Routine 06/19/2024 HM PAP SMEAR Routine 06/19/2023 from Last 3 Months or Most Recently Relevant to Health Maintenance Results * Lab use only - Non-affiliated results notification (04/08/2025 3:06 PM EDT) Other Topography unknown / Unknown [facility] LAB BLOOD ORDERABLES Amy l Result * Pelvic Ultrasound (04/08/2025 7:06 AM EDT) Result Camryn Hallie Sutherland MD IN CLINIC/BEDSIDE ORDERAB LES Final Result * External clinical lab (04/07/2025) [facility] LAB BLOOD ORDERABLES Fin al Result * Lipid panel (06/19/2024) LDL/HDL Ratio 3 0 - 4 Triglycerides 108 0 - 150 mg/dL Cholesterol 162 0 - 200 mg/dL HDL 48 >=40 mg/dL LDL Cholesterol 93 0 - 100 mg/dL Blood Venous blood specimen / Unknown Result Camryn Hallie Sutherland MD LAB BLOOD ORDERABLES Amy l Result * Pap Smear (06/19/2023) Pap smear Abstracted, No Interpretation Hallie Sutherland MD HEALTH MAINTENANCE Final Result from Last 3 Months or Most Recently Relevant to Health Maintenance Insurance [facility] Care Teams Home Health Caregiver Relationship Specialty Start Date End Date Nishi Foster MD PCP - General Internal Medicine 06/18/22
--- OUTSIDE RECORDS SUMMARY | 2025-05-13 16:37 | XMS_ITS | Patient Health Record ---
Author Organization [facility] kelvin [place] Address [address] [facility] [place] [address] Care Team Providers Care Box Toe Cementer Name Role Phone Coral aLwrence MD Primary Care Provider Hiral Treviño Unavailable [phone] Reason For Referral No Information Medications Medication [...] Problem Plantarflexion deformity of right foot (finding) (3029183118205901) Equinus contracture of right ankle (M24.571) Active confirmed Plan Of Treatment Pending Test Test Name Order Date X ray : Foot, right 3V 02/05/2017 [id number] Plate 07/20/2015 [id number] Plate 08/03/2015 [id number] Plate 11/19/2016 [id number] 02/05/2017 [id number] 09/17/2017 43208- Debride <25 sq cm 10/02/2017 23336- Debride <25 sq cm 02/19/2017 Insurance Providers Payer Name Payer Address Payer Phone Subscriber Number Group Number Insured Name Patient Relationship to Insured Coverage Start Date Coverage End Date [employer] ([facility]) [address] [place] [id number] Dania Ferreira Self - patient is the insured Medical (General) History Medical History History ICD Code Chicken pox Warts Surgical History Surgery Date(Month/Year) eye surgery, tear ducs Ingrown Toe Nail NICHOLAS great toes 09/17/17
--- OUTSIDE RECORDS SUMMARY | 2025-05-13 16:38 | XMS_ITS | Patient Health Record ---
Author Organization [facility] Address [address] [place] [address] Care Team Providers Care Hat Braider Name Role Phone Nishi Thomson Primary Care Provider Celestine Sutherland Unavailable [phone] Brenda Odonnell Unavailable [phone] Allergies Allergen (clinical drug ingredient) Drug/Non Drug Allergy documented on EMR Reaction Allergy Type Onset Date Status Gluten Gluten Unknown Allergy Active lactose Lactose (Intolerance) Unknown Drug Allergy Active No Known Drug Allergy Unknown Drug Allergy Active Reason For Referral Reason OFFICE VISIT Diagnosis 1 Migraine without aur a, not intractable, without status migrainosus (G43.009) Referred Organization [employer] Referred Provider Celestine Poole Referred Address [address] [place], [place],[address], Referred Provider Specialty Neurology Referral Priority Routine Medications Medication SIG (Take, Route, Frequency, Duration) Notes Start Date End Date Status Nurtec 75 MG 1 tablet on the tongue and allow to dissolve Orally every other day; Duration: 30 days May take up to 18 tabs per month Active Depo-Provera 150 MG/ML 1 ml Intramuscular Active predniSONE 20 MG As directed, every morning with food. Orally 3 tabs for 4 days, 2 tabs for 4 days, 1 tab for 4 days, 1/2 tab for 4 days.; Duration: 30 days Not-Taking Famotidine 40 MG 1 tablet Orally Twice a day PRN Active Ondansetron HCl 8 MG 1 tablet as needed Orally q6h prn nausea; Duration: 30 day(s) PRN Not-Taking Xolair 150 MG/ML 2 injections Subcutaneous once per month per parachute manufacturing supervisor 12/27/2022 Active acetaZOLAMIDE 250 MG 2 tablets Orally twice a day; Duration: 90 days Active ZyrTEC Allergy 10 MG 1 tablet Orally at bedtime Active Ajovy 225 MG/1.5ML Inject 1 autoinjector Subcutaneous q27-30 days; Duration: 90 days Active Acetaminophen Extra Strength 500 MG 1 tablet as needed Orally every 6 hrs PRN Active Promethazine HCl 25 MG 1 tablet as needed Orally every 6 hours; Duration: 30 days Monitor for drowsiness. OK to take with ondansetron as needed Not-Taking Nortriptyline HCl 10 MG 3 capsules Oral Once a day at bedtime; Duration: 90 days Active Ibuprofen Childrens 100 MG/5ML 20 ml with food or milk as needed Orally prn headache difficulty swallowing pills Active Eletriptan Hydrobromide 40 MG 1/2 tablet to 1 tablet at onset of migraine with 2 tabs Ibuprofen Orally as needed, may repeat 2nd tab 2 hours later if migraine persists; Duration: 30 days Do not combine triptans Stopping rizatriptan Not-Taking Rizatriptan Benzoate 10 MG 1/2 to 1 tablet along with 2 tabs ibuprofen Oral as needed at onset of migraine. May repeat once after 2 hrs if headache returns.; Duration: 30 days PRN 06/27/2021 Active EPINEPHrine (Anaphylaxis) 30 MG/30ML as directed Injection As needed for anaphylaxis per parachute manufacturing supervisor 01/10/2023 Active predniSONE 20 MG standing order as directed Orally As needed per parachute manufacturing supervisor 01/10/2023 Not-Taking Ondansetron 8 MG 1 tablet on the tongue and allow to dissolve as needed Orally Once a day for nausea; Duration: 30 days Active Social History Tobacco Use: Social History [...] Partial bedrest 1-2 days. 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 Partial days missed, 6-10 days. Days of bedrest in last 1 month: Full bed rest 1-to days. Partial bedrest 1-2 days. Works at an [employer], in school, studying accounting no smoking Level of disability Work loss in last 3 months: 1 day missed Days of bedrest in last 3 months: Full bed rest 1 day. Works at an [employer], in school, studying accounting no smoking Level of disability Work loss in last 3 months: 1 day missed Days of bedrest in last 3 months: Full bed rest 1 day. Works at an [employer], in school, studying accounting no smoking Level of disability Work loss in last 3 months: 1 day missed Days of bedrest in last 3 months: Full bed rest 1 day. Works at an [employer], in school, studying accounting no smoking Level of disability Work loss in last 3 months: 1 day missed Days of bedrest in last 3 months: Full bed rest 1 day. 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 Partial days missed, 6-10 days. Days of bedrest in last 1 month: Full bed rest 1-to days. Partial bedrest 1-2 days. 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, Problems Problem Type SNOMED Code ICD Code Onset Dates Problem Status W/U Status Risk Notes Problem Migraine without aura, not refractory (938719206) Migraine without aura, not intractable, without status migrainosus (G43.009) Active confirmed Problem Refractory migraine without aura (016866611) Migraine without aura, intractable, without status migrainosus (G43.019) Active confirmed Problem Chronic intractable migraine without aura (678108197027652) Chronic migraine without aura, intractable, without status migrainosus (G43.719) Active confirmed Problem Insomnia (353770800) Insomnia, unspecified (G47.00) Active confirmed Problem Trigeminal neuralgia (23899220) Trigeminal neuralgia (G50.0) Active confirmed Problem Occipital neuralgia (68108465) Occipital neuralgia (M54.81) Active confirmed Problem Screening for cardiovascular system disease (395993345) Encounter for screening for cardiovascular disorders (Z13.6) Active confirmed Problem Myalgia of auxiliary muscles, 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) Active confirmed Vital Signs Heart Rate 104 /min 05/05/2025 Blood pressure diastolic 80 mm Hg 05/05/2025 Weight-kg 57.06 kg 05/05/2025 Height 64 in 05/05/2025 Blood pressure systolic 98 mm Hg 05/05/2025 Weight 125.8 lbs 05/05/2025 BMI 21.59 kg/m2 05/05/2025 Encounters Encounter Location Date [facility] [address] [place] [phone] 07/14/2024 Brenda Jaegnahid Migraine without aur a, intractable, without status migrainosus G43.019 and Occipital neuralgia M54.81 [facility] [address] [place] [phone] 12/29/2024 Celestine Baileyley Occipital neuralgia M54.81 ; Trigeminal neuralgia G50.0 ; Myalgia of auxiliary muscles, head and neck M79.12 and Chronic migraine without aura, intractable, without status migrainosus G43.719 [facility] [address] [place] [phone] 07/21/2024 Celestine Poole Migraine without aur a, intractable, without status migrainosus G43.019 ; Occipital neuralgia M54.81 and Myalgia of auxiliary muscles, head and neck M79.12 [facility] [address] [place] [phone] 08/20/2024 Celestine Poole Migraine without aur a, intractable, without status migrainosus G43.019 ; Occipital neuralgia M54.81 ; Trigeminal neuralgia G50.0 and Myalgia of auxiliary muscles, head and neck M79.12 [facility] [address] [place] [phone] 01/11/2025 Brenda Blas Occipital neuralgia M54.81 ; Chronic migraine without aura, intractable, without status migrainosus G43.719 ; Trigeminal neuralgia G50.0 and Myalgia of auxiliary muscles, head and neck M79.12 [facility] [address] [place] [phone] 01/21/2025 Brenda Jaegle Occipital neuralgia M54.81 ; Chronic migraine without aura, intractable, without status migrainosus G43.719 ; Trigeminal neuralgia G50.0 and Myalgia of auxiliary muscles, head and neck M79.12 [facility] [address] [place] [phone] 01/26/2025 Brenda Jaegle Occipital neuralgia M54.81 ; Chronic migraine without aura, intractable, without status migrainosus G43.719 ; Trigeminal neuralgia G50.0 ; Myalgia of auxiliary muscles, head and neck M79.12 and Encounter for screening for cardiovascular disorders Z13.6 [facility] [address] [place] [phone] 02/04/2025 Brenda Jaegle Occipital neuralgia M54.81 ; Chronic migraine without aura, intractable, without status migrainosus G43.719 ; Trigeminal neuralgia G50.0 ; Myalgia of auxiliary muscles, head and neck M79.12 and Syncope and collapse R55 [facility] [address] [place] [phone] 02/18/2025 Brenda Jaegle Occipital neuralgia M54.81 ; Chronic migraine without aura, intractable, without status migrainosus G43.719 ; Trigeminal neuralgia G50.0 ; Myalgia of auxiliary muscles, head and neck M79.12 and Syncope and collapse R55 [facility] [address] [place] [phone] 03/18/2025 Brenda Jaegle Occipital neuralgia M54.81 ; Chronic migraine without aura, intractable, without status migrainosus G43.719 ; Trigeminal neuralgia G50.0 and Myalgia of auxiliary muscles, head and neck M79.12 [facility] [employer] [address] [place] [phone] 04/01/2025 Brenda Jaegle Occipital neuralgia M54.81 ; Chronic migraine without aura, intractable, without status migrainosus G43.719 ; Trigeminal neuralgia G50.0 and Myalgia of auxiliary muscles, head and neck M79.12 [facility] [employer] [employer] [address] [place] [address] 04/06/2025 Celestine Poole Occipital neuralgia M54.81 ; Chronic migraine without aura, intractable, without status migrainosus G43.719 ; Trigeminal neuralgia G50.0 and Myalgia of auxiliary muscles, head and neck M79.12 [facility] [address] [place] [phone] 05/05/2025 Brenda Odonnell Occipital neuralgia M54.81 ; Chronic migraine without aura, intractable, without status migrainosus G43.719 ; Trigeminal neuralgia G50.0 and Myalgia of auxiliary muscles, head and neck M79.12 [facility] [address] [place] [phone] 07/14/2024 Celestine Poole [facility] [address] [place] [phone] 07/14/2024 Brenda Odonnell [facility] [address] [place] [phone] 01/19/2025 Celestine Poole [facility] [address] [place] [phone] 01/20/2025 [facility] [address] [place] [phone] [facility] [address] [place] [phone] 02/10/2025 [facility] [address] [place] [phone] 02/10/2025 [facility] [address] [place] [phone] 02/18/20[facility] [address] [place] [phone] 02/18/2025 [facility] [address] [place] [phone] 03/04/2025 Celestine Poole Assessments Encounter Date Diagnosis [...] Brenda GUZMAN. Pt consents to virtual visit. 05/05/2025 Occipital neuralgia (ICD-10 - M54.81) Patient presents for evaluation and management. Pt was seen and evaluated by Brenda GUZMAN under the supervision of Dr. Celestine Poole who was in the office at the time of the visit and available for consultation as needed. Pt consents to treatment in office. 05/05/2025 Chronic migraine without aura, intractable, without status migrainosus (ICD-10 - G43.719) Pt with improvement in migraine severity and respond to rescue medications since starting Ajovy and increasing acetazolamide. She does continue with daily migraines but severity has reduced to 4/10 on average. Will not increase acetazolamide further due to decreased appetite and 6lb weight loss over the past month, possibly a side effect. Will have pt f/u in 1 month and check weight. She did have a nerve block today which she has been responding well too. -Continue Acetazolamide 500mg BID, sent in 250mg tabs, pt will take 2 twice a day. -Plan to repeat nerve block next month . -Continue Ajovy, pt has only had 3 injections so far, due next week, tolerating well. -Continue Nortriptyline 30mg, cannot titrate up due to side effects. Would not taper off due to insomnia and pt feels it is helping. Continue Melatonin. Would like to have her come off nortriptyline ultimately to help with nightmares. -Continue Rizatriptan 1/2 tab to 1 tab. Will give her Ubrelvy samples to try instead. Patient information handout provided and instructed on use. -Continue promethazine 25mg oral tab every 6 hours for nausea and vomiting. -Continue Nurtec every other day, advised to take additional 2 tabs per month as abortive, samples given at last visit. NTE 1 tab in 24h. -Continue ondansetron dissolvable tabs due to vomiting. OK to take prior to promethazine if needed -Consider addition of Gabapentin or Botox if no improvement with above. Reviewed procedure with patient at last visit. F/U:4W for nerve block and evaluate pain. Patient agrees with plan. All questions and [...] needed. Pt consents to treatment in office. 04/06/2025 Trigeminal neuralgia (ICD-10 - G50.0) Patient [...] father where he went to see a undergraduate advisor and will plan to refer there for [...] f/u on PA. -Pt to look into [facility] paperwork and will call our office [...] Brenda GUZMAN. Pt consents to virtual visit. 05/05/2025 Trigeminal neuralgia (ICD-10 - G50.0) Patient presents for evaluation and management. Pt was seen and evaluated by Brenda GUZMAN under the supervision of Dr. Celestine Poole who was in the office at the time of the visit and available for consultation as needed. Pt consents to treatment in office. 04/06/2025 Myalgia of auxiliary muscles, head and [...] plan. Pt consents to treatment via telehealth. 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 Pt was seen and evaluated by Brenda GUZMAN under the supervision of Dr. Celestine Poole who was in the office at the time of the visit and available for consultation as needed. Pt consents to treatment in office. 02/18/2025 Syncope and collapse (ICD-10 - R55) [...] Treatment Next Appt Details Provider Name:Brenda Blas, Deep 06/02/2025 02:00:00 PM, [address] [place] [address], [phone], Insurance Providers Payer Name Payer Address Payer Phone Subscriber Number Group Number Insured Name Patient Relationship to Insured Coverage Start Date Coverage End Date [employer] [place] [address] [place], [place] [id number] Dania Ferreira Self - patient is the insured Medical (General) History Medical History History ICD Code Migraines Unknown anaphylactic allergy Insomnia Surgical History Surgery Date(Month/Year) lacrimal ducts 04/1999 [place] teeth removed Ingrown toenails Mole removal 08/19/23 Hospitalization History Reason Date(Month/Year) anaphylactic reaction 06/2022
== END 2025-05-13 15:57 | disposition home or self-care (01) ==
LOC: HO.MRI 15:56
PROVIDERS: Visit Provider Advanced Practice Midwife
DX: R19.00 Intra-abdominal and pelvic swelling, mass and lump, unspecified site (principal)
CPT/HCPCS: 72197; A9585

== ENCOUNTER 2025-06-02 09:28 | Outpatient (REF) | payer BC, SELFPAY ==
[2025-06-02 16:49] LABS: Bacterial Vaginosis PCR POSITIVE (Negative); Candida Group PCR DETECTED (Not Detect); Candida glab krusei PCR NOT DETECTED (Not Detect); Trichomonas vaginalis PCR NOT DETECTED (Not Detect)
[2025-06-02 17:18] LABS: CT PCR NOT DETECTED (Not Detect.); NG PCR NOT DETECTED (Not Detect.)
== END 2025-06-02 09:29 | disposition home or self-care (01) ==
LOC: HO.LNP 09:28
PROVIDERS: Visit Provider Advanced Practice Midwife
DX: N89.8 Other specified noninflammatory disorders of vagina (principal); R30.0 Dysuria; R35.0 Frequency of micturition; Z20.2 Contact with and (suspected) exposure to infections with a predominantly sexual mode of transmission; Z71.2 Person consulting for explanation of examination or test findings
CPT/HCPCS: 81515; 87086; 87088; 87186; 87491; 87591

== ENCOUNTER 2025-06-02 09:28 | Outpatient (AMB) | payer BC, SELFPAY ==
[2025-06-02 09:38] VITALS: BP 114/62
--- NOTE | 2025-06-02 09:38 | MHC.OFFVIS ---
Vital Signs 06/02/25 09:38 Height 5 ft 4 in BP 114/62 Blood Pressure Location Rt brachial Position Sitting Intake Visit Reasons: MRI Results Allergies No Known Allergies Allergy (Verified 04/07/25 14:25) HPI Comments Details: Patient is here today for a follow up MRI results, history posterior pelvic mass noted with last exam not found on prior ultrasound. She denies any pelvic pain, admits to dysuria and frequency today, I think I have a UTI . 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 Sexual orientation: Straight/Heterosexual Gender identity: Female Review of Systems Const All systems reviewed & are unremarkable except as noted in HPI and below Physical Exam Vital Signs: Last Vital Signs BP 114/62 06/02/25 09:38 Const General: cooperative, healthy appearing and no acute distress Orientation/consciousness: patient oriented x3 GI Inspection: Yes normal to inspection Palpation (GI): Soft to palpation and Other GI palpation findings present (Nontender) Rectal Exam - Female: visual inspection normal General: Yes bladder normal to palpation External Female Exam: normal appearance of the urethra Speculum Exam - Vagina: normal appearance of the vagina, normal palpation and abnormal vaginal discharge (large amt. milky) Speculum Exam - Cervix: normal appearance of the cervix and normal palpation Bimanual exam- vagina & uterus: normal bimanual exam, normal palpation, uterine size normal, bladder normal to palpation, normal palpation, uterine shape normal and non-tender Bimanual Exam- Adnexa, other: normal adnexae Neuro General: patient oriented x3 Results AMB Urinalysis Automated WC UR Glucose Last Edit by Soila Huang LPN on 06/02/25 10:40 UR Ketone Small Last Edit by Soila Huang, CONSTRUCTION SAFETY CONSULTANT on 06/02/25 10:40 UR Specific [place] 1.010 Last Edit by Soila Huang, CONSTRUCTION SAFETY CONSULTANT on 06/02/25 10:40 UR Blood Negative Last Edit by Soila Huang, CONSTRUCTION SAFETY CONSULTANT on 06/02/25 10:40 UR Ph 7.5 Last Edit by Soila Huang, CONSTRUCTION SAFETY CONSULTANT on 06/02/25 10:40 UR Protein Negative Last Edit by Soila Huang, CONSTRUCTION SAFETY CONSULTANT on 06/02/25 10:40 UR Nitrite Negative Last Edit by Soila Huang, CONSTRUCTION SAFETY CONSULTANT on 06/02/25 10:40 UR Leukocytes Small Last Edit by Soila Huang, CONSTRUCTION SAFETY CONSULTANT on 06/02/25 10:40 Results Reviewed Results Reviewed: Laboratory Last Values Urine pH (Clinic) 7.5 06/02/25 10:39 Specific [place] (Clinic) 1.010 06/02/25 10:39 Ur Protein (Clinic) Negative 06/02/25 10:39 Ur Ketones (Clinic) Small 06/02/25 10:39 Urine Blood (Clinic) Negative 06/02/25 10:39 Urine Nitrite Negative 06/02/25 10:39 Leukocyte Esterase (Clinic) Small 06/02/25 10:[address] [address] Magnetic Resonance Report Signed Patient: Dania Ferreira MR#: [id number] : 2000 Acct:[id number] Age/Sex: 25 / F ADM Date: 05/13/25 Loc: HO.MRI Attending Dr: Keara Lutz CNM Ordering Physician: Keara Lutz CNM Date of Service: 05/13/25 Procedure(s): MR pelvis wo/w con Accession Number(s): [id number] cc: Keara Lutz CNM~ Reason for Exam: R19.00 - Intra-abdominal and pelvic swelling, mass and lump, unspecified... CLINICAL HISTORY: R19.00 - Intra-abdominal and pelvic swelling, mass and lump, unspecified... U/S in 03/2025 was negative. Per pt, the doctor felt a mass when performing exam manually in 04/2025 MRI of the pelvis with and without IV contrast. COMPARISON: US pelvis dated 04/08/25 at 14:05 EDT FINDINGS: Anteverted uterus appears normal in size. No focal uterine mass identified. Endometrium is normal in thickness with endometrial stripe measuring up to 5 mm. Multiple normal physiologic appearing follicles present on the ovaries bilaterally. Right ovary measures 2.9 x 2.1 x 2.1 cm. Left ovary measures 2.5 x 1.3 x 1.7 cm. No surrounding inflammatory changes. No adnexal mass identified. Visualized portions of the bowel in the lower abdomen/pelvis are unremarkable. No bowel obstruction. No inguinal pelvic lymphadenopathy. Visualized bones are unremarkable. No abnormal enhancement. IMPRESSION: 1. No cause for patient's symptoms identified. No uterine or adnexal mass identified. No abnormal enhancement. This document has been electronically signed by: Lamin Pappas MD on 05/13/2025 17:07:58 Dictated By: Lamin Pappas MD Signed By: <Electronically signed by Lamin Pappas MD in OV> 05/13/251707 DD/ 06 TD/TT: 05/13/251706 [place] [employer] Operator: Assessment & Plan Assessment & Plan (1) Vaginal discharge: Code(s): N89.8 - Other specified noninflammatory disorders of vagina Plan: BV GC and chlamydia obtained, await results for final plan of care. (2) Dysuria: Code(s): R30.0 - Dysuria Plan: See plan below. (3) Urine frequency: Code(s): R35.0 - Frequency of micturition Plan: UA obtained, culture obtained, await results for final plan of care. Advised to hydrate well, warnings reviewed and when to seek emergent care. The patient expressed understanding and agreement with the plan of care. All of her questions and concerns were addressed to the best of my ability. (4) Encounter to discuss test results: Code(s): Z71.2 - Person consulting for explanation of examination or test findings Plan Discussed: MR findings- IMPRESSION: 1. No cause for patient's symptoms identified. No uterine or adnexal mass identified. No abnormal enhancement. Normal exam today. Unknown source of prior findings. The patient expressed understanding and agreement with the plan of care. All of her questions and concerns were addressed to the best of my ability. This note is constructed using voice recognition software. While every effort has been made to ensure accuracy, church warden errors may have been included. Orders: Orders CT NG by PCR Vag/Cerv Today N89.8 - Other specified noninflammatory disorders of vagina, R30.0 - Dysuria Bacterial Vaginosis Panel Today N89.8 - Other specified noninflammatory disorders of vagina, R30.0 - Dysuria Urine Culture Today R30.0 - Dysuria Coding Level of Care Code Est Pt Level 3 (88497) Diagnoses Vaginal discharge N89.8 Dysuria R30.0 Urine frequency R35.0 Encounter to discuss test results Z71.2
--- OUTSIDE RECORDS SUMMARY | 2025-06-02 11:19 | XMS_ITS | Encounter Summary ---
Author Organization [facility] Address [id number] [place] [id number] Care Team Providers Care Operating Room Registered Nurse Name Role Phone Nishi Foster MD Primary Care Prov ider Reason for Referral * Consultation (Routine) - Closed Specialty Diagnoses / Procedures Referred By Navdeep garcia Referred To Contact Dermatology Diagnoses Neoplasm of uncertain behavior of skin Nishi Foster MD [address] [place] [address] Phone: tel: fax: Cleo Rosas PA [facility] [address] [place] [id number] Phone: tel: fax: Referral ID Status Reason Start Date Expiration Date V isits Requested Visits Authorized [id number] Closed Specialty Services Required 05/04/2025 05/04/2026 6 6 Encounter Details Date Type Department Care Team (Late st Contact Info) Description 05/18/2025 Telephone Adult Medicine [address] [phone] Nishi Foster MD [address] [place] [address] Social History Tobacco Use Types Packs/Day Years Used Date Smoking Tobacco: Never Smokeless Tobacco: Never Alcohol Use Standard Drinks/Week Comments No 0 (1 standard drink = 0.6 oz pur e alcohol) Comments Unknown Sex and Gender Information Value Date Recorded Sex Assigned at Not on file Legal Sex Female 11:01 AM EST Gender Identity Not on file Sexual Orientation Not on file documented as of this encounter Progress Notes * Gardenia Rachel - 05/18/2025 11:56 AM EDT Copied from [facility] #[id number]. Topic: Referral - Request >> May 18, 2025 11:55 AM Gardenia Rankin wrote: Nishi called requesting a dermatology referral What insurance does the patient have today? Payor: @[email or web address] Referrals cannot be processed if the insurance is not accurate. If the insurance listed above is NO BILLING INFORMATION FOUND FOR THIS ENCOUNTER then the patients correct insurance must be obtainedand registered in [facility] or their referral can not be processed. Name of person calling to request this referral? Maria Referred To Provider (Include first and last name): Cleo Rosas NPI (if known): [phone] Order/Specialty requested Dermatology Chief Complaint (Note: This is not a body part or a procedure): D48.5 Has the patient seen provider for this problem/Dx before? No Referred To Provider Address: [address] [place] [address] Referred To Provider Referred To Provider Does patient have an appointment scheduled?: yes If yes, what is the date of the appointment?: 05/04/2025 Is this a retro request? yes Number of visits requested: 6 Is this appointment related to: MVA or worker compensation? No documented in this encounter Plan of Treatment Scheduled Referrals Name Type Priority Associated Diagnoses Order Schedule Ambulatory referral to Dermatology Outpatient Referral Routine Neoplasm of uncertain behavior of skin Expected: 05/18/2025, Expires: 05/18/2026 documented as of this encounter Visit Diagnoses Diagnosis Neoplasm of uncertain behavior of skin- Primary documented in this encounter Care Teams Operating Room Registered Nurse Relationship Specialty Start Date End Date Nishi Foster MD PCP - General Internal Medicine 06/18/22 documented as of this encounter
--- OUTSIDE RECORDS SUMMARY | 2025-06-02 11:19 | XMS_ITS | Patient Health Record ---
Author Organization [facility] [place] Address [address] [place] [address] Care Team Providers Care Crop Adjuster Name Role Phone Coral Lawrence MD Primary Care Provider Hiral Treviño Unavailable [phone] Reason For Referral No Information Medications Medication [...] Problem Plantarflexion deformity of right foot (finding) (9268108422015658) Equinus contracture of right ankle (M24.571) Active confirmed Plan Of Treatment Pending Test Test Name Order Date X ray : Foot, right 3V 02/05/2017 [id number] Plate 07/20/2015 [id number] Plate 08/03/2015 [id number] Plate 11/19/2016 [id number] 02/05/2017 [id number] 09/17/2017 28155- Debride <25 sq cm 10/02/2017 17451- Debride <25 sq cm 02/19/2017 Insurance Providers Payer Name Payer Address Payer Phone Subscriber Number Group Number Insured Name Patient Relationship to Insured Coverage Start Date Coverage End Date [facility] [address] [place] [id number] Dania Ferreira Self - patient is the insured Medical (General) History Medical History History ICD Code Chicken pox Warts Surgical History Surgery Date(Month/Year) eye surgery, tear ducs Ingrown Toe Nail NICHOLAS great toes 09/17/17
--- OUTSIDE RECORDS SUMMARY | 2025-06-02 11:19 | XMS_ITS | Clinical Summary ---
Author Organization [address] Address [address] [place] [phone] Phone Care Team Providers Care Stock Preparation Operator Name Role Phone Nishi Foster MD Primary [...] Encounters Date Type Department Care Team Description 05/18/2025 Telephone Adult Medicine [address] [place] [address] Nishi Foster MD from Last 3 Months Immunizations Name Administration Dates Next Due Influenza Quadravalent, MDCK , 0.5ml, preservative free (Flucelvax) 6mo and older 06/13/2021 Tdap Tetanus diptheria acell ular pertussis (Boostrix; Adacel) 7yo and older 08/25/2020 Surgical History Surgery Date Site/Laterality Comments WISDOM TOOTH EXTRACTION PROCEDURE: HISTORICAL WISDOM TEETH EXTRACTION OTHER SURGICAL HISTORY PROCEDURE: [place] WEDGE EXCISION SKIN NAIL FOLD OTHER SURGICAL HISTORY PROCEDURE: [place] UNLISTED PROCEDURE LACRIMAL SYSTEM Medical History Medical [...] 06/19/2024 7:43 AM EDT Plan of Treatment Health Maintenance Due Date Last Done Comments Hepatitis B Vaccines (1 of 3 - 19+ 3-dose series) 2017 HIV Screening 08/18/2022 Hepatitis C Screening 08/18/2022 Social Influencers of Health Screening 08/18/2022 Depression Screening 09/09/2024 COVID-19 Vaccine (3 - 2024-2 6 season) 2025 10/04/2020, 09/13/2020 Influenza Vaccine (#1) 2025 06/13/2021 Cervical Cancer [...] PM EDT) Other Topography unknown / Unknown [facility] Provider LAB BLOOD ORDERABLES Amy l Result * Pelvic Ultrasound (04/08/2025 7:06 AM EDT) [facility] Koko PORTILLO IN CLINIC/BEDSIDE ORDERAB LES Final Result * External clinical lab (04/07/2025) Koko [facility] LAB BLOOD ORDERABLES Fin al Result * Lipid panel (06/19/2024) LDL/HDL Ratio 3 0 - 4 Triglycerides 108 0 - 150 mg/dL Cholesterol 162 0 - 200 mg/dL HDL 48 >=40 mg/dL LDL Cholesterol 93 0 - 100 mg/dL Blood Venous blood specimen / Unknown Result [facility] Provider LAB BLOOD ORDERABLES Amy l Result * Hm Pap Smear (06/19/2023) Pap smear Abstracted, No Interpretation [facility] Koko PORTILLO HEALTH MAINTENANCE Final Result from Last 3 Months or Most Recently Relevant to Health Maintenance Insurance [facility] Care Teams Stock Preparation Operator Relationship Specialty Start Date End Date Nishi Foster MD PCP - General Internal Medicine 06/18/22
--- OUTSIDE RECORDS SUMMARY | 2025-06-02 11:19 | XMS_ITS | Patient Health Record ---
Author Organization [facility] Address [address] [place] [address] Care Team Providers Care Pole Peeler Name Role Phone Nishi Thomson Primary Care Provider Celestine Sutherland Unavailable [phone] Brenda Odonnell Unavailable [phone] Allergies Allergen (clinical drug ingredient) Drug/Non Drug Allergy documented on EMR Reaction Allergy Type Onset Date Status Gluten Gluten Unknown Allergy Active lactose Lactose (Intolerance) Unknown Drug Allergy Active No Known Drug Allergy Unknown Drug Allergy Active Reason For Referral Reason OFFICE VISIT Diagnosis 1 Migraine without aur a, not intractable, without status migrainosus (G43.009) Referred Organization [facility] Referred Provider Celestine Poole Referred Address [address] [place], [place],[address], Referred Provider Specialty Neurology Referral Priority Routine [...] 2 injections Subcutaneous once per month per automatic pattern edger 12/27/2022 Active acetaZOLAMIDE 250 MG 2 tablets [...] directed Injection As needed for anaphylaxis per automatic pattern edger 01/10/2023 Active predniSONE 20 MG standing order as directed Orally As needed per automatic pattern edger 01/10/2023 Not-Taking Ondansetron 8 MG 1 tablet [...] Partial bedrest 1-2 days. Works at an [employer] 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 Partial days missed, 6-10 days. Days of bedrest in last 1 month: Full bed rest 1-to days. Partial bedrest 1-2 days. Works at an [employer], in school, studying accounting no smoking Level of disability Work loss in last 3 months: 1 day missed Days of bedrest in last 3 months: Full bed rest 1 day. Works at an [employer], in school, studying accounting no smoking Level of disability Work loss in last 3 months: 1 day missed Days of bedrest in last 3 months: Full bed rest 1 day. Works at an [employer], in school, studying accounting no smoking Level of disability Work loss in last 3 months: 1 day missed Days of bedrest in last 3 months: Full bed rest 1 day. Works at an [employer], in school, studying accounting no smoking Level of disability Work loss in last 3 months: 1 day missed Days of bedrest in last 3 months: Full bed rest 1 day. 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 Partial days missed, 6-10 days. Days of bedrest in last 1 month: Full bed rest 1-to days. Partial bedrest 1-2 days. 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, Problems Problem Type SNOMED Code ICD Code Onset Dates Problem Status W/U Status Risk Notes Problem Migraine without aura, not refractory (506115831) Migraine without aura, not intractable, without status migrainosus (G43.009) Active confirmed Problem Refractory migraine without aura (698497588) Migraine without aura, intractable, without status migrainosus (G43.019) Active confirmed Problem Chronic intractable migraine without aura (105037892160422) Chronic migraine without aura, intractable, without status migrainosus (G43.719) Active confirmed Problem Insomnia (666764755) Insomnia, unspecified (G47.00) Active confirmed Problem Trigeminal neuralgia (37475679) Trigeminal neuralgia (G50.0) Active confirmed Problem Occipital neuralgia (85036943) Occipital neuralgia (M54.81) Active confirmed Problem Screening for cardiovascular system disease (668693945) Encounter for screening for cardiovascular disorders (Z13.6) Active confirmed Problem Myalgia of auxiliary muscles, 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) Active confirmed Vital Signs Heart Rate 104 /min 05/05/2025 Blood pressure diastolic 80 mm Hg 05/05/2025 Weight-kg 57.06 kg 05/05/2025 Height 64 in 05/05/2025 Blood pressure systolic 98 mm Hg 05/05/2025 Weight 125.8 lbs 05/05/2025 BMI 21.59 kg/m2 05/05/2025 Encounters Encounter Location Date [facility] [address] [place] [phone] 07/14/2024 Brenda Jaegnahid Migraine without aur a, intractable, without status migrainosus G43.019 and Occipital neuralgia M54.81 [facility] [address] [place] [phone] 12/29/2024 Celestine Baileyley Occipital neuralgia M54.81 ; Trigeminal neuralgia G50.0 ; Myalgia of auxiliary muscles, head and neck M79.12 and Chronic migraine without aura, intractable, without status migrainosus G43.719 [facility] [address] [place] [phone] 07/21/2024 Celestine Poole Migraine without aur a, intractable, without status migrainosus G43.019 ; Occipital neuralgia M54.81 and Myalgia of auxiliary muscles, head and neck M79.12 [facility] [address] [place] [phone] 08/20/2024 Celestine Poole Migraine without aur a, intractable, without status migrainosus G43.019 ; Occipital neuralgia M54.81 ; Trigeminal neuralgia G50.0 and Myalgia of auxiliary muscles, head and neck M79.12 [facility] [address] [place] [phone] 01/11/2025 Brenda Blas Occipital neuralgia M54.81 ; Chronic migraine without aura, intractable, without status migrainosus G43.719 ; Trigeminal neuralgia G50.0 and Myalgia of auxiliary muscles, head and neck M79.12 [facility] [employer] [address] [place] [phone] 01/21/2025 Brenda Jaegle Occipital neuralgia M54.81 ; Chronic migraine without aura, intractable, without status migrainosus G43.719 ; Trigeminal neuralgia G50.0 and Myalgia of auxiliary muscles, head and neck M79.12 [facility] [employer] [address] [place] [phone] 01/26/2025 Brenda Jaegle Occipital neuralgia M54.81 ; Chronic migraine without aura, intractable, without status migrainosus G43.719 ; Trigeminal neuralgia G50.0 ; Myalgia of auxiliary muscles, head and neck M79.12 and Encounter for screening for cardiovascular disorders Z13.6 [facility] [address] [place] [phone] 02/04/2025 Brenda Jaegle Occipital neuralgia M54.81 ; Chronic migraine without aura, intractable, without status migrainosus G43.719 ; Trigeminal neuralgia G50.0 ; Myalgia of auxiliary muscles, head and neck M79.12 and Syncope and collapse R55 [facility] [employer] [address] [place] [phone] 02/18/2025 Brenda Jaegle Occipital neuralgia M54.81 ; Chronic migraine without aura, intractable, without status migrainosus G43.719 ; Trigeminal neuralgia G50.0 ; Myalgia of auxiliary muscles, head and neck M79.12 and Syncope and collapse R55 [facility] [address] [place] [phone] 03/18/2025 Brenda Jaegle Occipital neuralgia M54.81 ; Chronic migraine without aura, intractable, without status migrainosus G43.719 ; Trigeminal neuralgia G50.0 and Myalgia of auxiliary muscles, head and neck M79.12 [facility] [address] [place] [phone] 04/01/2025 Brenda Jaegle Occipital neuralgia M54.81 ; Chronic migraine without aura, intractable, without status migrainosus G43.719 ; Trigeminal neuralgia G50.0 and Myalgia of auxiliary muscles, head and neck M79.12 [facility] [address] [place] [address] 04/06/2025 Celestine Poole Occipital neuralgia M54.81 ; Chronic migraine without aura, intractable, without status migrainosus G43.719 ; Trigeminal neuralgia G50.0 and Myalgia of auxiliary muscles, head and neck M79.12 [facility] [address] [place] [phone] 05/05/2025 Brenda Odonnell Occipital neuralgia M54.81 ; Chronic migraine without aura, intractable, without status migrainosus G43.719 ; Trigeminal neuralgia G50.0 and Myalgia of auxiliary muscles, head and neck M79.12 [facility] [address] [place] [phone] 07/14/2024 Celestine Poole [facility] [address] [place] [phone] 07/14/2024 Brenda Odonnell [facility] [address] [place] [phone] 01/19/2025 Celestine Poole [facility] [address] [place] [phone] 01/20/2025 [facility] [address] [place] [phone] 02/03/2025 [facility] [address] [place] [phone] 02/10/2025 [facility] [address] [place] [phone] 02/10/2025 [facility] [address] [place] [phone] 02/18/2025 [facility] [address] [place] [phone] 02/18/2025 [facility] [address] [place] [phone] 03/04/2025 Celestine Poole Assessments Encounter Date Diagnosis [...] and evaluated by Brenad GUZMAN under the supervision of Dr. Celestine [...] father where he went to see a gta and will plan to refer there for [...] f/u on PA. -Pt to look into [facility] paperwork and will call our office [...] management. Pt was seen and evaluated by Bredna GUZMAN under the supervision of Dr. Celestine [...] under the direct supervision of Dr. Celestine Pooel who was consulted after the visit. He [...] Provider Name:Brenda Blas, Deep 06/02/2025 02:00:00 PM, [address] [place] [address], [phone], Insurance Providers Payer Name Payer Address Payer Phone Subscriber Number Group Number Insured Name Patient Relationship to Insured Coverage Start Date Coverage End Date [place] [address] [place], [place] [id number] Dania Ferreira Self - patient is the insured Medical (General) History Medical History History ICD Code Migraines Unknown anaphylactic allergy Insomnia Surgical History Surgery Date(Month/Year) lacrimal ducts 04/1999 [place] teeth removed Ingrown toenails Mole removal 08/19/23 Hospitalization History Reason Date(Month/Year) anaphylactic reaction 06/2022
== END 2025-06-02 14:11 | disposition home or self-care (01) ==
LOC: HO.HWS 09:29
PROVIDERS: Visit Provider Advanced Practice Midwife
DX: N89.8 Other specified noninflammatory disorders of vagina (principal); R30.0 Dysuria; R35.0 Frequency of micturition; Z71.2 Person consulting for explanation of examination or test findings
CPT/HCPCS: 99213

== ENCOUNTER 2025-06-03 09:08 | Outpatient (AMB) | payer BC, SELFPAY ==
--- OUTSIDE RECORDS SUMMARY | 2025-06-02 10:00 | XMS_ITS ---
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 Role Phone Nishi Thomson Primary Care Provider Celestine Sutherland Unavailable [phone] Brenda Odonnell Unavailable [phone] Allergies Allergen (clinical drug ingredient) Drug/Non Drug Allergy documented on EMR Reaction Allergy Type Onset Date Status Gluten Gluten Unknown Allergy Active lactose Lactose (Intolerance) Unknown Drug Allergy Active No Known Drug Allergy Unknown Drug Allergy Active REASON FOR VISIT Intractable headache, 1 month f/u and NB Medications Medication SIG (Take, Route, Frequency, Duration) Notes Start Date End Date Status EPINEPHrine (Anaphylaxis) 30 MG/30ML as directed Injection As needed for anaphylaxis per spinneret cleaner 01/10/2023 Active Eletriptan Hydrobromide 40 MG 1/2 tablet to 1 tablet at onset of migraine with 2 tabs Ibuprofen Orally as needed, may repeat 2nd tab 2 hours later if migraine persists; Duration: 30 days Do not combine triptans Stopping rizatriptan Not-Taking Promethazine HCl 25 MG 1 tablet as needed Orally every 6 hours; Duration: 30 days Monitor for drowsiness. OK to take with ondansetron as needed Not-Taking acetaZOLAMIDE 250 MG 2 tablets Orally twice a day; Duration: 90 days Active Ondansetron HCl 8 MG 1 tablet as needed Orally q6h prn nausea; Duration: 30 day(s) PRN Not-Taking Xolair 150 MG/ML 2 injections Subcutaneous once per month per spinneret cleaner 12/27/2022 Active Acetaminophen Extra Strength 500 MG 1 tablet as needed Orally every 6 hrs PRN Active Famotidine 40 MG 1 tablet Orally Twice a day PRN Active Ibuprofen Childrens 100 MG/5ML 20 ml with food or milk as needed Orally prn headache difficulty swallowing pills Active Depo-Provera 150 MG/ML 1 ml Intramuscular Active Nortriptyline HCl 10 MG 3 capsules Oral Once a day at bedtime; Duration: 90 days Active Ajovy 225 MG/1.5ML Inject 1 autoinjector Subcutaneous q27-30 days; Duration: 90 days Active ZyrTEC Allergy 10 MG 1 tablet Orally at bedtime Active Rizatriptan Benzoate 10 MG 1/2 to 1 tablet along with 2 tabs ibuprofen Oral as needed at onset of migraine. May repeat once after 2 hrs if headache returns.; Duration: 30 days PRN Active predniSONE 20 MG standing order as directed Orally As needed per spinneret cleaner 01/10/2023 Not-Taking acetaZOLAMIDE 125 MG 3 tablets in AM Orally and 4 tablets at bedtime; Duration: 30 days 06/02/2025 Active Nurtec 75 MG 1 tablet on the tongue and allow to dissolve Orally every other day; Duration: 30 days May take up to 18 tabs per month Active Ondansetron 8 MG 1 tablet on the tongue and allow to dissolve as needed Orally Once a day for nausea; Duration: 30 days Active predniSONE 20 MG As directed, every morning with food. 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 Pt was seen and evaluated by Brenda GUZMAN under the supervision of Dr. Celestine Poole who was in the office at the time of the visit and available for consultation as needed. Pt consents to treatment in office. 06/02/2025 Chronic migraine without aura, intractable, without status migrainosus (ICD-10 - G43.719) Pt with improvement in migraine severity and respond to rescue medications since starting Ajovy and increasing acetazolamide in March. She does continue with daily migraines but severity has reduced to 4/10 on average. Unfortunately pt has been having dramatic unintentional weight loss over the past 2 months. She has lost a total of 10 lbs and reports a very poor appetite. She is also reporting numbness and tingling in her fingers after changing from 250mg tablets to 125mg of Acetazolamide even though dose was equivalent. -Stop Acetazolamide 250mg tabs due to new tingling and weight loss with higher dose -Start Acetazolamdide 125mg again taking 3 tabs in AM and 4 tabs at bedtime. Pt tolerating this dose in the past and did have an improvement in headaches without significant weight loss or tingling reported. -Plan to likely start Gabapentin at bedtime after 2 weeks with plan to taper off of Nortriptyline afterward due to nightly nightmares with medication. -Plan to repeat nerve block next month . -Continue Ajovy, tolerating well with noticable improvement since starting. -Continue Nortriptyline 30mg for now, see above. -Continue Rizatriptan 1/2 tab to 1 tab. -Continue promethazine 25mg oral tab every 6 [...] Reviewed procedure with patient at last visit. -Will have Dr. 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 Will get his input to see if she would be a candidate for surgical consultation for stenting procedure. Pt does have strong family history of DVT. F/U: 4W for nerve block and evaluate pain. Patient [...] needed. Pt consents to treatment in office. 06/02/2025 Trigeminal neuralgia (ICD-10 - G50.0) Patient presents for evaluation and management. Pt was seen and evaluated by Brenda GUZMAN under the supervision of Dr. Celestine Poole who was in the office at the time of the visit and available for consultation as needed. Pt consents to treatment in office. 06/02/2025 Myalgia of auxiliary muscles, head and neck (ICD-10 - M79.12) Patient presents for evaluation and management. Pt was seen and evaluated by Brenda GUZMAN under the supervision of Dr. Celestine Poole who was in the office at the time of the visit and available for consultation as needed. Pt consents to treatment in office. Plan Of Treatment Medication Medication Name Sig Start Date Stop Date Notes Nortriptyline HCl 10 MG 3 capsules Oral Once a day at bedtime; Duration: 90 days Ajovy 225 MG/1.5ML Inject 1 autoinjecto r Subcutaneous q27-30 days; Duration: 90 days acetaZOLAMIDE 250 MG 2 tablets Orally tw ice a day; Duration: 30 days change to 125mg tabs due to side effects Rizatriptan Benzoate 10 MG 1/2 to 1 tablet along with 2 tabs ibuprofen Oral as needed at onset of migraine. May repeat once after 2 hrs if headache returns.; Duration: 30 days PRN acetaZOLAMIDE 125 MG 3 tablets in AM Ora lly and 4 tablets at bedtime; Duration: 30 days 06/02/2025 Nurtec 75 MG 1 tablet on the tong ue and allow to dissolve Orally every other day; Duration: 30 days Ondansetron 8 MG 1 tablet on the tong ue and allow to dissolve as needed Orally Once a day for nausea; Duration: 30 days Treatment Notes Assessment Notes Chronic migraine without aur a, intractable, without status migrainosus Pt with improvement in migraine severity and respond to rescue medications since starting Ajovy and increasing acetazolamide in March. She does continue with daily migraines but severity has reduced to 4/10 on average. Unfortunately pt has been having dramatic unintentional weight loss over the past 2 months. She has lost a total of 10 lbs and reports a very poor appetite. She is also reporting numbness and tingling in her fingers after changing from 250mg tablets to 125mg of Acetazolamide even though dose was equivalent. -Stop Acetazolamide 250mg tabs due to new tingling and weight loss with higher dose -Start Acetazolamdide 125mg again taking 3 tabs in AM and 4 tabs at bedtime. Pt tolerating this dose in the past and did have an improvement in headaches without significant weight loss or tingling reported. -Plan to likely start Gabapentin at bedtime after 2 weeks with plan to taper off of Nortriptyline afterward due to nightly nightmares with medication. -Plan to repeat nerve block next month . -Continue Ajovy, tolerating well with noticable improvement since starting. -Continue Nortriptyline 30mg for now, see above. -Continue Rizatriptan 1/2 tab to 1 tab. -Continue promethazine 25mg oral tab every 6 [...] Reviewed procedure with patient at last visit. -Will have Dr. 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 Will get his input to see if she would be a candidate for surgical consultation for stenting procedure. Pt does have strong family history of DVT. F/U: 4W for nerve block and evaluate pain. Patient agrees with plan. All questions and concerns addressed. Patient instructed to maintain headache logs. Patient advised to contact office for any change in headache pattern, increase in frequency, duration, or severity of headaches. Medication reconciliation completed. Previous office visit note reviewed. Next Appt Details Follow Up: 4 Weeks, Reason: Eval headaches, repeat NB Provider Name:Brenda Odonnell, 1 03:00:00 PM, [address] [place] [address], [phone], Procedure Notes * Category Sub-Category Detail Notes Trigger Point Injection Trapezius: under st erile conditions, left trapezius trigger point x2 0.5mL equal parts 1 mL 1000/mL mcg cyanocobalamin 1 mL 2.5mg/mL Bupivacaine and 30mg/1mL Ketoralac Trigeminal Block Consent Verbal informed consent obtained. The procedures are understood by the patient. The risks and benefits were discussed. All questions were answered to her satisfaction. Treatment In first a supine an d then a sitting position, The area over the injection sites were prepped with alcohol utilizing sterile technique.Using a 30-gauge, 1/2 inch needle, I then injected the trigger point with approximately 3 mL of a solution containing equal parts of Cyanocobalamin 1000mcg/mL, 0.25% bupivacaine 2.5mg/mL, and 30 mg/mL Ketorolac. Negative aspiration was performed. Excellent hemostasis was maintained throughout. Post-injection precautions were reviewed with the patient., Injection sites , Inject 0.25 mL Lef t Frontalis x 1 site, Inject 0.25 mL Left Epicranial Eponeurosis x 2 sites, Inject 0.25 mL Left parietal x 1 sitesInject 0.25 mL Left temporal x 2 sites Occipital Nerve Block Treatment In a sitti ng position. The area over the injection sites were prepped with alcohol utilizing sterile technique.Using a 30-gauge, 1/2 inch needle, I then injected the trigger point with approximately 3 mL of a solution containing equal parts of Cyanocobalamin 1000mcg/mL, 0.25% bupivacaine 2.5mg/mL, and 30 mg/mL Ketorolac. Negative aspiration was performed. Excellent hemostasis was maintained throughout. Post-injection precautions were reviewed with the patient.,Injected into the lesser and greater Occipital sites on the left side. Procedural Pause Procedural pause con ducted to verify: correct patient identity, procedure to be performed, correct side and site, correct patient position, and special requirements Post Procedure Following the proced ure, the patient noted a substantial reduction in the pre-procedure pain. They have been instructed in post-procedure care Progress Notes * Eric CANOOB: 998 (25 yo F)Acc No.[id number]:06/02/2025 Progress Notes Patient: Dania PORTILLO Provider: Manjinder Odonnell, MSN, [employer], AGNP-C :2000 A ge:25 Y S ex:Female Date:06/02/2025 Address:[address] [place], [place] [id number] Pcp:Nishi Flores Subjective: * Chief Complaints: * I ntractable headache, 1 month f/u and NB * HPI: H eadache: 25-year-old female presenting for migraine follow up. She was seen last 05/05/25 and nerve block was performed. She feels overall the past month has been better. She reports less severe headaches and did not need to use Rizatriptan for about 2 weeks after injections. Pt continues with Acetazolamide 500mg BID since 04/02 with good effect. She is noticing some tingling in her fingertips since switching from 125mg tabs to 250mg tabs. She states it comes and goes every day throughout the day. It sometimes feels painful when she is using her hands more. It lasts for 3-4 hours per day. She reports poor appetite with Acetazolamide. She has lost 10lbs since 04/02 when she increased her dose from 125mg 3 tabs in AM (375mg) and 4 tabs (500mg) HS to 4 tabs BID (500mg BID) She reports poor appetite and has not been eating any sugar which she thinks is helping her migraines. She had candy on 05/28/25 and within 30 minutes she was unwell. She did not have a rescue medication at the time, so she took it a little later and felt it was not effective. She did take a second tab without great effect. She had to sleep and the next morning the headache persisted but was not as bad. She does feel some improvement in her headaches. She reports headaches are still the worst in the morning most days. She has no headache free days. She is taking Rizatriptan about 3x/month. She will not treat it when pain is 3- 4/10 because Tylenol brings the pain down and will sometimes abort it. She has tried Eletriptan in past but felt tingling with it and funny . Average pain is 4/10, reduced from 5-6/10 daily. She continues to wake up with a daily headache when she opens her eyes. Her peak pain is 8/10 and worst pain is usually in the morning. She will sometimes feel a peak pain in the evening 1-2x and will be present in the morning if she does not take Rizatriptan. She was still needing to nap due to Rizatriptan side effect, she will sleep for 6 hours and then will be headache free up until the next morning. She has not tried using a half tab because the pain was so severe. She is taking melatonin which helps her fall asleep. She is still having increased nightmares, continues every night. She is waking up every night at 4am or 6am she will wake with a migraine. Pt has been on Ajovy for about 4 months and reports overall improvement. Prior to Ajovy and Acetazolamide pain was 7/10 every day. She continues with Nurtec every other day which will help slightly if she has a severe migraine, but does not abort it. She is noticing a difference with being on medication. She is on Nortriptyline 30mg which she felt initially was helpful for sleep and migraine. 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 She reports light sensitivity is more recently bothering her since January. She states they are putting in curtains for her. [facility] is approved until 08/16 for intermittent leave. She thinks she missed 2 full days in the past month due to migraine. Meds taking: Ajovy (01/31), Acetazolamide (helpful but now tingling and weight loss), Rizatriptan, Nortriptyline 30mg, Nurtec every other day, Meds tried: Emgality (since 2020, stopped being effective switched to Ajovy), Topamax 150mg (not effective and weight loss), Eletriptan (tingling not tolerable), Sumatriptan (not effective), Propranolol 20mg BID (unsure but did not like s/e), Zavzpret (temporary relief x5 hr, may be worth retrialing). Has not tried: Gabapentin, Pregabalin, Duloxetine, Botox, Migraines started in 2020, she had headaches as a child all the time. She denies h/o head injury or infection. She does not remember exact moment they started. No family history of migraines. Headaches are usually left sided and if they get severe will migrate to right side. She gets sound sensitivity and light sensitivity. 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 She has a family history of DVT in her father and 2 paternal uncles. Pain continues to be left side of head. She has pressure in her left eye. Denies any blurry vision, double vision, floaters or aura. Denies numbness, tingling, weakness, confusion, brain fog. Pain is also in occipital area, she does have neck tension. H/A sometimes improve as the day goes on. Denies needing to prop her head up on pillows. Denies depression. S/e include nightmares with nortriptyline and decreased appetite with weight loss over the past 2 months with acetazolamide. She is now having tingling in her fingers since switching from 125mg tabs to 250mg tabs of Acetazolamide (dose was unchanged). She is not having any nausea, only 1 episode of vomiting with a severe migraine. She reports feeling nauseous if she tries to eat. Tried protein drinks but stopped due to stomach upset. Journals: 05/03: 3x4, 4x15, 5x1, 6x4, 7x1 8x1 (26 days) = 118 = 140 HI 05/05-06/01 (28 days): 3x3, 4x17, 5x5, 6x2, 8x1 = 122, 135 HI. * ROS: G eneral / Constitutional: Patient denies c hange in appetite, chills, fatigue, fever, headache, s leep disturbance, weakness. O phthalmologic: Patient denies b lurry vision, change in vision, diminished visual acuity, double vision, eye pain, flashes of light in the visual field, floaters in the visual field. C ardiovascular: Patient denies c hest pain, chest pain with exertion, irregular heartbeat, heart racing, palpitations. G astrointestinal: Patient denies n ausea, vomiting, reflux. N eurologic: Patient denies b alance difficulty, confusion, difficulty speaking, fainting, gait abnormality, headache, irritability, tingling / numbness, tremor. P atient complains of h eadache, sleep disturbance. * Medical History: * Surgical History: l acrimal ducts 04/1999Wisdom teeth removed Ingrown toenails Mole removal 08/19/23 * Hospitalization/Major Diagno stic Procedure: a naphylactic reaction 06/2022 * Family History: F ather: alive 52 yrs, diagnosed with Essential hypertension. M other: alive 50 yrs. M aternal Grand Father: diagnosed with Other malignant neoplasm without specification of site. 2 brother(s) , 1 sister(s) - healthy. . Father- HTN, DVT and PE after surgery saw a recovery analyst, negative work up. paternal uncles: 2 with DVT and PE after surgery. paternal grandmother: multiple TIAs paternal grandfather: [place] No family history aneurysms. maternal grandmother- Lung and liver cancer maternal grandfather-Kidney and bone cancer Paternal grandfather- Diabetes, pace maker,. 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 * Medications: T akingNurtec 75 MG Tablet Disintegrating 1 tablet on the tongue and allow to dissolve Orally every other day May take up to 18 tabs per monthOndansetron 8 MG Tablet Disintegrating 1 tablet on the tongue and allow to dissolve as needed Orally Once a day for nausea Nortriptyline HCl 10 MG Capsule 3 capsules Oral Once a day at bedtime Ajovy 225 MG/1.5ML Solution Auto-injector Inject 1 autoinjector Subcutaneous q27-30 days ZyrTEC Allergy 10 MG Tablet 1 tablet Orally at bedtime Ibuprofen Childrens 100 MG/5ML Suspension 20 ml with food or milk as needed Orally prn headache , Notes to Pharmacist: difficulty swallowing pillsAcetaminophen Extra Strength 500 MG Tablet 1 tablet as needed Orally every 6 hrs , Notes to Pharmacist: PRNFamotidine 40 MG Tablet 1 tablet Orally Twice a day , Notes to Pharmacist: PRNDepo-Provera 150 MG/ML Suspension 1 ml Intramuscular Xolair 150 MG/ML Solution Prefilled Syringe 2 injections Subcutaneous once per month per spinneret cleaner EPINEPHrine (Anaphylaxis) 30 MG/30ML Solution as directed Injection As needed for anaphylaxis per allergistRizatriptan Benzoate 10 MG Tablet 1/2 to 1 tablet along with 2 tabs ibuprofen Oral as needed at onset of migraine. May repeat once after 2 hrs if headache returns. , Notes to Pharmacist: PRNacetaZOLAMIDE 250 MG Tablet 2 tablets Orally twice a day Taking Nurtec 75 MG Tablet Disintegrating 1 tablet on the tongue and allow to dissolve Orally every other day May take up to 18 tabs per monthTaking Ondansetron 8 MG Tablet Disintegrating 1 tablet on the tongue and allow to dissolve as needed Orally Once a day for nausea Taking Nortriptyline HCl 10 MG Capsule 3 capsules Oral Once a day at bedtime Taking Ajovy 225 MG/1.5ML Solution Auto- injector Inject 1 autoinjector Subcutaneous q27-30 days Taking ZyrTEC Allergy 10 MG Tablet 1 tablet Orally at bedtime Taking Ibuprofen Childrens 100 MG/5ML Suspension 20 [...] Depo-Provera 150 MG/ML Suspension 1 ml Intramuscular Taking Xolair 150 MG/ML Solution Prefilled Syringe 2 injections Subcutaneous once per month per spinneret cleaner Taking EPINEPHrine (Anaphylaxis) 30 MG/30ML Solution as directed Injection As needed for anaphylaxis per allergistTaking Rizatriptan Benzoate 10 MG Tablet 1/2 to 1 tablet along with 2 tabs ibuprofen Oral as needed at onset of migraine. May repeat once after 2 hrs if headache returns. , Notes to Pharmacist: PRNTaking acetaZOLAMIDE 250 MG Tablet 2 tablets Orally twice a day Not-TakingEletriptan Hydrobromide 40 MG Tablet 1/2 tablet to 1 tablet at onset of migraine with 2 tabs Ibuprofen Orally as needed, may repeat 2nd tab 2 hours later if migraine persists Do not combine triptans, Notes to Pharmacist: Stopping rizatriptanPromethazine HCl 25 MG Tablet 1 tablet as needed Orally every 6 hours Monitor for drowsiness. OK to take with ondansetron as neededOndansetron HCl 8 MG Tablet 1 tablet as needed Orally q6h prn nausea , Notes to Pharmacist: PRNpredniSONE 20 MG Tablet As directed, every morning with food. Orally 3 tabs for 4 days, 2 tabs for 4 days, 1 tab for 4 days, 1/2 tab for 4 days. predniSONE 20 MG Tablet standing order as directed Orally As needed per allergistMedication List reviewed and reconciled with the patientNot-Taking Eletriptan Hydrobromide 40 MG Tablet 1/2 tablet to 1 tablet at onset of migraine with 2 tabs Ibuprofen Orally as needed, may repeat 2nd tab 2 hours later if migraine persists Do not combine triptans, Notes to Pharmacist: Stopping rizatriptanNot-Taking Promethazine HCl 25 MG Tablet 1 tablet as needed Orally every 6 hours Monitor for drowsiness. OK to take with ondansetron as neededNot-Taking Ondansetron HCl 8 MG Tablet 1 tablet as needed Orally q6h prn nausea , Notes to Pharmacist: PRNNot-Taking predniSONE 20 MG Tablet As directed, every morning with food. Orally 3 tabs for 4 days, 2 tabs for 4 days, 1 tab for 4 days, 1/2 tab for 4 days. Not-Taking predniSONE 20 MG Tablet standing order as directed Orally As needed per allergistMedication List reviewed and reconciled with the patient * Allergies: N o Known Drug AllergyGlutenLactose (Intolerance)no[Allergies Verified] Objective: * Vitals: B P:113/74mm Hg, HR:93/min, Wt:120.4lbs, Wt-k.61 kg, Ht: 64 in, BMI:20.66Index, Body Surface Area: 1.57. * Examination: G eneral Examination: General appearance: a lert, well-nourished and in no acute distress. Head: n ormocephalic, tenderness to left occipital groove with tenderness up left trigeminal nerve root and left parietal. Tenderness to left temporal region and left upper trapezius.. Skin: s kin is warm and dry, with no rashes, good skin turgor and normal hair distribution, tattoos. Lungs: r espiratory even and unlabored. Extremities: n o edema. N eurology: Cortical functions: a lert and oriented x 3, comprehension and language intact, speech clear and coherent. Motor strength: n o evidence of atrophy, wasting and/or spasticity of muscles, movements are normal. Gait and station: w ithin normal limits. Speech: s peech clear and coherent. Assessment: * Assessment: 1. C hronic migraine without aura, intractable, without status migrainosus - G43.719 (Primary)? 2. O ccipital neuralgia - M54.81 3 . T rigeminal neuralgia - G50.0 4 . M yalgia of auxiliary muscles, head and neck - M79.12 ? Patient presents for evaluat ion and management. Pt was seen and evaluated by Brenda GUZMAN under the supervision of Dr. Celestine Poole who was in the office at the time of the visit and available for consultation as needed. Pt consents to treatment in office. Plan: * Treatment: * Procedures: T rigeminal Block: Consent V erbal informed consent obtained. The procedures are understood by the patient. The risks and benefits were discussed. All questions were answered to her satisfaction.. T reatment I n first a supine and then a sitting position, The area over the injection sites were prepped with alcohol utilizing sterile technique. Using a 30-gauge, 1/2 inch needle, I then injected the trigger point with approximately 3 mL of a solution containing equal parts o f Cyanocobalamin 1000mcg/mL, 0.25% bupivacaine 2.5mg/mL, and 30 mg/mL Ketorolac. Negative aspiration was performed. Excellent hemostasis was maintained throughout. Post-injection precautions were reviewed with the patient., . I njection sites , Inject 0.25 mL Left Frontalis x 1 site ,Inject 0.25 mL Left Epicranial Eponeurosis x 2 sites , I nject 0.25 mL Left p arietal x 1 sites Inject 0.25 mL Left temporal x 2 sites . O ccipital Nerve Block: Treatment I n a sitting position. T he area over the injection sites were prepped with alcohol utilizing sterile technique. Using a 30-gauge, 1/2 inch needle, I then injected the trigger point with approximately 3 mL of a solution containing equal parts o f Cyanocobalamin 1000mcg/mL, 0.25% bupivacaine 2.5mg/mL, and 30 mg/mL Ketorolac. Negative aspiration was performed. Excellent hemostasis was maintained throughout. Post-injection precautions were reviewed with the patient., Injected into the lesser and greater Occipital sites on the left side.. P ost Procedure F ollowing the procedure, the patient noted a substantial reduction in the pre-procedure pain. They have been instructed in post-procedure care. P rocedural Pause P rocedural pause conducted to verify: correct patient identity, procedure to be performed, correct side and site, correct patient position, and special requirements. 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 P reprocedure Pain: 4/10 Postprocedure Pain: 3/10. Bupivacaine 2.5mg/mL 1mL LOT [id number], Exp 09/2027 Cyanocobalamin 1000mcg/mL LOT [id number], Exp 03/2026 Ketoralac 15mg/mL 2mL LOT [id number], Exp 09/2026. * Procedure Codes: 6 4405 NERVE BLOCK,GR OCCIPITAL NERVE, [place]: [place] [address] Injection, anesthetic agent, Trigeminal Nerve, Modifiers: LT J0665 Inj, bupivacaine, nos, 0.5mg, Units: 2.00 , Modifiers: SCHILLING J1885 TORODOL IM , PER 15 [id number] B12 inj.16153 TRIGGER POINT,1 OR 2 MUSCLE GR, Modifiers: SCHILLING * Follow Up: 4 Weeks (Reason: Eval headaches, repeat NB) * Billing Information: * Visit Code: 89853 OFFICE VISIT,EST PT,LEVEL 4. Modifiers: 25 * Procedure Codes: 94190 NERVE BLOCK,GR OCCIPITAL [place]ERVE. [place] [address] Injection, anesthetic agent, Trigeminal Nerve. Modifiers: LT J0665 Inj, bupivacaine, nos, 0.5mg. Units: 2.00. Modifiers: SCHILLING J1885 TORODOL IM , PER 15 MG. Modifiers: 2 J3420 B12 inj.. 43437 TRIGGER POINT,1 OR 2 MUSCLE GR. Modifiers: TONIE * Sign off status: Completed true * Provider: Manjinder Odonnell, MSN, [employer] LINEMAN, AGNP-C Date: 0 06/02/2025 Generated for Elena hernández/Morgan/Jvitting on: 0 06/03/2025 10:03 AM EDT History and Physical Notes * HPI (History of Present Illness) Category Sub-Category Detail Notes Category Not es Headache 25-year-old female presenting for migraine follow up. She was seen last 05/05/25 and nerve block was performed. She feels overall the past month has been better. She reports less severe headaches and did not need to use Rizatriptan for about 2 weeks after injections. Pt continues with Acetazolamide 500mg BID since 04/02 with good effect. She is noticing some tingling in her fingertips since switching from 125mg tabs to 250mg tabs. She states it comes and goes every day throughout the day. It sometimes feels painful when she is using her hands more. It lasts for 3-4 hours per day. She reports poor appetite with Acetazolamide. She has lost 10lbs since 04/02 when she increased her dose from 125mg 3 tabs in AM (375mg) and 4 tabs (500mg) HS to 4 tabs BID (500mg BID) She reports poor appetite and has not been eating any sugar which she thinks is helping her migraines. She had candy on 05/28/25 and within 30 minutes she was unwell. She did not have a rescue medication at the time, so she took it a little later and felt it was not effective. She did take a second tab without great effect. She had to sleep and the next morning the headache persisted but was not as bad. She does feel some improvement in her headaches. She reports headaches are still the worst in the morning most days. She has no headache free days. She is taking Rizatriptan about 3x/month. She will not treat it when pain is 3-4/10 because Tylenol brings the pain down and will sometimes abort it. She has tried Eletriptan in past but felt tingling with it and funny . Average pain is 4/10, reduced from 5-6/10 daily. She continues to wake up with a daily headache when she opens her eyes. Her peak pain is 8/10 and worst pain is usually in the morning. She will sometimes feel a peak pain in the evening 1-2x and will be present in the morning if she does not take Rizatriptan. She was still needing to nap due to Rizatriptan side effect, she will sleep for 6 hours and then will be headache free up until the next morning. She has not tried using a half tab because the pain was so severe. She is taking melatonin which helps her fall asleep. She is still having increased nightmares, continues every night. She is waking up every night at 4am or 6am she will wake with a migraine. Pt has been on Ajovy for about 4 months and reports overall improvement. Prior to Ajovy and Acetazolamide pain was 7/10 every day. She continues with Nurtec every other day which will help slightly if she has a severe migraine, but does not abort it. She is noticing a difference with being on medication. She is on Nortriptyline 30mg which she felt initially was helpful for sleep and migraine. 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 She reports light sensitivity is more recently bothering her since January. She states they are putting in curtains for her. [facility] is approved until 08/16 for intermittent leave. She thinks she missed 2 full days in the past month due to migraine. Meds taking: Ajovy (01/31), Acetazolamide (helpful but now tingling and weight loss), Rizatriptan, Nortriptyline 30mg, Nurtec every other day, Meds tried: Emgality (since 2020, stopped being effective switched to Ajovy), Topamax 150mg (not effective and weight loss), Eletriptan (tingling not tolerable), Sumatriptan (not effective), Propranolol 20mg BID (unsure but did not like s/e), Zavzpret (temporary relief x5 hr, may be worth retrialing). Has not tried: Gabapentin, Pregabalin, Duloxetine, Botox, Migraines started in 2020, she had headaches as a child all the time. She denies h/o head injury or infection. She does not remember exact moment they started. No family history of migraines. Headaches are usually left sided and if they get severe will migrate to right side. She gets sound sensitivity and light sensitivity. 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 She has a family history of DVT in her father and 2 paternal uncles. Pain continues to be left side of head. She has pressure in her left eye. Denies any blurry vision, double vision, floaters or aura. Denies numbness, tingling, weakness, confusion, brain fog. Pain is also in occipital area, she does have neck tension. H/A sometimes improve as the day goes on. Denies needing to prop her head up on pillows. Denies depression. S/e include nightmares with nortriptyline and decreased appetite with weight loss over the past 2 months with acetazolamide. She is now having tingling in her fingers since switching from 125mg tabs to 250mg tabs of Acetazolamide (dose was unchanged). She is not having any nausea, only 1 episode of vomiting with a severe migraine. She reports feeling nauseous if she tries to eat. Tried protein drinks but stopped due to stomach upset. Journals: 05/03: 3x4, 4x15, 5x1, 6x4, 7x1 8x1 (26 days) = 118 = 140 HI 05/05-06/01 (28 days): 3x3, 4x17, 5x5, 6x2, 8x1 = 122, 135 HI Examination Category Sub-Category Detail Notes Category Not es Neurology Cortical functions: alert and or iented x 3, comprehension and language intact, speech clear and coherent Motor strength: no evidence of atrop hy, wasting and/or spasticity of muscles, movements are normal Gait and station: within normal limits Speech: speech clear and coh erent General Examination General appearance: alert, w ell-nourished and in no acute distress Head: normocephalic, tende rness to left occipital groove with tenderness up left trigeminal nerve root and left parietal. Tenderness to left temporal region and left upper trapezius. Lungs: respiratory even and unlabored Skin: skin is warm and dry , with no rashes, good skin turgor and normal hair distribution, tattoos Extremities: no edema
--- NOTE | 2025-06-03 09:19 | AM.OFFVISNUR ---
Intake Visit Reasons: DEPO Dialysis Biomed Technician Required: No Information Interpreted: non-clinical & clinical Allergies No Known Allergies Allergy (Verified 06/03/25 09:20) Medication List - Last Reconciled 06/03/25 by Soila Huang LPN acetazolamide 125 mg PO BID acetazolamide ER 2,000 mg PO DAILY cetirizine (Zyrtec) 10 mg PO DAILY PRN epinephrine IM famotidine 20 mg PO BID fremanezumab-vfrm (Ajovy Syringe) 225 mg subcut QMONTH medroxyprogesterone (Depo-Provera) 150 mg IM A0MLHHYM metronidazole 500 mg PO BID 7 days nortriptyline 20 mg PO BEDTIME omalizumab (Xolair) mg subcut rizatriptan take 1 tab at onset of headache; if no relief may repeat 1 tab after at least 2 hrs; max = 3 tabs/24 hr PO Is last menstrual period known: No Post menopausal: No Patient : No Do you need a note to return to daycare/school/sports/work: No Nursing Note Dania is here today for her scheduled Depo-provera inj. She denies any problems or concerns. Follow up in 12 weeks for next inj. Pt to front office agent for scheduling. Office Procedures Depo Questionnaire If YES to any of the following questions, please consult a provider. Date of last injection: 03/11/25 Date of last gynecology exam: 04/07/25 Menstrual pattern since last injection has been: Not Applicable Irregular bleeding?: No Breast lumps or other breast changes?: No Changes in weight or appetite?: No Depression or changes in mood?: No Abnormal hair growth or loss?: No Skin problems (rash, acne, discoloration)?: No Pain at the injection site?: No Headaches?: No Nervousness?: No Abdominal pain or cramping?: No Dizziness or nausea?: No Fatigue or weakness?: No Decrease in sexual drive?: No Chest pain or shortness of breath?: No Swelling in arms or legs?: No Form completed by?: Gigi Huang LPN Office Meds Depo-Provera 150 mg/mL intramuscular syringe Performing Provider: Keara Lutz CNM Performing Location: [facility] Administered by: Soila Huang LPN on 06/03/25 09:24 Dose Route Admin Location Dispensed Lot Number Expiration Date NDC Disc Pad Grinding Machine Feeder 150 mg IM rt. deltoid 1 mL [id number] 01/06/27 28019-295-61 [facility] Total Dispensed Waste 1 mL 0 % Assessment & Plan Assessment & Plan Orders: Orders AMB Medroxyprogesterone Injection Patient Supplied Today Z30.9 - Encounter for contraceptive management, unspecified Coding Level of Care Code Established Pt Est Pt Level 1 (55610) Patient Type Established History Problem Focused Exam Problem Focused Medical Decision Making Straight Forward Time Spent (min) 20
--- OUTSIDE RECORDS SUMMARY | 2025-06-03 10:03 | XMS_ITS | Encounter Summary ---
Author Organization [facility] Address [address] [place] [phone] Care Team Providers Care Property Loss Insurance Claim Adjuster Name Role Phone Nishi Foster MD Primary Care Prov ider Reason for Referral * Consultation (Routine) - Closed Specialty Diagnoses / Procedures Referred By Navdeep garcia Referred To Contact Dermatology Diagnoses Neoplasm of uncertain behavior of skin Nishi Foster MD [address] [place] [address] Phone: tel: fax: Cleo Rosas PA [facility] [address] [place] [address] Phone: tel: fax: Referral ID Status Reason Start Date Expiration Date V isits Requested Visits Authorized [id number] Closed Specialty Services Required 05/04/2025 05/04/2026 6 6 Encounter Details Date Type Department Care Team (Late st Contact Info) Description 05/18/2025 Telephone Adult Medicine [address] [phone] Nishi Foster MD [address] [place] [address] Social History Tobacco Use Types Packs/Day Years [...] - 05/18/2025 11:56 AM EDT Copied from [facility] #[id number]. Topic: Referral - Request >> May 18, 2025 11:55 AM Gardenia Rankin wrote: Nishi called requesting a dermatology referral What insurance does the patient have today? Payor: @[email or web address]/@[email or web address] Referrals cannot be processed if the insurance is not accurate. If the insurance listed above is NO BILLING INFORMATION FOUND FOR THIS ENCOUNTER then the patients correct insurance must be obtainedand registered in [facility] or their referral can not be processed. Name of person calling to request this referral? Maria Referred To Provider (Include first and last name): Cleo Rosas NPI (if known): [phone] Order/Specialty requested Dermatology Chief Complaint (Note: This is not a body part or a procedure): D48.5 Has the patient seen provider for this problem/Dx before? No Referred To Provider Address: [address] [place] [address] Referred To Provider Referred To Provider Does [...] Primary documented in this encounter Care Teams Property Loss Insurance Claim Adjuster Relationship Specialty Start Date End Date Nishi Foster MD PCP - General Internal Medicine 06/18/22 documented as of this encounter
--- OUTSIDE RECORDS SUMMARY | 2025-06-03 10:03 | XMS_ITS | Patient Health Record ---
Author Organization [facility] [place] Address [address] [place] [address] Care Team Providers Care Director Network Development Name Role Phone Coral Lawrence MD Primary Care Provider Hiral Treviño Unavailable [phone] Reason For Referral No Information Medications Medication [...] Problem Plantarflexion deformity of right foot (finding) (8001679278238922) Equinus contracture of right ankle (M24.571) Active confirmed Plan Of Treatment Pending Test Test Name Order Date X ray : Foot, right 3V 02/05/2017 75139-Evdljzsk Plate 07/20/2015 18528-Oeiravbm Plate 08/03/2015 30172-Bkeewamt Plate 11/19/2016 72332-DTC 02/05/2017 18316-UEQ 09/17/2017 51041- Debride <25 sq cm 10/02/2017 54542- Debride <25 sq cm 02/19/2017 Insurance Providers Payer Name Payer Address Payer Phone Subscriber Number Group Number Insured Name Patient Relationship to Insured Coverage Start Date Coverage End Date [employer] [address] [place] [address] [id number] Dania Ferreira Self - patient is the insured Medical (General) History Medical History History ICD Code Chicken pox Warts Surgical History Surgery Date(Month/Year) eye surgery, tear ducs Ingrown Toe Nail NICHOLAS great toes 09/17/17
--- OUTSIDE RECORDS SUMMARY | 2025-06-03 10:03 | XMS_ITS | Clinical Summary ---
Author Organization [address] Address [address] [place] [phone] Phone Care Team Providers Care Gold Leaf Printer Name Role Phone Nishi Foster MD Primary [...] Care Team Description 05/18/2025 Telephone Adult Medicine [address] [place] [address] Nishi Foster MD from Last 3 Months Immunizations Name Administration Dates Next Due Influenza Quadravalent, MDCK , 0.5ml, preservative free (Flucelvax) 6mo and older 06/13/2021 Tdap Tetanus diptheria acell ular pertussis (Boostrix; Adacel) 7yo and older 08/25/2020 Surgical History Surgery Date Site/Laterality Comments WISDOM TOOTH EXTRACTION PROCEDURE: HISTORICAL WISDOM TEETH EXTRACTION OTHER SURGICAL HISTORY PROCEDURE: [place] WEDGE EXCISION SKIN NAIL FOLD OTHER SURGICAL HISTORY PROCEDURE: [place] UNLISTED PROCEDURE LACRIMAL SYSTEM Medical History Medical [...] PM EDT) Other Topography unknown / Unknown [facility] Provider LAB BLOOD ORDERABLES Amy l Result * Pelvic Ultrasound (04/08/2025 7:06 AM EDT) [facility] IN CLINIC/BEDSIDE ORDERAB LES Final Result * External clinical lab (04/07/2025) [facility] LAB BLOOD ORDERABLES Fin al Result * Lipid panel (06/19/2024) LDL/HDL Ratio 3 0 - 4 Triglycerides 108 0 - 150 mg/dL Cholesterol 162 0 - 200 mg/dL HDL 48 >=40 mg/dL LDL Cholesterol 93 0 - 100 mg/dL Blood Venous blood specimen / Unknown Result [facility] Provider LAB BLOOD ORDERABLES Amy l Result * Hm Pap Smear (06/19/2023) Pap smear Abstracted, No Interpretation [facility] Koko [facility]O HEALTH MAINTENANCE Final Result from Last 3 Months or Most Recently Relevant to Health Maintenance Insurance [facility] Care Teams Gold Leaf Printer Relationship Specialty Start Date End Date Nishi Foster MD PCP - General Internal Medicine 06/18/22
--- OUTSIDE RECORDS SUMMARY | 2025-06-03 10:03 | XMS_ITS | Patient Health Record ---
Author Organization [facility] Address [address] [place] [address] Care Team Providers Care Photography Sales Associate Name Role Phone Nishi Thomson Primary Care Provider Celestine Sutherland Unavailable [phone] Brenda Odonnell Unavailable [phone] Allergies Allergen (clinical drug ingredient) Drug/Non Drug Allergy documented on EMR Reaction Allergy Type Onset Date Status Gluten Gluten Unknown Allergy Active lactose Lactose (Intolerance) Unknown Drug Allergy Active No Known Drug Allergy Unknown Drug Allergy Active Reason For Referral Reason OFFICE VISIT Diagnosis 1 Migraine without aur a, not intractable, without status migrainosus (G43.009) Referred Organization [facility]. Referred Provider Celestine Poole Referred Address [address] [place], [place],[address], Referred Provider Specialty Neurology Referral Priority Routine Medications Medication SIG (Take, Route, Frequency, Duration) Notes Start Date End Date Status Nortriptyline HCl 10 MG 3 capsules Oral Once a day at bedtime; Duration: 90 days Active Acetaminophen Extra Strength 500 MG 1 tablet as needed Orally every 6 hrs PRN Active predniSONE 20 MG standing order as directed Orally As needed per director erp 01/10/2023 Not-Taking Ajovy 225 MG/1.5ML Inject 1 autoinjector Subcutaneous q27-30 days; Duration: 90 days Active acetaZOLAMIDE 125 MG 3 tablets in AM Orally and 4 tablets at bedtime; Duration: 30 days 06/02/2025 Active Famotidine 40 MG 1 tablet Orally Twice a day PRN Active Nurtec 75 MG 1 tablet on the tongue and allow to dissolve Orally every other day; Duration: 30 days May take up to 18 tabs per month Active ZyrTEC Allergy 10 MG 1 tablet Orally at bedtime Active Ondansetron HCl 8 MG 1 tablet as needed Orally q6h prn nausea; Duration: 30 day(s) PRN Not-Taking Ondansetron 8 MG 1 tablet on the tongue and allow to dissolve as needed Orally Once a day for nausea; Duration: 30 days Active Ibuprofen Childrens 100 MG/5ML 20 ml with food or milk as needed Orally prn headache difficulty swallowing pills Active predniSONE 20 MG As directed, every morning with food. Orally 3 tabs for 4 days, 2 tabs for 4 days, 1 tab for 4 days, 1/2 tab for 4 days.; Duration: 30 days Not-Taking Depo-Provera 150 MG/ML 1 ml Intramuscular Active Rizatriptan Benzoate 10 MG 1/2 to 1 tablet along with 2 tabs ibuprofen Oral as needed at onset of migraine. May repeat once after 2 hrs if headache returns.; Duration: 30 days PRN Active Xolair 150 MG/ML 2 injections Subcutaneous once per month per director erp 12/27/2022 Active EPINEPHrine (Anaphylaxis) 30 MG/30ML as directed Injection As needed for anaphylaxis per director erp 01/10/2023 Active Eletriptan Hydrobromide 40 MG 1/2 [...] twice a day; Duration: 90 days Active Social History Tobacco Use: Social [...] Partial bedrest 1-2 days. Works at an [employer], in school, studying accounting no smoking Level of disability Work loss in last 3 months: 1 day missed Days of bedrest in last 3 months: Full bed rest 1 day. Works at an [employer], in school, studying accounting no smoking Level of disability Work loss in last 3 months: 1 day missed Days of bedrest in last 3 months: Full bed rest 1 day. Works at an [employer], in school, studying accounting no smoking Level of disability Work loss in last 3 months: 1 day missed Days of bedrest in last 3 months: Full bed rest 1 day. Works at an [employer], in school, studying accounting no smoking Level of disability Work loss in last 3 months: 1 day missed Days of bedrest in last 3 months: Full bed rest 1 day. 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 Partial days missed, 6-10 days. Days of bedrest in last 1 month: Full bed rest 1-to days. Partial bedrest 1-2 days. 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, Problems Problem Type SNOMED Code ICD Code Onset Dates Problem Status W/U Status Risk Notes Problem Migraine without aura, not refractory (275428908) Migraine without aura, not intractable, without status migrainosus (G43.009) Active confirmed Problem Refractory migraine without aura (013612917) Migraine without aura, intractable, without status migrainosus (G43.019) Active confirmed Problem Chronic intractable migraine without aura (181023755560482) Chronic migraine without aura, intractable, without status migrainosus (G43.719) Active confirmed Problem Insomnia (529889360) Insomnia, unspecified (G47.00) Active confirmed Problem Trigeminal neuralgia (62235476) Trigeminal neuralgia (G50.0) Active confirmed Problem Occipital neuralgia (12969769) Occipital neuralgia (M54.81) Active confirmed Problem Screening for cardiovascular system disease (929263129) Encounter for screening for cardiovascular disorders (Z13.6) Active confirmed Problem Myalgia of auxiliary muscles, 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 [address] [place] [phone] 07/14/2024 Brenda Jaegle Migraine without aur a, intractable, without status migrainosus G43.019 and Occipital neuralgia M54.81 [facility] [address] [place] [phone] 12/29/2024 Celestine Baileyley Occipital neuralgia M54.81 ; Trigeminal neuralgia G50.0 ; Myalgia of auxiliary muscles, head and neck M79.12 and Chronic migraine without aura, intractable, without status migrainosus G43.719 [facility] [address] [place] [phone] 07/21/2024 Celestine Poole Migraine without aur a, intractable, without status migrainosus G43.019 ; Occipital neuralgia M54.81 and Myalgia of auxiliary muscles, head and neck M79.12 [facility] [address] [place] [phone] 08/20/2024 Celestine Virgilio Migraine without aur a, intractable, without status migrainosus G43.019 ; Occipital neuralgia M54.81 ; Trigeminal neuralgia G50.0 and Myalgia of auxiliary muscles, head and neck M79.12 [facility] [address] [place] [phone] 01/11/2025 Brenda Jaegle Occipital neuralgia M54.81 ; Chronic migraine without aura, intractable, without status migrainosus G43.719 ; Trigeminal neuralgia G50.0 and Myalgia of auxiliary muscles, head and neck M79.12 [facility], [email or web address] [address] [place] [phone] 01/21/2025 Brenda Jaegle Occipital neuralgia M54.81 ; Chronic migraine without aura, intractable, without status migrainosus G43.719 ; Trigeminal neuralgia G50.0 and Myalgia of auxiliary muscles, head and neck M79.12 [facility] [address] [place] [phone] 01/26/2025 Brenda Jaegle Occipital neuralgia M54.81 ; Chronic migraine without aura, intractable, without status migrainosus G43.719 ; Trigeminal neuralgia G50.0 ; Myalgia of auxiliary muscles, head and neck M79.12 and Encounter for screening for cardiovascular disorders Z13.6 [facility] [address] [place] [phone] 02/04/2025 Brenda Jaegle Occipital neuralgia M54.81 ; Chronic migraine without aura, intractable, without status migrainosus G43.719 ; Trigeminal neuralgia G50.0 ; Myalgia of auxiliary muscles, head and neck M79.12 and Syncope and collapse R55 [facility] [address] [place] [phone] 02/18/2025 Brenda Jaegle Occipital neuralgia M54.81 ; Chronic migraine without aura, intractable, without status migrainosus G43.719 ; Trigeminal neuralgia G50.0 ; Myalgia of auxiliary muscles, head and neck M79.12 and Syncope and collapse R55 [facility] [address] [place] [phone] 03/18/2025 Brenda Jaegle Occipital neuralgia M54.81 ; Chronic migraine without aura, intractable, without status migrainosus G43.719 ; Trigeminal neuralgia G50.0 and Myalgia of auxiliary muscles, head and neck M79.12 [facility] [address] [place] [phone] 04/01/2025 Brenda Jaegle Occipital neuralgia M54.81 ; Chronic migraine without aura, intractable, without status migrainosus G43.719 ; Trigeminal neuralgia G50.0 and Myalgia of auxiliary muscles, head and neck M79.12 [facility] [address] [place] [address] 04/06/2025 Celestineslick Poole Occipital neuralgia M54.81 ; Chronic migraine without aura, intractable, without status migrainosus G43.719 ; Trigeminal neuralgia G50.0 and Myalgia of auxiliary muscles, head and neck M79.12 [facility] [address] [place] [address] 05/05/2025 Brenda Jaegle Occipital neuralgia M54.81 ; Chronic migraine without aura, intractable, without status migrainosus G43.719 ; Trigeminal neuralgia G50.0 and Myalgia of auxiliary muscles, head and neck M79.12 [facility] [address] [place] [address] 06/02/2025 Brenda Jaegle Occipital neuralgia M54.81 ; Chronic migraine without aura, intractable, without status migrainosus G43.719 ; Trigeminal neuralgia G50.0 and Myalgia of auxiliary muscles, head and neck M79.12 [facility] [address] [place] [address] 06/02/2025 Celestine Poole [facility] [address] [place] [address] 07/14/2024 Celestine Poole [facility] [address] [place] [address] 07/14/2024 Brenda Odonnell [facility] [address] [place] [address] 01/19/2025 Celestine Poole [facility] [address] [place] [address] 01/20/2025 Celestine Poole [facility] [address] [place] [address] 02/03/2025 Celestine Poole [facility] [address] [place] [address] 02/10/2025 Celestine Poole [facility] [address] [place] [address] 02/10/2025 Celestine Poole [facility] [address] [place] [address] 02/18/2025 Celestine Poole [facility] [address] [place] [address] 02/18/2025 Celestine Poole [facility] [address] [place] [address] 03/04/2025 Celestine Poole Assessments Encounter Date Diagnosis [...] Pt was seen and evaluated by Brenda GUZAMN under the direct supervision of Dr. Poole [...] Pt consents to treatment in office. 06/02/2025 Occipital neuralgia (ICD-10 - M54.81) Patient [...] father where he went to see a automation qtp tester and will plan to refer there for [...] f/u on PA. -Pt to look into [facility] paperwork and will call our office [...] Pt was seen and evaluated by Brenda GZUMAN under the direct supervision of Dr. Poole [...] Brenda GUZMAN. Pt consents to virtual visit. 06/02/2025 Trigeminal neuralgia (ICD-10 - G50.0) Patient presents for evaluation and management. Pt was seen and evaluated by Brenda GUZMAN under the supervision of Dr. Celestine Poole who was in the office at the time of the visit and available for consultation as needed. Pt consents to treatment in office. 05/05/2025 Myalgia of auxiliary muscles, head and [...] needed. Pt consents to treatment in office. 04/01/2025 Myalgia of auxiliary muscles, head and [...] Treatment Next Appt Details Provider Name:Brenda Odonnell, 1 03:00:00 PM, [address] [place], [address], Insurance Providers Payer Name Payer Address Payer Phone Subscriber Number Group Number Insured Name Patient Relationship to Insured Coverage Start Date Coverage End Date [facility]/HMO [address] [place], [place] [id number] Dania Ferreira Self - patient is the insured 5 Medical (General) History Medical History History ICD Code Migraines Unknown anaphylactic allergy Insomnia Surgical History Surgery Date(Month/Year) lacrimal ducts 04/1999 Roxie teeth removed Ingrown toenails Mole removal 08/19/23 Hospitalization History Reason Date(Month/Year) anaphylactic reaction 06/2022
== END 2025-06-03 09:18 | disposition home or self-care (01) ==
LOC: HO.HWS 09:08
PROVIDERS: Visit Provider Advanced Practice Midwife
DX: Z30.9 Encounter for contraceptive management, unspecified (principal)
CPT/HCPCS: 99499

== ENCOUNTER → 2025-06-03 09:08 | Outpatient (BNVA) | payer BC, SELFPAY | PROVIDERS: Visit Provider Advanced Practice Midwife | DX: Z30.013 Encounter for initial prescription of injectable contraceptive (principal) | CPT/HCPCS: 96372; J1050 ==

== ENCOUNTER 2025-08-19 09:30 | Outpatient (AMB) | payer BC, SELFPAY ==
--- NOTE | 2025-08-19 09:31 | AM.OFFVISNUR ---
Vital Signs 08/19/25 09:35 Height 5 ft 4 in Weight 115 lb BMI 19.7 Intake Visit Reasons: depo Allergies No Known Allergies Allergy (Verified 06/03/25 09:20) Nursing Note Patient here today for scheduled depo provera injection with medication. Patient had no complaints. Patient to schedule next depo inj in 12 weeks. (11/04-11/18) Office Procedures Depo Questionnaire If YES to any of the following questions, please consult a provider. Date of last injection: 06/03/25 Date of last gynecology exam: 06/02/25 Menstrual pattern since last injection has been: Not Applicable Irregular bleeding?: No Breast lumps or other breast changes?: No Changes in weight or appetite?: No Depression or changes in mood?: No Abnormal hair growth or loss?: No Skin problems (rash, acne, discoloration)?: No Pain at the injection site?: No Headaches?: No Nervousness?: No Abdominal pain or cramping?: No Dizziness or nausea?: No Fatigue or weakness?: No Decrease in sexual drive?: No Chest pain or shortness of breath?: No Swelling in arms or legs?: No Any other problems or concerns?: no concerns Form completed by?: Lissy mason Office Meds Depo-Provera 150 mg/mL intramuscular syringe Performing Provider: Kaera Lutz CNM Performing Location: [facility] Administered by: Arabella Shafer LPN on 08/19/25 09:31 Dose Route Admin Location Dispensed Lot Number Expiration Date [facility] [employer] 150 mg IM left deltoid 1 mL [id number] 11/06/27 50849-881-70 [facility] Total Dispensed Waste 1 mL 0 % Assessment & Plan Assessment & Plan Orders: Orders AMB Medroxyprogesterone Injection Patient Supplied Today Z30.42 - Encounter for surveillance of injectable contraceptive Coding Level of Care Code Established Pt Est Pt Level 1 (50619) Patient Type Established History Problem Focused Exam Problem Focused Medical Decision Making Straight Forward Time Spent (min) 20
[2025-08-19 09:35] VITALS: BMI 19.7
== END 2025-08-19 09:30 | disposition home or self-care (01) ==
LOC: HO.HWS 09:30
PROVIDERS: Visit Provider Advanced Practice Midwife
DX: Z30.42 Encounter for surveillance of injectable contraceptive (principal)
CPT/HCPCS: 99499

== ENCOUNTER → 2025-08-19 09:30 | Outpatient (BNVA) | payer BC, SELFPAY | PROVIDERS: Visit Provider Advanced Practice Midwife | DX: Z30.42 Encounter for surveillance of injectable contraceptive (principal) | CPT/HCPCS: 96372; J1050 ==